=== PATIENT | female | born 1940 | race Caucasian/White ===

== ENCOUNTER 2017-07-19 03:52 | Inpatient (IN) | payer OTHER, MEDICARE ==
[2017-07-19] MEDS ORDERED: NA CHLORIDE 0.9% 1,000 ML ONE ×2 (04:11→06:10)
[2017-07-19] MEDS ORDERED: PANTOPRAZOLE 40 MG INJ ONE ×3 (04:29→06:18)
[2017-07-19] MEDS ORDERED: ONDANSETRON 4 MG/2 ML VIAL ONE (04:29)
[2017-07-19 04:37] LABS: Absolute Lymphocytes (CBC) 1.5 K/uL (0.7-4.9); Absolute Monocytes 0.8 K/uL (0.1-1.3); Absolute Neutrophil 9.5 K/uL (1.8-8.0); Basophils % 0.7 % (0-1.3); Eosinophils % 0.4 % (0-4.4); Hematocrit 34.2 % (36.0-45.0); Lymphocytes % 12.8 % (15.3-44.8); MCH 31.1 pg (27.0-35.0); MCV 94.8 fL (80-100); MPV 7.5 fL (7.6-11.3); Monocytes % 7.1 % (3.3-12.3)
[2017-07-19 04:45] LABS: Protime INR 1.8
[2017-07-19 04:52] LABS: Potassium 5.3 mEq/L (3.6-5.0)
[2017-07-19 04:58] LABS: Albumin 3.4 g/dL (3.2-5.5); Bilirubin Direct 0.1 mg/dL (0-0.2); Bilirubin Total 0.5 mg/dL (0.3-1.2); Protein, Total 6.1 g/dL (6.0-8.3)
[2017-07-19] MEDS ORDERED: NA CHLORIDE 0.9% 250 ML IV SCH (05:00)
[2017-07-19] MEDS: NA CHLORIDE 0.9% 1,000 ML IV SCH ×4 (05:00→19:00)
[2017-07-19] MEDS ORDERED: ONDANSETRON 4 MG/2 ML VIAL IV PRN (05:00)
[2017-07-19] MEDS: PANTOPRAZOLE INJ 80 MG in NA CHLORIDE 0.9% 250 ML IV SCH ×3 (05:00→16:38)
[2017-07-19] MEDS ORDERED: MORPHINE 2 MG/ML SYR IV PRN (05:00)
--- NOTE | 2017-07-19 05:09 | ER ---
Nurse's Notes [facility] Name: Peggy Junior Age: 77 yrs Sex: Female : 1940 Arrival Date: 07/19/2017 Time: 03:55 Bed 7 Private MD: Diagnosis: Gastrointestinal hemorrhage, unspecified Presentation: 07/19 03:56 Presenting complaint: EMS states: Nausea and vomiting since last night. Reports vomited aa1 x 2 and last episode was a dark colored emesis which concerned pt it may be blood. Reports last ate black licorice and drank a coke. Transition of care: patient was not received from another setting of care. Onset of symptoms was July 19, 2017. Risk Assessment: Do you want to hurt yourself or someone else? Patient reports no desire to harm self or others. Initial Sepsis Screen: Does the patient meet any 2 criteria? No. Patient's initial sepsis screen is negative. Does the patient have a suspected source of infection? No. Patient's initial sepsis screen is negative. Care prior to arrival: IV initiated. 20 GA, in the right antecubital area. 03:56 Method Of Arrival: EMS: [facility] aa1 03:56 Acuity: VICTORINO 3 aa1 Triage Assessment: 07:38 GI: Reports nausea, vomiting. tw2 Historical: - Allergies: 04:17 Aspirin; aa1 04:17 Demerol; aa1 04:17 -myocins; aa1 04:17 OPIOID ANALGESICS; aa1 04:17 PENICILLINS; aa1 04:17 SALICYLATES; aa1 - Home Meds: 04:17 gabapentin 600 mg Oral tab twice a day [Active]; magnesium oxide 500 mg Oral tab daily aa1 [Active]; spironolactone 25 mg Oral tab 1 tab once daily [Active]; Xarelto 20 mg Oral tab 1 tab once daily [Active]; Bystolic 5 mg oral tab 1 tab once daily [Active]; - PMHx: 04:21 Alzheimers; Atrial Fib; gastric ulcers; GERD; Hypertension; tremors; Von Willebrand aa1 disease; GI Bleed; - PSHx: 04:21 multiple orthopedic sx; aa1 - Immunization history:: Flu vaccine is up to date. - Social history:: Smoking status: Patient/guardian denies using tobacco. Screenin:55 Abuse screen: Denies threats or abuse. Denies injuries from another. Nutritional aa1 screening: No deficits noted. Tuberculosis screening: No symptoms or risk factors identified. Fall Risk None identified. Assessment: 03:55 General: Appears in no apparent distress. comfortable, Behavior is calm, cooperative, aa1 appropriate for age. Pain: Complains of pain in abdomen Pain currently is 4 out of 10 on a pain scale. Quality of pain is described as crampy. Neuro: Level of Consciousness is awake, alert, obeys commands, Oriented to person, place, time, situation, Moves all extremities. Speech is normal. Cardiovascular: Heart tones S1 S2 present Rhythm is regular. Respiratory: Airway is patent Respiratory effort is even, unlabored, Respiratory pattern is regular, symmetrical. GI: Abdomen is non-distended, Bowel sounds present X 4 quads. Abd is soft and non tender X 4 quads. : No signs and/or symptoms were reported regarding the genitourinary system. EENT: No signs and/or symptoms were reported regarding the EENT system. Derm: Skin is intact, is healthy with good turgor, Skin is clammy, Skin is pale, Skin temperature is warm. Musculoskeletal: Circulation, motion, and sensation intact. Capillary refill < 3 seconds. 04:45 Reassessment: Patient appears in no apparent distress at this time. Patient and/or aa1 family updated on plan of care and expected duration. Pain level reassessed. Patient is alert, oriented x 3, equal unlabored respirations, skin warm/dry/pink. Awaiting provider reassessment. 05:45 Reassessment: Patient appears in no apparent distress at this time. Patient and/or aa1 family updated on plan of care and expected duration. Pain level reassessed. Patient is alert, oriented x 3, equal unlabored respirations, skin warm/dry/pink. Attempted to call report to 2nd floor, was told by charge nurse they were unaware they were receiving the pt and will call back momentarily. 06:08 Reassessment: 2nd attempt made to call report to floor, was placed on hold with no mg2 answer. 06:16 Reassessment: report given to Dari Mendoza RN for room 218. bb 06:20 Reassessment: Pt vomited large amount of bloody emesis then became pale and aa1 diaphoretic. Cleaned of emesis and gown and linens changed. BP decreased at this time, MD notified and additional NS bolus administered. 06:35 Reassessment: Patient appears in no apparent distress at this time. Pt BP improved and aa1 states she is feeling better. No longer appears diaphoretic. Pt had small formed stool with no visible evidence of blood Patient states symptoms have improved. 08:17 Reassessment: Patient appears in no apparent distress at this time. Patient and/or tw2 family updated on plan of care and expected duration. Pain level reassessed. Patient is alert, oriented x 3, equal unlabored respirations, skin warm/dry/pink. 1 unit packed RBC's ordered from lab, see TRANSFUSION RECORD in pts chart, consent signed. Vital Signs: 03:51 BP 114 / 74; Pulse 74; Resp 20; Temp 98.2; Pulse Ox 100% ; Weight 79.38 kg; Height 5 aa1 ft. 6 in. (167.64 cm); Pain 4/10; 04:44 BP 117 / 59; Pulse 75; Resp 16; Pulse Ox 99% on R/A; aa1 05:46 BP 105 / 65; Pulse 85; Resp 16; Pulse Ox 99% on R/A; Pain 0/10; aa1 06:20 BP 67 / 53; Pulse 71; Resp 16; Pulse Ox 98% on R/A; aa1 06:51 BP 110 / 58 (man/); Pulse 74; Resp 16; Pulse Ox 99% on R/A; aa1 08:16 BP 115 / 61; Pulse 76; Resp 17; Pulse Ox 99% on R/A; tw2 03:51 Body Mass Index 28.25 (79.38 kg, 167.64 cm) aa1 ED Course: 03:51 Arm band placed on right wrist. Patient placed in an exam room, on a stretcher. aa1 03:55 Patient arrived in ED. aa1 03:55 Patient has correct armband on for positive identification. Placed in gown. Bed in low aa1 position. Call light in reach. Side rails up X2. monitoring specialist on. Pulse ox on. NIBP on. Warm blanket given. 03:55 Maintain EMS IV. Dressing intact. Good blood return noted. Site clean \T\ dry. Gauge \T\ aa 1 site: 20g RAC. 03:58 Gonzalo Coffman MD is Attending Physician. tw4 04:02 Triage completed. aa1 05:03 Del Mercado MD is Hospitalizing Provider. tw4 05:45 Melani Mcknight RN is Primary Nurse. aa1 05:46 No provider procedures requiring assistance completed. Patient admitted, IV remains in aa1 place. 06:25 Inserted saline lock: 22 gauge in left upper arm, using aseptic technique. aa1 06:40 Repeat lab(s) drawn. by nc, sent to lab. aa1 07:31 Samantha Arredondo RN is Primary Nurse. tw2 10:00 Report given to AILYN Lyons. tw2 Administered Medications: 04:10 Drug: NS 0.9% 1000 ml Route: IV; Rate: 1000 ml; Site: right antecubital; bb 04:35 Drug: Zofran 4 mg Route: IVP; Site: right antecubital; bb 04:35 Drug: ProTONIX 40 mg Route: IVP; Site: right antecubital; bb 06:52 Follow up: Response: No adverse reaction mg2 05:52 Drug: Phenergan 12.5 mg Route: IVP; Site: right antecubital; mg2 06:51 Follow up: Response: No adverse reaction; Vomiting increased mg2 06:20 Drug: ProTONIX 8 mg/hr Route: IV; Rate: 25 ml/hr; Site: right antecubital; bb 06:49 Follow up: IV Status: Infusion continued upon admission aa1 07:00 Follow up: IV Status: Infusion continued upon admission; see meditech chart tw2 06:30 Drug: NS 0.9% 1000 ml Route: IV; Rate: 1000 ml; Site: left upper arm; aa1 08:32 Follow up: IV Status: Completed infusion ae1 Intake: Outcome: 05:08 Decision to Hospitalize by Provider. tw4 12:18 Admitted to ICU accompanied by nurse, accompanied by tech, via stretcher, room 3, on ae1 monitor, with chart, Report called to Olivia Spence RN 12:18 Condition: stable 12:18 Instructed on the need for admit, Demonstrated understanding of instructions, follow-up care. 12:19 Patient left the ED. ae1 Signatures: Melani Mcknight, AILYN RN aa1 Maya Waite RN RN bb Samantha Arredondo RN RN tw2 Cali Ochoa RN RN ae1 Gonzalo Coffman MD MD tw4 Lucas English, RN RN mg2
--- NOTE | 2017-07-19 05:09 | EDPHYS ---
Physician Documentation [facility] Name: Peggy Junior Age: 77 yrs Sex: Female : 1940 Arrival Date: 07/19/2017 Time: 03:55 Bed 7 Private MD: ED Physician Gonzalo Coffman HPI: 07/19 04:24 This 77 yrs old Female presents to ER via EMS with complaints of tw4 Nausea/Vomiting. 04:24 The patient presents to the emergency department with nausea, vomiting, Onset: The tw4 symptoms/episode began/occurred just prior to arrival, today. Possible causes: unknown. The symptoms are aggravated by nothing. The symptoms are alleviated by nothing. Associated signs and symptoms: The patient has no apparent associated signs or symptoms. Severity of symptoms: At their worst the symptoms were moderate in the emergency department the symptoms are unchanged. The patient has not experienced similar symptoms in the past. Historical: - Allergies: 04:17 Aspirin; aa1 04:17 Demerol; aa1 04:17 -myocins; aa1 04:17 OPIOID ANALGESICS; aa1 04:17 PENICILLINS; aa1 04:17 SALICYLATES; aa1 - Home Meds: 04:17 gabapentin 600 mg Oral tab twice a day [Active]; magnesium oxide 500 mg Oral tab daily aa1 [Active]; spironolactone 25 mg Oral tab 1 tab once daily [Active]; Xarelto 20 mg Oral tab 1 tab once daily [Active]; Bystolic 5 mg oral tab 1 tab once daily [Active]; - PMHx: 04:21 Alzheimers; Atrial Fib; gastric ulcers; GERD; Hypertension; tremors; Von Willebrand aa1 disease; GI Bleed; - PSHx: 04:21 multiple orthopedic sx; aa1 - Immunization history:: Flu vaccine is up to date. - Social history:: Smoking status: Patient/guardian denies using tobacco. ROS: 04:24 Constitutional: Negative for fever, chills, and weight loss, Cardiovascular: Negative tw4 for chest pain, palpitations, and edema, Respiratory: Negative for shortness of breath, cough, wheezing, and pleuritic chest pain, Back: Negative for injury and pain, MS/Extremity: Negative for injury and deformity, Neuro: Negative for headache, weakness, numbness, tingling, and seizure, Psych: Negative for depression, anxiety, suicide ideation, homicidal ideation, and hallucinations. 04:24 Abdomen/GI: Positive for nausea, vomiting, and diarrhea, nausea, hematemesis, Negative for vomiting, diarrhea, constipation, rectal pain, rectal bleeding. Exam: 04:24 Constitutional: This is a well developed, well nourished patient who is awake, alert, tw4 and in no acute distress. Head/Face: Normocephalic, atraumatic. Chest/axilla: Normal chest wall appearance and motion. Nontender with no deformity. No lesions are appreciated. Cardiovascular: Regular rate and rhythm with a normal S1 and S2. No gallops, murmurs, or rubs. Normal PMI, no JVD. No pulse deficits. Respiratory: Lungs have equal breath sounds bilaterally, clear to auscultation and percussion. No rales, rhonchi or wheezes noted. No increased work of breathing, no retractions or nasal flaring. Abdomen/GI: Soft, non-tender, with normal bowel sounds. No distension or tympany. No guarding or rebound. No evidence of tenderness throughout. Back: No spinal tenderness. No costovertebral tenderness. Full range of motion. MS/ Extremity: Pulses equal, no cyanosis. Neurovascular intact. Full, normal range of motion. Vital Signs: 03:51 BP 114 / 74; Pulse 74; Resp 20; Temp 98.2; Pulse Ox 100% ; Weight 79.38 kg; Height 5 aa1 ft. 6 in. (167.64 cm); Pain 4/10; 04:44 BP 117 / 59; Pulse 75; Resp 16; Pulse Ox 99% on R/A; aa1 05:46 BP 105 / 65; Pulse 85; Resp 16; Pulse Ox 99% on R/A; Pain 0/10; aa1 06:20 BP 67 / 53; Pulse 71; Resp 16; Pulse Ox 98% on R/A; aa1 06:51 BP 110 / 58 (man/); Pulse 74; Resp 16; Pulse Ox 99% on R/A; aa1 08:16 BP 115 / 61; Pulse 76; Resp 17; Pulse Ox 99% on R/A; tw2 03:51 Body Mass Index 28.25 (79.38 kg, 167.64 cm) aa1 MDM: 03:58 Patient medically screened. tw4 05:08 Differential diagnosis: Nonspecific abd pain, pancreatitis, appendicitis, tw4 diverticulitis. Data reviewed: vital signs, nurses notes. Counseling: I had a detailed discussion with the patient and/or guardian regarding: the historical points, exam findings, and any diagnostic results supporting the discharge/admit diagnosis. Physician consultation: Del Mercado MD was contacted at 05:12, regarding admission, need to come to ED to see patient. Admission orders: after a detailed discussion of the patient's condition and case, the admit orders are written by me. 07/19 04:15 Order name: Amylase, Serum 07/19 04:15 Order name: Basic Metabolic Panel 07/19 04:15 Order name: CBC with Diff; Complete Time: 04:57 07/19 04:57 Interpretation: Normal except: WBC 12.0; HGB 11.2; HCT 34.2; RBC 3.60; RDW 12.0; LYM% tw4 12.8; KAROLYN% 79.0; MPV 7.5. 07/19 04:15 Order name: Creatinine for Radiology; Complete Time: 04:57 tw07/19 04:15 Order name: Hepatic Function 07/19 04:15 Order name: Lipase 07/19 04:15 Order name: Urine Microscopic Only 07/19 04:15 Order name: Type And Screen 07/19 04:15 Order name: Ptt, Activated 07/19 04:15 Order name: PT-INR 07/19 04:50 Order name: Urine Dipstick--Ancillary (enter results) 2 07/19 05:05 Order name: CBC with Automated Diff EDMS 07/19 05:05 Order name: CBC with Automated Diff EDMS 07/19 05:05 Order name: Hematocrit EDMS 07/19 05:05 Order name: Hematocrit EDMS 07/19 05:05 Order name: Hematocrit EDMS 07/19 05:05 Order name: Hematocrit EDMS 07/19 05:05 Order name: Hemoglobin EDMS 07/19 05:05 Order name: Hemoglobin EDMS 07/19 05:05 Order name: Hemoglobin EDMS 07/19 05:05 Order name: Hemoglobin EDMS 07/19 05:05 Order name: Protime (+INR) EDMS 07/19 05:05 Order name: Protime (+INR) EDIL 07/19 05:05 Order name: PTT, Activated Partial Thromb EDIL 07/19 05:05 Order name: PTT, Activated Partial Thromb EDIL 07/19 06:36 Order name: Hemoglobin 07/19 06:36 Order name: Hematocrit 07/19 06:56 Order name: Hemoglobin EDIL 07/19 06:56 Order name: Hematocrit EDIL 07/19 04:15 Order name: IV Saline Lock; Complete Time: 04:26 tw4 07/19 04:15 Order name: Labs collected and sent; Complete Time: 04:26 tw4 07/19 04:15 Order name: Urine Dipstick-Ancillary (obtain specimen); Complete Time: 04:43 tw4 07/19 05:04 Order name: CONS Pharmacy Consult EDIL 07/19 05:04 Order name: CONS Physician Consult EDIL 07/19 05:04 Order name: NPO EDIL 07/19 05:04 Order name: EKG Electrocardiogram EDIL 07/19 05:04 Order name: EKG Electrocardiogram EDIL 07/19 05:04 Order name: EKG Electrocardiogram EDIL 07/19 05:04 Order name: EKG Electrocardiogram EDMS 07/19 05:05 Order name: EKG Electrocardiogram EDMS 07/19 05:05 Order name: EKG Electrocardiogram EDMS 07/19 05:05 Order name: EKG Electrocardiogram EDMS 07/19 05:05 Order name: EKG Electrocardiogram EDIL 07/19 05:05 Order name: EKG Electrocardiogram EDMS 07/19 05:05 Order name: EKG Electrocardiogram EDMS 07/19 05:05 Order name: EKG Electrocardiogram EDIL 07/19 06:26 Order name: Transfuse; Complete Time: 08:32 tw4 Administered Medications: 04:10 Drug: NS 0.9% 1000 ml Route: IV; Rate: 1000 ml; Site: right antecubital; bb 04:35 Drug: Zofran 4 mg Route: IVP; Site: right antecubital; bb 04:35 Drug: ProTONIX 40 mg Route: IVP; Site: right antecubital; bb 06:52 Follow up: Response: No adverse reaction mg2 05:52 Drug: Phenergan 12.5 mg Route: IVP; Site: right antecubital; mg2 06:51 Follow up: Response: No adverse reaction; Vomiting increased mg2 06:20 Drug: ProTONIX 8 mg/hr Route: IV; Rate: 25 ml/hr; Site: right antecubital; bb 06:49 Follow up: IV Status: Infusion continued upon admission aa1 07:00 Follow up: IV Status: Infusion continued upon admission; see [facility] chart tw2 06:30 Drug: NS 0.9% 1000 ml Route: IV; Rate: 1000 ml; Site: left upper arm; aa1 08:32 Follow up: IV Status: Completed infusion ae1 Disposition: 07/19/17 05:08 Hospitalization ordered by Del Mercado for Inpatient Admission. Preliminary diagnosis is Gastrointestinal hemorrhage, unspecified. - Bed requested for Intensive Care Unit. - Status is Inpatient Admission. ae1 - Condition is Stable. - Problem is new. - Symptoms have improved. UTI on Admission? No Signatures: Dispatcher [employer] EDMS Jermaine Escoto rg2 Kalpana Junior RN RN kl Melani Mcknight RN RN aa1 Maya Waite RN RN bb Cali Ochoa RN RN ae1 Anat Rosas RN RN df Gonzalo Coffman MD MD tw4 Lucas English RN RN mg2 Samantha Arredondo RN tw2 Corrections: (The following items were deleted from the chart) 04:57 04:57 WBC 12.0; HGB 11.2; HCT 34.2; RBC 3.60; RDW 12.0; LYM% 12.8; KAROLYN% 79.0; MPV 7.5. tw4 tw4 05:21 05:08 Hospitalization Ordered by Del Mercado MD for Inpatient Admission. Preliminary kl diagnosis is Gastrointestinal hemorrhage, unspecified. Bed requested for Telemetry/MedSurg (Inpatient). Status is Inpatient Admission. Condition is Stable. Problem is new. Symptoms have improved. UTI on Admission? No. tw4 06:28 05:21 07/19/2017 05:08 Hospitalization Ordered by Del Mercado MD for Inpatient rg2 Admission. Preliminary diagnosis is Gastrointestinal hemorrhage, unspecified. Bed requested for Telemetry/MedSurg (Inpatient). Status is Inpatient Admission. Condition is Stable. Problem is new. Symptoms have improved. UTI on Admission? No. kl 10:50 06:28 07/19/2017 05:08 Hospitalization Ordered by Del Mercado MD for Inpatient df Admission. Preliminary diagnosis is Gastrointestinal hemorrhage, unspecified. Bed requested for [facility] ER HOLD. Status is Inpatient Admission. Condition is Stable. Problem is new. Symptoms have improved. UTI on Admission? No. rg2 12:19 10:50 07/19/2017 05:08 Hospitalization Ordered by Del Mercado MD for Inpatient ae1 Admission. Preliminary diagnosis is Gastrointestinal hemorrhage, unspecified. Bed requested for Intensive Care Unit. Status is Inpatient Admission. Condition is Stable. Problem is new. Symptoms have improved. UTI on Admission? No. df
[2017-07-19 05:16] LABS: Urine Blood NEGATIVE (NEG); Urine Glucose NEGATIVE (NEG); Urine Protein 2+ (NEG); Urine Specific Gravity 1.015 (1.005-1.030); Urine pH 6.5 (5.0-7.0)
[2017-07-19] MEDS ORDERED: PROMETHAZINE 25 MG/ML VIAL ONE (05:42)
[2017-07-19 05:55] LABS: Urine Bacteria <20 /HPF (<20); Urine Culture Reflex Order REFLEXED; Urine RBC <5 /HPF (NONE SEEN)
[2017-07-19] MEDS ORDERED: NA CHLORIDE 0.9% 250 ML ONE (06:13)
[2017-07-19] MEDS ORDERED: Morphine 2 MG/2 ML SYR IV PRN (07:18)
[2017-07-19] MEDS ORDERED: NA CHLORIDE 0.9% 500 ML ONE ×2 (08:02→13:07)
--- NOTE | 2017-07-19 09:11 | P.HP ---
Certification for Inpatient Patient admitted to: Inpatient With expected LOS: >2 Midnights Patient will require the following post-hospital care: None Practitioner: I am a practitioner with admitting privileges, knowledge of patient current condition, hospital course, and medical plan of care. Services: Services provided to patient in accordance with Admission requirements found in Title 42 Section 412.3 of the Code of Federal Regulations Patient History Date of Service: 07/19/17 Reason for admission: GI bleeding History of Present Illness: Patient is a 77-year-old female who was admitted to the hospital with a gastrointestinal bleeding. Patient has the longstanding history of alcohol use. She used to drink more regularly in the past but now drinks about 2 bottles of 12 oz beer daily. She was having some shoulder pain and decided to take 2 Aleve as well. About 24 hr after that she noticed she was nauseated and when she vomited she had coffee-ground emesis and also some bright red blood. She had a large stool while she was in the emergency room and this was melanotic. Patient has dementia however she is able to communicate effectively. Her gives most of the information. Her hemoglobin has dropped while she has been in the Emergency Room and plan is to transfuse her 2 units of packed red blood cells and get a GI consultation. Will keep her on a PPI drip and put her on DT prevention. The patient also has a history of atrial fibrillation. Patient is taking sotalol as well as Xarelto in the past. Will update her home medication list to see if she is still on an anticoagulant. She was started on Bystolic recently by her primary care provider. There is mention that she is on sotalol already. Will have to review her home medications. Also she was told she had von Willebrand's disease when she was young. She had genetic testing done at [facility] in [place]. However, when she was older and the test had become more sophisticated she states she was tested and it came out negative. She was told that she does not have Von Willebrand's disease. is Allergies Penicillins Allergy (Mild, Unverified 06/28/16 12:45) Unknown meperidine [From Demerol] Allergy (Unverified 06/05/16 20:11) Unknown salicylates Allergy (Verified 03/31/16 20:26) Rash aspirin Adverse Reaction (Verified 03/31/16 20:26) bleeding -myocins Allergy (Intermediate, Uncoded 03/31/16 20:26) Itching OPIOID ANAL Allergy (Uncoded 08/07/16 18:56) Unknown OPIOID ANALG Allergy (Uncoded 07/24/16 22:10) Unknown OPIOID ANALGES Allergy (Uncoded 06/05/16 20:11) Unknown OPIOID ANALGESI Allergy (Uncoded 07/11/16 12:30) Unknown Home Medications: Magnesium Oxide [Mag 0X*] 400 mg PO BID #60 tab 07/08/15 Gabapentin 1 tab PO BID 03/31/16 Rivaroxaban [Xarelto] 20 mg PO DAILY AT SUPPER #30 tablet 04/13/16 Rivastigmine Patch [Exelon 4.6 mg Patch*] 4.6 mg TD DAILY patch 04/13/16 Sotalol HCl [Betapace*] 80 mg PO BID 6AM 6PM tab 04/13/16 - Past Medical/Surgical History Has patient received pneumonia vaccine in the past: Yes Diabetic: No -: HTN -: A-fib -: Arthritis -: gastric ulcer with perforation -: Syncope -: last week in [place] [facility].-dx w/C-diff & Salmonella -: GERD -: L knee sx 2010 -: Perforated Peptic ulcer sx-2012 - Family History Mother Medical History: Heart disease Notes: thyroid disease Brother Medical History: Hypertension, Cancer - Social History Alcohol use: Yes CD- Drugs: No Caffeine use: Yes Review of Systems 10-point ROS is otherwise unremarkable Physical Examination - Vital Signs Temperature: 97.7 F Blood Pressure: 108/56 Pulse: 73 Respirations: 17 Pulse Ox (%): 100 - Physical Exam General: Alert, In no apparent distress, Oriented x2 HEENT: Atraumatic, PERRLA, Mucous membr. moist/pink, EOMI, Sclerae nonicteric Neck: Supple, 2+ carotid pulse no bruit, No LAD, Without JVD or thyroid abnormality Respiratory: Clear to auscultation bilaterally, Normal air movement Cardiovascular: Regular rate/rhythm, Normal S1 S2, No murmurs Gastrointestinal: Normal bowel sounds, Soft and benign, Non-distended, No tenderness Musculoskeletal: No clubbing, No swelling, No tenderness Integumentary: No rashes Neurological: Normal gait, Normal speech, Normal strength at 5/5 x4 extr, Normal tone, Sensation intact, Cranial nerves 3-12 intact, Normal affect Lymphatics: No axilla or inguinal lymphadenopathy - Studies Laboratory Data (last 24 hrs) 07/19/17 05:15: Hgb Cancelled, Hct Cancelled 07/19/17 03:55: PT 21.4 H, INR 1.80, APTT 34.8 07/19/17 03:55: Creatinine 1.05 H 07/19/17 03:55: WBC 12.0 H, Hgb 11.2 L, Hct 34.2 L, Plt Count 390 07/19/17 03:55: Sodium 126 L, Potassium 5.3 H, BUN 36 H, Creatinine 1.07 H, Glucose 110, Total Bilirubin 0.5, AST 18, ALT 14, Alkaline Phosphatase 87, Amylase 107 H, Lipase 22 Assessment & Plan - Problems (Diagnosis) (1) GI bleeding Current Visit: Yes Status: Acute (2) Anemia associated with acute blood loss Current Visit: Yes Status: Acute (3) Alcohol abuse Current Visit: Yes Status: Acute (4) Ulcer of stomach due to nonsteroidal anti-inflammatory drug (NSAID) in therapeutic use Current Visit: Yes Status: Acute - Plan 1. Continue with IV hydration and PPI drip 2. Continue with IV Ativan and Librium as needed. Also a banana bag daily. 3. Continue with pain control 4. NPO 5. gastrointestinal consultation 6. Monitor LFTs and lipase along with electrolytes and serial H&H. 7. GI and DVT prophylaxis Discharge Plan: Home Plan to discharge in: 24 Hours - Advance Directives Does patient have a Living Will: No Does patient have a Durable POA for Healthcare: Yes - Code Status/Comfort Care Code Status Assessed: Yes Code Status: Full Code Critical Care: No Time Spent Managing PTS Care (In Minutes): 50
[2017-07-19] MEDS: OCTREOTIDE 500 MCG in NA CHLORIDE 0.9% 500 ML IV SCH ×2 (10:00→21:00)
[2017-07-19] MEDS: chlordiazePOXIDE HCl 5 MG CAP PO SCH ×2 (14:00→20:51)
[2017-07-19 19:17] LABS: Hematocrit 31.2 % (36.0-45.0)
[2017-07-19] MEDS ORDERED: SOD POLYSTYREN SUL 15 GM/60 ML UCUP PO ONE (22:03)
[2017-07-20] MEDS: PANTOPRAZOLE INJ 80 MG in NA CHLORIDE 0.9% 250 ML IV SCH ×4 (01:50→21:00)
[2017-07-20] MEDS: LORazepam 2 MG/ML VIAL IV PRN ×6 (02:05→21:31)
[2017-07-20] MEDS: OCTREOTIDE 500 MCG in NA CHLORIDE 0.9% 500 ML IV SCH ×3 (05:55→20:20)
[2017-07-20] MEDS: SOD POLYSTYREN SUL 15 GM/60 ML UCUP PO ONE ×2 (05:55→06:00)
[2017-07-20] MEDS ORDERED: PIPER/TAZO/NS 3.375gm 3.375 GM/100 ML BAG IVPB SCH (09:00)
[2017-07-20] MEDS: chlordiazePOXIDE HCl 5 MG CAP PO SCH ×3 (09:00→20:44)
--- NOTE | 2017-07-20 11:29 | P.PN ---
Subjective Date of Service: 07/20/17 Chief Complaint: GI bleeding Pt seen and examined at bedside with RN. Chart reviewed and Case DW with GI. Pt is currently is resting comfortably. Overnight pt was agitated and pulled out her IV line. Did not receive protonix for total of 8 hrs while the IV is out. Review of Systems General: As per HPI Physical Examination - Vital Signs Temperature: 97.4 F Blood Pressure: 137/60 Pulse: 53 Respirations: 20 Pulse Ox (%): 99 - Physical Exam General: Oriented x2, Cachectic, Other (Lethargic. ) HEENT: Atraumatic Neck: Supple, JVD not distended Respiratory: Normal air movement, Crackles/rales Cardiovascular: Regular rate/rhythm, Normal S1 S2 Gastrointestinal: Normal bowel sounds, Soft and benign, Non-distended, No tenderness, Ascites Musculoskeletal: No tenderness Integumentary: No rashes Neurological: Normal strength at 5/5 x4 extr, Normal tone, Normal affect Lymphatics: No axilla or inguinal lymphadenopathy - Studies Medications List Reviewed: Yes Assessment & Plan - Problems (Diagnosis) (1) GI bleeding Onset Date: 07/19/17 Current Visit: Yes Status: Acute Plan: GI bleeding with H/o Duodenal Ulcer now with dark tarry stools -IV fluids -IV protonix and Octreotide -GI consulted. Scheduled for EGD stanislaw -H/H q4h Qualifiers: GI bleed type/associated pathology: duodenal ulcer Qualified Code(s): K26.4 - Chronic or unspecified duodenal ulcer with hemorrhage (2) Ulcer of stomach due to nonsteroidal anti-inflammatory drug (NSAID) in therapeutic use Onset Date: 07/19/17 Current Visit: Yes Status: Chronic Plan: H/o of Duodenal ulcer with recent use of NSAIDS -See # 1 (3) Anemia associated with acute blood loss Onset Date: 07/19/17 Current Visit: Yes Status: Acute (4) Alcohol abuse Onset Date: 07/19/17 Current Visit: Yes Status: Acute Plan: Alcohol assessment qshift -Ativan for WD (5) UTI (urinary tract infection) Onset Date: 05/26/15 Current Visit: No Status: Acute Plan: Urine culture + for Gram - rods -Started on Meropenum. -Pt allergic to PCN Qualifiers: Urinary tract infection type: acute cystitis Hematuria presence: without hematuria Qualified Code(s): N30.00 - Acute cystitis without hematuria (6) Hyperlipidemia Onset Date: 06/14/16 Current Visit: No Status: Chronic Qualifiers: Hyperlipidemia type: unspecified Qualified Code(s): E78.5 - Hyperlipidemia , unspecified (7) Atrial fibrillation Current Visit: No Status: Chronic Plan: Held Anticoagulation at this time due to Acute bleeding Qualifiers: Atrial fibrillation type: chronic Qualified Code(s): I48.2 - Chronic atrial fibrillation (8) HTN (hypertension) Onset Date: 06/14/16 Current Visit: No Status: Chronic Qualifiers: Hypertension type: essential hypertension Qualified Code(s): I10 - Essential (primary) hypertension Discharge Plan: Home Plan to discharge in: 48 Hours - Code Status/Comfort Care Code Status Assessed: Yes Critical Care: No
[2017-07-20] MEDS ORDERED: Meropenem 1000 MG/VIAL IV SCH (12:00)
--- NOTE | 2017-07-20 14:16 | RAD REPORT ---
EXAM DESCRIPTION: RAD - Chest Single View - 07/20/2017 2:10 pm CLINICAL HISTORY: PICC line placement COMPARISON: None. FINDINGS: Portable chest was obtained following placement of a right upper extremity PICC line. The catheter tip is in the right atrium.
[2017-07-20] MEDS: Meropenem 1,000 MG in NA CHLORIDE 0.9% 100 ML IV SCH ×2 (15:16→21:27)
[2017-07-20] MEDS: FOLIC ACID 1 MG, MULTIVITAMINS INJ 10 ML, THIAMINE HCL 100 MG in NA CHLORIDE 0.9% 1,000 ML IV SCH (15:16)
[2017-07-20 15:28] LABS: Absolute Lymphocytes (CBC) 2.2 K/uL (0.7-4.9); Absolute Monocytes 0.8 K/uL (0.1-1.3); Absolute Neutrophil 6.3 K/uL (1.8-8.0); Basophils % 1.3 % (0-1.3); Eosinophils % 1.7 % (0-4.4); Hematocrit 29.1 % (36.0-45.0); Lymphocytes % 23.1 % (15.3-44.8); MCH 32.4 pg (27.0-35.0); MCV 92.7 fL (80-100); MPV 7.8 fL (7.6-11.3); Monocytes % 8.4 % (3.3-12.3); RBC Red Blood Cell Count 3.14 M/uL (3.86-4.86)
[2017-07-20 16:42] LABS: Albumin 3.4 g/dL (3.2-5.5); Bilirubin Total 1.1 mg/dL (0.3-1.2); Potassium 4.2 mEq/L (3.6-5.0); Protein, Total 5.5 g/dL (6.0-8.3)
[2017-07-20 16:44] LABS: Protime INR 1.05
--- NOTE | 2017-07-20 17:12 | CON ---
Identification: A 77-year-old female, ICU bed 3, Dr. Christina. Reason For Consultation: GI bleeding. History Of Present Illness: Ms. Junior is a 77-year-old female, who has dementia. She also has histo ry of bleeding ulcer in the past that has been repaired surgically. Apparently, the patient presente d with generalized symptoms of weakness, shortness of breath, unable to carry out normal activities. She has been also complaining of I think 1-week history of dark tarry stool. Denies any hematemesis . Denies any odynophagia, dysphagia. Denies any dyspepsia. The patient answered some questions appropriately; however, also she veers to irrelevant and inapprop riate conversation. At this time, denies any abdominal discomfort. Admits that she is weak. Past Medical History: As elaborated above in addition to hypertension. Past Surgical History: As above. Further is unknown at this time, no family member is nearby. Social History: History of alcohol use in the past. Psychiatric History: As elaborated above. Allergies: REVIEWED IN THE CHART. Medications: Reviewed in the chart. Review of Systems: Due to the patient's condition, it is hard to get and I am not sure how reliable it is. However what is evident is that, she has chronic deterioration of her health status. Physical Examination: General: Elderly female, at this time appears to be pale. No other acute distress noted. Hemodynam ic and respiratory profile within normal range. HEENT: Atraumatic, normocephalic. Oropharyngeal area is clear. Positive pallor. No icterus noted. Neck: Supple. No lymphadenopathy. Trachea central in position. CHEST: Poor air exchange; however, this is due to the patient's lack of cooperation. Cardiac: S1, S2 is accentuated. No S3, no S4. Abdomen: Soft, nontender, nondistended. Bowel sounds are excellent. Hepatomegaly, splenomegaly, an d ascites cannot be palpated because she is unable to cooperate, although she seems to be trying to c ooperate. Bowel sounds are excellent. No rebound tenderness. Neurologic: She is awake, alert and oriented x2. Memory is probably impaired. Judgment, I am not s ure. She can move all her extremities without any focal finding. Dermatologic: Shows decreased skin turgor. Some loss of subcutaneous pad of fat in the abdominal ar ea. Extremities: Upper and lower extremity muscle mass is symmetrically reduced. Diagnostic Data: Reviewed and analyzed, consistent with anemia. Impression, Plan, And Recommendation: Ms. Junior is a 77-year-old female with melena. She is still s ignificantly weak and somewhat short of breath. At this time, does not have any abdominal pain. She has past history of peptic ulcer disease and given the significant anemia and melena, she will need an upper GI endoscopy. I will prefer her to continue on proton pump inhibitor and IV octreotide. Fo llow serial hemoglobin, hematocrit. Transfuse as needed. I have discussed with her regarding the indications, contraindications, possible complications, alter natives of EGD. She seems to have a basic understanding and its potential risk of complication, alth ough I am not sure how much insight she has. Her ASA classification will be 3. Procedure will be do ne tomorrow to make sure hemoglobin and hematocrit is good. Preferably, I would like hemoglobin above 8 with transfusion. The patient did not have any question. JEAN/DOMINIQUE Voice ID: [id number] Report ID: [id number]
[2017-07-21] MEDS: PANTOPRAZOLE INJ 80 MG in NA CHLORIDE 0.9% 250 ML IV SCH ×2 (05:51→17:00)
--- NOTE | 2017-07-21 06:42 | EKG ---
Test Date: 2017-07-21 Test Time: 05:34:31 Group Therapist: RT MEASUREMENT RESULTS: Intervals: Rate: 59 OH: 170 QRSD: 120 QT: 424 QTc: 419 [place]: P: -3 OH: 170 QRS: -22 T: 55 INTERPRETIVE STATEMENTS: Sinus bradycardia Incomplete left bundle branch block Borderline ECG Compared to ECG 08/07/2016 15:33:11 Left bundle-branch block now present Sinus rhythm no longer present Ventricular premature complex(es) no longer present Myocardial infarct finding no longer present Electronically Signed On 07-21-17 06:41:59 CDT by Kennedy Herrera
[2017-07-21] MEDS: OCTREOTIDE 500 MCG in NA CHLORIDE 0.9% 500 ML IV SCH (06:43)
[2017-07-21] MEDS: LORazepam 2 MG/ML VIAL IV PRN ×4 (07:19→18:55)
[2017-07-21] MEDS ORDERED: Ringers Lactate 1,000 ML IV ONE (08:16)
[2017-07-21] MEDS: Meropenem 1,000 MG in NA CHLORIDE 0.9% 100 ML IV SCH (09:00)
[2017-07-21] MEDS: chlordiazePOXIDE HCl 5 MG CAP PO SCH ×3 (09:00→21:00)
[2017-07-21] MEDS ORDERED: PROPOFOL 200 MG/20 ML VIAL IV ONE (09:43)
[2017-07-21] MEDS: NA CHLORIDE 0.9% 1,000 ML IV SCH (11:00)
--- NOTE | 2017-07-21 11:32 | P.PN ---
Subjective Date of Service: 07/21/17 Chief Complaint: GI bleeding Pt seen and examined at bedside with RN. Chart reviewed and Case DW with GI. Pt is currently is resting comfortably. Pt is currently S/p EGD. Doing well overall. No complains to offer overnight. Review of Systems General: As per HPI Physical Examination - Vital Signs Temperature: 97 F Blood Pressure: 151/89 Pulse: 62 Respirations: 16 Pulse Ox (%): 100 - Physical Exam General: Alert, In no apparent distress HEENT: Atraumatic, PERRLA, EOMI Neck: Supple, JVD not distended Respiratory: Clear to auscultation bilaterally, Normal air movement Cardiovascular: Regular rate/rhythm, Normal S1 S2 Gastrointestinal: Normal bowel sounds, No tenderness Musculoskeletal: No tenderness Integumentary: No rashes Neurological: Normal speech, Normal tone, Normal affect Lymphatics: No axilla or inguinal lymphadenopathy - Studies Microbiology Data (last 24 hrs): 07/19/17 04:40 Clean Catch Urine Hermann Count - Final >100,000 CFU/ML. 07/19/17 04:40 Clean Catch Urine - Final Enterobacter Cloacae Medications List Reviewed: Yes Assessment & Plan - Problems (Diagnosis) (1) GI bleeding Onset Date: 07/19/17 Current Visit: Yes Status: Acute Plan: GI bleeding with H/o Duodenal Ulcer now with dark tarry stools -GI consulted. Appreciate Reccs -S/P EGD POD# 0 -Large Gastric Ulcer -IV protonix for now -CLD now -BMP q4h Qualifiers: GI bleed type/associated pathology: duodenal ulcer Qualified Code(s): K26.4 - Chronic or unspecified duodenal ulcer with hemorrhage (2) Ulcer of stomach due to nonsteroidal anti-inflammatory drug (NSAID) in therapeutic use Onset Date: 07/19/17 Current Visit: Yes Status: Chronic Plan: H/o of Duodenal ulcer with recent use of NSAIDS -See # 1 (3) Anemia associated with acute blood loss Onset Date: 07/19/17 Current Visit: Yes Status: Acute (4) Alcohol abuse Onset Date: 07/19/17 Current Visit: Yes Status: Acute Plan: Alcohol assessment qshift -Ativan for WD (5) UTI (urinary tract infection) Onset Date: 05/26/15 Current Visit: No Status: Acute Plan: Urine culture + for ESBL -Started on Meropenum 04/13 -Pt allergic to PCN Qualifiers: Urinary tract infection type: acute cystitis Hematuria presence: without hematuria Qualified Code(s): N30.00 - Acute cystitis without hematuria (6) Hyperlipidemia Onset Date: 06/14/16 Current Visit: No Status: Chronic Qualifiers: Hyperlipidemia type: unspecified Qualified Code(s): E78.5 - Hyperlipidemia , unspecified (7) Atrial fibrillation Current Visit: No Status: Chronic Plan: Held Anticoagulation at this time due to Acute bleeding Qualifiers: Atrial fibrillation type: chronic Qualified Code(s): I48.2 - Chronic atrial fibrillation (8) HTN (hypertension) Onset Date: 06/14/16 Current Visit: No Status: Chronic Qualifiers: Hypertension type: essential hypertension Qualified Code(s): I10 - Essential (primary) hypertension Discharge Plan: Home Plan to discharge in: 48 Hours - Code Status/Comfort Care Code Status Assessed: Yes Critical Care: No
[2017-07-21] MEDS: FOLIC ACID 1 MG, MULTIVITAMINS INJ 10 ML, THIAMINE HCL 100 MG in NA CHLORIDE 0.9% 1,000 ML IV SCH (11:36)
[2017-07-21 11:38] LABS: Absolute Lymphocytes (CBC) 1.1 K/uL (0.7-4.9); Absolute Monocytes 0.6 K/uL (0.1-1.3); Absolute Neutrophil 5.4 K/uL (1.8-8.0); Basophils % 1.1 % (0-1.3); Eosinophils % 2.9 % (0-4.4); Hematocrit 28.6 % (36.0-45.0); Lymphocytes % 14.4 % (15.3-44.8); MCH 31.5 pg (27.0-35.0); MPV 7.5 fL (7.6-11.3); Monocytes % 7.9 % (3.3-12.3); RBC Red Blood Cell Count 3.04 M/uL (3.86-4.86)
[2017-07-21 11:49] LABS: Albumin 3.1 g/dL (3.2-5.5); Bilirubin Total 0.6 mg/dL (0.3-1.2); Potassium 4.2 mEq/L (3.6-5.0); Protein, Total 5.2 g/dL (6.0-8.3)
--- NOTE | 2017-07-21 17:20 | RAD REPORT ---
EXAM DESCRIPTION: RAD - Chest Single View - 07/21/2017 5:15 pm CLINICAL HISTORY: PICC line placement. COMPARISON: None. FINDINGS: Portable chest was obtained following placement of a right upper extremity PICC line. The catheter tip is in the right atrium. Consider 2 cm of retraction for optimal placement.
--- NOTE | 2017-07-21 20:13 | OP ---
Surgeon: Jose Antonio Hardin MD Procedure Performed: Esophagogastroduodenoscopy. Indication For Procedure: Upper GI bleed. For full details, please refer to Dr. Portillo's consultation . Plan For Anesthesia: Monitored anesthesia care. Complexity: High due to probability of therapeutic intervention. Technique: After obtaining informed consent from the patient and explaining risks and complications, which include, but are not limited to bleeding, infection, perforation, and anesthesia complications , the patient was placed in the left lateral position and sedation was given. From then on, the scop e was advanced into the mouth and carefully guided up till the second portion of the duodenum. No ac tive bleeding seen, but stigmata of recent bleeding were identified. After the completion of examina tion, the scope and equipment were withdrawn and procedure terminated in a safe manner. Findings: Esophagus: In the distal esophagus a moderate stricture was visualized along with a deep ulcer. This also was clean based. The stricture allowed for just passage of the scope, probably leandra l need to be dilated in the future. There was also a small hiatal hernia that was seen. Stomach: Mild patchy erythema seen in the antrum. A large created but clean based ulcer was visuali zed. The ulcer was almost encompassing the half circumference of the antrum near the pyloric channel . Biopsies were taken from ulcer margin. Also, biopsies were taken from gastric body and antrum. D uodenum, the bulb, and second portion appeared normal. Complications: None. Tolerance: None. Anesthesia: Excellent. Postoperative Diagnoses: Large gastric ulcer, which is clean based, likely source of bleeding; esoph ageal ulcers, esophageal stenosis, hiatal hernia, gastritis. Plan: 1.Await pathology results. 2.We can start patient on clear liquid diet and advance as tolerated. 3.We will stop IV octreotide but continue her on the IV PPI. 4.Avoid NSAIDs. 5.We will need followup EGD probably in the next 2-3 weeks to take more biopsies of the ulcer. If t he initial biopsy is negative, she will need to follow up in the GI Clinic in 2-3 weeks. US/DARRELL Voice ID: [id number] Report ID: [id number]
[2017-07-21] MEDS ORDERED: levoFLOXacin 250 MG TAB PO SCH (21:00)
[2017-07-22] MEDS: LORazepam 2 MG/ML VIAL IV PRN ×2 (02:00→03:59)
[2017-07-22] MEDS: PANTOPRAZOLE INJ 80 MG in NA CHLORIDE 0.9% 250 ML IV SCH (02:26)
[2017-07-22 05:55] VITALS: BMI 28.8
[2017-07-22] MEDS: chlordiazePOXIDE HCl 5 MG CAP PO SCH (09:00)
[2017-07-22 09:16] VITALS: TEMP 97.4
--- NOTE | 2017-07-22 10:06 | P.DS ---
Admission Date: 07/19/17 Discharge Date: 07/22/17 Disposition: ROUTINE DISCHARGE Discharge Condition: GOOD Reason for Admission: GI bleeding Consultations: GI- Procedures: EGD: Large gastric ulcer, which is clean based, likely source of bleeding; esophageal ulcers, esophageal stenosis, hiatal hernia, gastritis. Plan: 1. Patient to avoid nonsteroidal anti-inflammatories. 2. Patient will continue with PPI twice daily. 3. Patient will need repeat EGD in 2-3 weeks to take more biopsies of ulcer. Patient will need close follow up with GI. - Problems (1) Gastric ulcer Current Visit: Yes Status: Acute Qualifiers: Gastric ulcer chronicity: acute Gastric ulcer complication status: with hemorrhage Qualified Code(s): K25.0 - Acute gastric ulcer with hemorrhage (2) Esophageal ulcer Current Visit: Yes Status: Acute Qualifiers: Esophageal ulcer bleeding: with bleeding Qualified Code(s): K22.11 - Ulcer of esophagus with bleeding (3) GI bleeding Onset Date: 07/19/17 Current Visit: Yes Status: Acute Qualifiers: GI bleed type/associated pathology: duodenal ulcer Qualified Code(s): K26.4 - Chronic or unspecified duodenal ulcer with hemorrhage (4) Anemia associated with acute blood loss Onset Date: 07/19/17 Current Visit: Yes Status: Acute (5) Alcohol abuse Onset Date: 07/19/17 Current Visit: Yes Status: Chronic (6) Ulcer of stomach due to nonsteroidal anti-inflammatory drug (NSAID) in therapeutic use Onset Date: 07/19/17 Current Visit: Yes Status: Chronic (7) Senile dementia Onset Date: 06/14/16 Current Visit: No Status: Chronic Qualifiers: Dementia behavioral disturbance: with behavioral disturbance Qualified Code (s): F03.91 - Unspecified dementia with behavioral disturbance (8) Hyperlipidemia Onset Date: 06/14/16 Current Visit: No Status: Chronic Qualifiers: Hyperlipidemia type: unspecified Qualified Code(s): E78.5 - Hyperlipidemia , unspecified (9) Atrial fibrillation Current Visit: No Status: Chronic Qualifiers: Atrial fibrillation type: paroxysmal Qualified Code(s): I48.0 - Paroxysmal atrial fibrillation (10) HTN (hypertension) Onset Date: 06/14/16 Current Visit: No Status: Chronic Qualifiers: Hypertension type: essential hypertension Qualified Code(s): I10 - Essential (primary) hypertension (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 Onset Date: 05/12/15 Current Visit: No Status: Chronic (12) Hiatal hernia with GERD Current Visit: Yes Status: Chronic (13) Osteoarthritis, multiple sites Onset Date: 06/14/16 Current Visit: No Status: Chronic Qualifiers: Osteoarthritis type: unspecified Qualified Code(s): M15.9 - Polyosteoarthritis, unspecified (14) UTI (urinary tract infection) Onset Date: 05/26/15 Current Visit: No Status: Acute Qualifiers: Urinary tract infection type: acute cystitis Hematuria presence: without hematuria Qualified Code(s): N30.00 - Acute cystitis without hematuria Brief History of Present Illness: 77-year-old female presented emergency room with coffee-ground emesis. Patient admitted for GI bleed. Patient found to be anemic. Blood transfusion initiated. GI consulted. Hospital Course: Patient presented with upper GI bleed. Patient required transfusion of blood. Patient with history of GERD. Patient also with recent history of nonsteroidal anti-inflammatory use for arthritis. Patient also on chronic anti coagulation due to atrial fibrillation. The patient was admitted to ICU. GI was consulted. Patient stabilize. Patient eventually had a EGD showing large gastric ulcer which is clean base likely source of bleeding, esophageal ulcers, esophageal stenosis, hiatal hernia and gastritis. Biopsy obtained. Biopsy pending at discharge. Patient doing well at discharge. Hemoglobin stable at 9.6. Patient able tolerate her diet. At discharge. Recommendation is to avoid nonsteroidal anti-inflammatory use. Patient will continue with Protonix 40 mg 1 pill twice daily. Patient will need to follow up with GI in 2-4 weeks to monitor progress. Patient will need repeat EGD in 2-4 weeks for repeat biopsies and monitoring of ulcer. Patient will need a follow up biopsy report. Recommendation is also to hold for chronic anti coagulation therapy-Xarelto for her atrial fibrillation for 48 hours. After 48 hr the medication can be continued. They to monitor for bleeding, melena or hematemesis. Patient also found to have a UTI during her stay. Urine culture was positive for enterobacter. At discharge patient will continue with Levaquin 250 mg 1 pill daily for 7 days. Recommendation is to recheck urine culture to monitor resolution. UTI prevention will need to be enforced. Patient with anemia as noted above. At discharge patient will continue with iron supplementation 325 mg 1 pill twice daily. Recommendation is to recheck CBC in 2-4 weeks to monitor progress. Patient has dementia. Patient will continue with Exelon patch daily. Patient will need a follow up with neurology to monitor her care. Patient has arthritis. She takes gabapentin. Patient will continue with gabapentin section mg 1 pill twice daily. As recommended above no nonsteroidal anti-inflammatory use is recommended. Patient may take Tylenol as needed. Patient has underlying chronic renal disease up with nephrology as an outpatient further monitor. Recommendation to recheck BMP in 1-2 weeks to monitor progress. Future medications will need to be renally dosed. Patient has atrial fibrillation. This remained stable. As mentioned above patient will need to hold her chronic anti coagulation therapy-Xarelto for 48 hr. After that time this can be restarted. Patient will need to monitor for bleeding, melena, hematemesis. Patient will continue with her rate control medication-sotalol 80 mg 1 pill twice daily. Recommendations for the to follow up with cardiology outpatient further monitor. Vital Signs/Physical Exam: Temp Pulse Resp BP Pulse Ox 97.4 F 75 16 142/85 H 99 07/22/17 08:00 07/22/17 09:00 07/22/17 09:00 07/22/17 09:00 07/22/17 09:00 General: Alert, In no apparent distress, Demented (Moderate dementia) HEENT: Atraumatic Neck: Supple Respiratory: Clear to auscultation bilaterally, Normal air movement Cardiovascular: Normal pulses, Regular rate/rhythm Gastrointestinal: Normal bowel sounds, Soft and benign, Non-distended, No tenderness, No masses, No rebound, No guarding Musculoskeletal: No erythema, No tenderness, No warmth Integumentary: No erythema, No warmth, No cyanosis Neurological: Normal speech, Normal strength at 5/5 x4 extr, Normal tone, Dementia (Moderate dementia) Laboratory Data at Discharge: WBC 7.4 K/uL (4.3-10.9) D 07/21/17 11:15 Hgb 9.6 g/dL (12.0-15.0) L 07/21/17 11:15 Hct 28.6 % (36.0-45.0) L 07/21/17 11:15 Plt Count 227 K/uL (152-406) 07/21/17 11:15 PT 12.4 SECONDS (9.5-12.5) 07/20/17 14:45 INR 1.05 07/20/17 14:45 APTT 25.7 SECONDS (24.3-36.9) 07/20/17 14:45 Sodium 137 mEq/L (135-145) 07/21/17 11:15 Potassium 4.2 mEq/L (3.6-5.0) 07/21/17 11:15 BUN 35 mg/dL (6-20) H 07/21/17 11:15 Creatinine 1.05 mg/dL (0.44-1.00) H 07/21/17 11:15 Glucose 98 mg/dL (65-120) 07/21/17 11:15 Total Bilirubin 0.6 mg/dL (0.3-1.2) 07/21/17 11:15 AST 21 IU/L (10-42) 07/21/17 11:15 ALT 12 IU/L (10-60) 07/21/17 11:15 Alkaline Phosphatase 64 IU/L (42-121) 07/21/17 11:15 Amylase 107 U/L (28-100) H 07/19/17 03:55 Lipase 22 U/L (22-51) 07/19/17 03:55 Home Medications: Magnesium Oxide [Mag 0X*] 400 mg PO BID #60 tab 07/08/15 Gabapentin 1 tab PO BID 03/31/16 Rivaroxaban [Xarelto] 20 mg PO DAILY AT SUPPER #30 tablet 04/13/16 Rivastigmine Patch [Exelon 4.6 mg Patch*] 4.6 mg TD DAILY patch 04/13/16 Sotalol HCl [Betapace*] 80 mg PO BID 6AM 6PM tab 04/13/16 Ferrous Sulfate [Iron] 325 mg PO BID #60 tablet 07/22/17 Levofloxacin [Levaquin*] 250 mg PO DAILY #7 tab 07/22/17 Pantoprazole [Protonix Tab] 40 mg PO BID #60 tab 07/22/17 New Medications: Ferrous Sulfate [Iron] 325 mg PO BID #60 tablet Levofloxacin [Levaquin*] 250 mg PO DAILY #7 tab Pantoprazole [Protonix Tab] 40 mg PO BID #60 tab Patient Discharge Instructions: 1. Patient will need to follow up with her PCP in 1-2 weeks to follow up this hospitalization. 2. Patient presented with upper GI bleed secondary to gastric ulcer. Patient received blood transfusion. Hemoglobin stable. EGD showed gastric ulcer, esophageal ulcers, esophageal stenosis, GERD with hiatal hernia. Biopsy obtained. Biopsy pending at discharge. Patient doing well at discharge. Hemoglobin stable at 9.6. Patient able tolerate her diet. At discharge, recommendation is to avoid nonsteroidal anti-inflammatory use. Recommendation is for the patient will continue with Protonix 40 mg 1 pill twice daily. Patient will need to follow up with GI in 2- 4 weeks to monitor progress. Patient will need repeat EGD in 2-4 weeks for repeat biopsies and monitoring of ulcer. Patient will need a follow up biopsy report. Recommendation is also to hold for chronic anti coagulation therapy- Xarelto for her atrial fibrillation for 48 hours. After 48 hr the medication can be continued. They to monitor for bleeding, melena or hematemesis. Recommendation on no further use of nonsteroidal anti-inflammatories for arthritis pain. 3. Patient also found to have a UTI during her stay. Urine culture was positive for enterobacter. At discharge patient will continue with Levaquin 250 mg 1 pill daily for 7 days. Recommendation is to recheck urine culture to monitor resolution. UTI prevention will need to be enforced. 4. Patient with anemia as noted above. At discharge patient will continue with iron supplementation 325 mg 1 pill twice daily. Recommendation is to recheck CBC in 2-4 weeks to monitor progress. 5. Patient has dementia. Patient will continue with Exelon patch daily. Patient will need a follow up with neurology to monitor her care. 6. Patient has arthritis. She takes gabapentin. Patient will continue with gabapentin section mg 1 pill twice daily. As recommended above no nonsteroidal anti-inflammatory use is recommended. Patient may take Tylenol as needed. 7. Patient has underlying chronic renal disease up with nephrology as an outpatient further monitor. Recommendation to recheck BMP in 1-2 weeks to monitor progress. Future medications will need to be renally dosed. 8. Patient has atrial fibrillation. This remained stable. As mentioned above patient will need to hold her chronic anti coagulation therapy-Xarelto for 48 hr. After that time this can be restarted. Patient will need to monitor for bleeding, melena, hematemesis. Patient will continue with her rate control medication-sotalol 80 mg 1 pill twice daily. Recommendations for the to follow up with cardiology outpatient further monitor. Diet: AHA Activity: Fall precautions Time spent managing pt's care (in minutes): 55
[2017-07-22 13:25] VITALS: BP 137/77
[2017-07-22 13:39] VITALS: O2SAT 99
== END 2017-07-22 13:15 | disposition home or self-care (01) | DRG 378 ==
LOC: ER 03:52 → 2ND 05:45 → ERHOLD 06:34 → 3RD-ICU 11:00
PROVIDERS: ADMIT Family Medicine; ATTEND Family Medicine
PROC: 02HV33Z Insertion of Infusion Device into Superior Vena Cava, Percutaneous Approach (ICD-10-PCS; 2017-07-20)
PROC: 0DB68ZX Excision of Stomach, Via Natural or Artificial Opening Endoscopic, Diagnostic (ICD-10-PCS; principal; 2017-07-21 11:00)
DX: K25.0 Acute gastric ulcer with hemorrhage (principal); D62 Acute posthemorrhagic anemia; N30.00 Acute cystitis without hematuria; K22.10 Ulcer of esophagus without bleeding; K26.4 Chronic or unspecified duodenal ulcer with hemorrhage; F10.10 Alcohol abuse, uncomplicated; E78.5 Hyperlipidemia, unspecified; I48.2 Chronic atrial fibrillation; I10 Essential (primary) hypertension; K22.2 Esophageal obstruction; K44.9 Diaphragmatic hernia without obstruction or gangrene
CPT/HCPCS: 36415; 71045; 80048; 80053; 80076; 81003; 81015; 82150; 82274; 83690; 84132; 85014; 85018; 85025; 85610; 85730; 86850; 86900; 86901; 87077; 87086; 87088; 87186; 88305; 93005; 96361; 96365; 96375; 97163; 99285; C9113; J2270; J2354; J2405; J2550; J3411; J7030; P9016

== ENCOUNTER 2017-12-01 10:04 | Emergency (ER) | payer OTHER, MEDICARE ==
[2017-12-01 10:32] LABS: Absolute Lymphocytes (CBC) 1.4 K/uL (0.7-4.9); Absolute Monocytes 0.8 K/uL (0.1-1.3); Absolute Neutrophil 2.5 K/uL (1.8-8.0); Eosinophils % 3.1 % (0-4.4); Hematocrit 36.7 % (36.0-45.0); Lymphocytes % 28.2 % (15.3-44.8); MCH 30.4 pg (27.0-35.0); MCV 89.9 fL (80-100); MPV 7.6 fL (7.6-11.3); Monocytes % 16.2 % (3.3-12.3); RBC Red Blood Cell Count 4.08 M/uL (3.86-4.86)
[2017-12-01] MEDS ORDERED: NA CHLORIDE 0.9% 500 ML ONE (10:36)
--- NOTE | 2017-12-01 10:46 | RAD REPORT ---
EXAM DESCRIPTION: CT - Head Brain Wo Cont - 12/01/2017 10:39 am CLINICAL HISTORY: near syncope;Dizziness Drowsiness COMPARISON: Head Brain Wo Cont dated 07/11/2016; Head Brain Wo Cont dated 06/10/2016 TECHNIQUE: All CT scans are performed using dose optimization technique as appropriate and may inclu de automated exposure control or mA/KV adjustment according to patient size. FINDINGS: No intracranial hemorrhage, hydrocephalus or extra-axial fluid collection.Moderate general ized brain atrophy is present with moderate periventricular and deep white matter chronic microvascul ar ischemic changes.No areas of brain edema or evidence of midline shift. The paranasal sinuses and mastoids are clear. The calvarium is intact. IMPRESSION: No acute intracranial abnormality.
[2017-12-01 10:52] LABS: BUN Blood Urea Nitrogen 15 mg/dL (7-18); Bicarbonate 30 mmol/L (21-32); Glucose Level 123 mg/dL (74-106); Magnesium 1.8 mg/dL (1.8-2.4); Potassium 4.3 mmol/L (3.5-5.1); Sodium Level 129 mmol/L (136-145); Troponin (Emerg Dept Use Only) < 0.02 ng/mL (0.0-0.045)
[2017-12-01 11:19] LABS: Blood Morphology Comment NOT SEEN (NOT SEEN); Platelet Estimate ADEQ
--- NOTE | 2017-12-01 12:34 | ER ---
Nurse's Notes [facility] Name: Peggy Junior Age: 77 yrs Sex: Female : 1940 Arrival Date: 12/01/2017 Time: 10:05 Bed 7 Private MD: Diagnosis: Dizziness and giddiness;Dehydration;Bradycardia, unspecified Presentation: 12/01 10:05 Presenting complaint: EMS states: DIZZINESS x45 MIN WITH NEAR-SYNCOPE. Transition of bp care: patient was not received from another setting of care. Onset of symptoms was December 01, 2017 at 09:00. Risk Assessment: Do you want to hurt yourself or someone else? Patient reports no desire to harm self or others. Initial Sepsis Screen: Does the patient meet any 2 criteria? No. Patient's initial sepsis screen is negative. Does the patient have a suspected source of infection? No. Patient's initial sepsis screen is negative. Care prior to arrival: Glucose check: 149. 10:05 Method Of Arrival: EMS: [facility] bp 10:05 Acuity: VICTORINO 3 bp Triage Assessment: 10:11 General: Appears in no apparent distress. comfortable, obese, Behavior is calm, bp cooperative, appropriate for age. Pain: Denies pain. EENT: No deficits noted. Neuro: Level of Consciousness is awake, alert, obeys commands, Oriented to person, place, time, situation, Appropriate for age. Cardiovascular: No deficits noted. Respiratory: Airway is patent Respiratory effort is even, unlabored, Respiratory pattern is regular, symmetrical. GI: No signs and/or symptoms were reported involving the gastrointestinal system. : No signs and/or symptoms were reported regarding the genitourinary system. Derm: No deficits noted. Musculoskeletal: Circulation, motion, and sensation intact. Range of motion: intact in all extremities. Historical: - Allergies: 10:11 Aspirin; bp 10:11 Demerol; bp 10:11 -myocins; bp 10:11 OPIOID ANALGESICS; bp 10:11 PENICILLINS; bp 10:11 SALICYLATES; bp - Home Meds: 10:11 Bystolic 5 mg Oral tab 1 tab once daily [Active]; Xarelto 20 mg Oral tab 1 tab once bp daily [Active]; Folbee oral oral [Active]; spironolactone 25 mg Oral tab 1 tab once daily [Active]; pantoprazole 40 mg oral TbEC 1 tab once daily [Active]; gabapentin 600 mg Oral tab twice a day [Active]; magnesium oxide 500 mg Oral tab daily [Active]; - PMHx: 10:11 Alzheimers; Atrial Fib; gastric ulcers; GERD; GI Bleed; Hypertension; tremors; Von bp Willebrand disease; - Immunization history:: Adult Immunizations up to date. - Social history:: Smoking status: unknown. - Ebola Screening: : Patient negative for fever greater than or equal to 101.5 degrees Fahrenheit, and additional compatible Ebola Virus Disease symptoms Patient denies exposure to infectious person Patient denies travel to an Ebola-affected area in the 21 days before illness onset No symptoms or risks identified at this time. - Family history:: not pertinent, not pertinent. Screenin:13 Abuse screen: Denies threats or abuse. Denies injuries from another. Nutritional bp screening: No deficits noted. Fall Risk None identified. No fall in past 12 months (0 pts). Secondary diagnosis (15 points) Alzheimer's, No IV (0 pts). Ambulatory Aid- None/Bed Rest/Nurse Assist (0 pts). Gait- Normal/Bed Rest/Wheelchair (0 pts) Mental Status- Oriented to own ability (0 pts). Total Pitts Fall Scale indicates No Risk (0-24 pts). 10:15 Tuberculosis screening: No symptoms or risk factors identified. bp Assessment: 10:12 General: SEE TRIAGE NOTE. 77YO WF P/W NEAR-SYNCOPE AND HYPOTENSION AT HOME, NO ACUTE bp FINDINGS AT THIS TIME. 10:30 Reassessment: PT TO CT WITH ALGEBRAIST. bp 10:43 Reassessment: PT RETURNED FROM CT. bp 11:27 Reassessment: PT RESTING QUIETLY, SINUS BETTY ON MONITOR, DISPO PENDING. bp 12:21 Reassessment: ALL CURRENT STUDIES COMPLETED, DISPO PENDING. PT REMAINS SINUS BETTY ON bp MONITOR, NO ACUTE S/S. 12:52 Reassessment: PT D/C HOME VIA W/C WITH FAMILY, DX WITH DIZZINESS. bp Vital Signs: 10:06 BP 153 / 58; Pulse 51; Resp 18; Temp 97.7; Pulse Ox 100% on R/A; Weight 81.65 kg; hj Height 5 ft. 6 in. (167.64 cm); 10:28 BP 151 / 60 Supine; Pulse 52; jb1 10:28 BP 152 / 60 Sitting; Pulse 51; jb1 10:28 BP 139 / 59 Standing; Pulse 61; jb1 11:27 BP 146 / 62; Pulse 53; Resp 16; Pulse Ox 99% ; bp 12:21 BP 155 / 69; Pulse 54; Resp 15; Pulse Ox 100% ; bp 12:34 BP 157 / 63; Pulse 54; Resp 15; Pulse Ox 100% ; bp 10:06 Body Mass Index 29.05 (81.65 kg, 167.64 cm) ED Course: 10:05 Patient arrived in ED. hj 10:05 Lenin Cid, RN is Primary Nurse. bp 10:05 Ajay Ramos MD is Attending Physician. rn 10:07 Triage completed. bp 10:11 Arm band placed on. bp 10:14 Patient has correct armband on for positive identification. Placed in gown. Bed in low bp position. Call light in reach. Side rails up X2. 10:20 Initial lab(s) drawn, by me, sent to lab. Inserted saline lock: 22 gauge in right hj antecubital area, using aseptic technique. Blood collected. 10:22 EKG done, by medical technologist generalist. reviewed by Ajay Ramos MD. at1 10:38 CT Head Brain wo Cont In Process Unspecified. EDMS 12:25 Urine collected: clean catch specimen, clear, theo colored. jb1 12:32 Bobby Macdonald MD is Referral Physician. rn 12:34 No provider procedures requiring assistance completed. IV discontinued, intact, bp bleeding controlled, No redness/swelling at site. Pressure dressing applied. Administered Medications: 10:30 Drug: NS 0.9% 500 ml Route: IV; Rate: bolus; Site: right antecubital; bp 11:47 Follow up: IV Status: Completed infusion; IV Intake: 500ml hj Intake: 11:47 IV: 500ml; Total: 500ml. Outcome: 12:33 Discharge ordered by . rn 12:35 Discharged to home via wheelchair, with family. bp 12:35 Condition: stable 12:35 Discharge instructions given to patient, family, Instructed on discharge instructions, follow up and referral plans. medication usage, Demonstrated understanding of instructions, follow-up care, medications. 12:53 Patient left the ED. bp Signatures: Dispatcher [employer] EDMS Ge Raymond jb1 Ajay Ramos MD MD rn Shelby Candelario, billing and accounting staff assistant EKG Tat1 Bakari Shelton, RN RN hj Lenin Cid RN RN bp
--- NOTE | 2017-12-01 12:34 | EDPHYS ---
Physician Documentation [facility] Name: Peggy Junior Age: 77 yrs Sex: Female : 1940 Arrival Date: 12/01/2017 Time: 10:05 Bed 7 Private MD: ED Physician Ajay Ramos HPI: 12/01 10:34 This 77 yrs old Female presents to ER via EMS with complaints of Dizziness. rn 10:34 The patient presents with dizziness, lightheadedness. Onset: The symptoms/episode rn began/occurred just prior to arrival. Modifying factors: The symptoms are alleviated by lying down, the symptoms are aggravated by standing up, changing position. Severity of symptoms: At their worst the symptoms were moderate in the emergency department the symptoms have resolved. The patient has experienced similar episodes in the past. Reports got up today, felt lightheaded, has had many episodes of this in past, feels better now, reports took BP meds this AM, has been admitted for this in past without clear diagnosis. Denies fever/vomiting, + recent mild diarrhea without blood or dark stool. NO abd pain/chest pain/sob. No syncope, sat down and lay down, felt better. NO focal weakness or neurological complaint. . Historical: - Allergies: 10:11 Aspirin; bp 10:11 Demerol; bp 10:11 -myocins; bp 10:11 OPIOID ANALGESICS; bp 10:11 PENICILLINS; bp 10:11 SALICYLATES; bp - Home Meds: 10:11 Bystolic 5 mg Oral tab 1 tab once daily [Active]; Xarelto 20 mg Oral tab 1 tab once bp daily [Active]; Folbee oral oral [Active]; spironolactone 25 mg Oral tab 1 tab once daily [Active]; pantoprazole 40 mg oral TbEC 1 tab once daily [Active]; gabapentin 600 mg Oral tab twice a day [Active]; magnesium oxide 500 mg Oral tab daily [Active]; - PMHx: 10:11 Alzheimers; Atrial Fib; gastric ulcers; GERD; GI Bleed; Hypertension; tremors; Von bp Willebrand disease; - Immunization history:: Adult Immunizations up to date. - Social history:: Smoking status: unknown. - Ebola Screening: : Patient negative for fever greater than or equal to 101.5 degrees Fahrenheit, and additional compatible Ebola Virus Disease symptoms Patient denies exposure to infectious person Patient denies travel to an Ebola-affected area in the 21 days before illness onset No symptoms or risks identified at this time. - Family history:: not pertinent, not pertinent. ROS: 10:34 Constitutional: Negative for fever, chills, and weight loss, Eyes: Negative for injury, rn pain, redness, and discharge, Neck: Negative for injury, pain, and swelling, Cardiovascular: Negative for chest pain, palpitations, and edema, Respiratory: Negative for shortness of breath, cough, wheezing, and pleuritic chest pain, Abdomen/GI: Negative for abdominal pain, nausea, vomiting, and constipation, MS/Extremity: Negative for injury and deformity, Skin: Negative for injury, rash, and discoloration, Neuro: Negative for headache, numbness, tingling, and seizure. Exam: 10:34 Constitutional: This is a well developed, well nourished patient who is awake, alert, rn and in no acute distress. Head/Face: Normocephalic, atraumatic. Eyes: Pupils equal round and reactive to light, extra-ocular motions intact. ENT: MMM, no stridor Cardiovascular: regular rhythm, bradycardic, no murmur Respiratory: Lungs have equal breath sounds bilaterally, clear to auscultation and percussion. No rales, rhonchi or wheezes noted. No increased work of breathing, no retractions or nasal flaring. Abdomen/GI: soft, non-tender Skin: warm, dry MS/ Extremity: Pulses equal, no cyanosis. Neurovascular intact. Full, normal range of motion. Equal circumference. Neuro: Awake and alert, GCS 15, oriented to person, place, time, and situation. Cranial nerves II-XII grossly intact. Motor strength 5/5 in all extremities. Sensory grossly intact. Cerebellar exam normal. Vital Signs: 10:06 BP 153 / 58; Pulse 51; Resp 18; Temp 97.7; Pulse Ox 100% on R/A; Weight 81.65 kg; hj Height 5 ft. 6 in. (167.64 cm); 10:28 BP 151 / 60 Supine; Pulse 52; jb1 10:28 BP 152 / 60 Sitting; Pulse 51; jb1 10:28 BP 139 / 59 Standing; Pulse 61; jb1 11:27 BP 146 / 62; Pulse 53; Resp 16; Pulse Ox 99% ; bp 12:21 BP 155 / 69; Pulse 54; Resp 15; Pulse Ox 100% ; bp 12:34 BP 157 / 63; Pulse 54; Resp 15; Pulse Ox 100% ; bp 10:06 Body Mass Index 29.05 (81.65 kg, 167.64 cm) hj MDM: 10:05 Patient medically screened. rn 12:31 Differential diagnosis: cardiac arrhythmia, generalized weakness, hypovolemia, rn idiopathic dizziness, near-syncope. Data reviewed: vital signs, nurses notes, lab test result(s), EKG, radiologic studies, CT scan, and as a result, I will discharge patient. Counseling: I had a detailed discussion with the patient and/or guardian regarding: the historical points, exam findings, and any diagnostic results supporting the discharge/admit diagnosis, lab results, radiology results, the need for outpatient follow up, to return to the emergency department if symptoms worsen or persist or if there are any questions or concerns that arise at home. Response to treatment: the patient's condition has returned to base line, the patient is now symptom free, patient is well hydrated. and as a result, I will discharge patient. Special discussion: I discussed with the patient/guardian in detail that at this point there is no indication for admission to the hospital. It is understood, however, that if the symptoms persist or worsen the patient needs to return immediately for re-evaluation. Based on the history and exam findings, there is no indication for further emergent testing or inpatient evaluation. I discussed with the patient/guardian the need to see the advertising sales agent for further evaluation of the symptoms. I discussed with the patient/guardian the need to see the primary care provider for further evaluation of the symptoms. ED course: Pt back to baseline with only intervention being fluids, will dc home to f/u with Dr. Macdonald given multiple issues with low BP in AM and now low heart rate, is sinus, and most likely related to her bystolic. Has gotten up to use bathroom, no longer dizzy. BP always on high side here. . 12/01 10:15 Order name: Basic Metabolic Panel; Complete Time: 10:52 rn 12/01 10:15 Order name: CBC with Diff; Complete Time: 11:26 rn 12/01 10:15 Order name: Magnesium; Complete Time: 10:52 rn 12/01 10:15 Order name: Troponin (emerg Dept Use Only); Complete Time: 10:52 rn 12/01 11:19 Order name: Manual Differential; Complete Time: 11:26 EDMS 12/01 12:39 Order name: Urine Dipstick--Ancillary (enter results) eb 12/01 10:06 Order name: EKG; Complete Time: 10:06 hj 12/01 10:15 Order name: CT Head Brain wo Cont; Complete Time: 10:49 rn 12/01 10:15 Order name: Cardiac monitoring; Complete Time: 10:20 rn 12/01 10:15 Order name: EKG - Nurse/Tech; Complete Time: 10:17 rn 12/01 10:15 Order name: IV Saline Lock; Complete Time: 10:21 rn 12/01 10:15 Order name: Labs collected and sent; Complete Time: 10:21 rn 12/01 10:15 Order name: NPO; Complete Time: 10:21 rn 12/01 10:15 Order name: O2 Per Protocol; Complete Time: 10: rn 12/01 10:15 Order name: O2 Sat Monitoring; Complete Time: 10: rn 12/01 10:15 Order name: Urine Dipstick-Ancillary (obtain specimen); Complete Time: 12:21 rn 12/01 10:15 Order name: Orthostatics; Complete Time: 10:29 rn Administered Medications: 10:30 Drug: NS 0.9% 500 ml Route: IV; Rate: bolus; Site: right antecubital; bp 11:47 Follow up: IV Status: Completed infusion; IV Intake: 500ml Disposition: 12/01/17 12:33 Discharged to Home. Impression: Dizziness and giddiness, Dehydration, Bradycardia, unspecified. - Condition is Stable. - Discharge Instructions: Bradycardia, Adult, Dehydration, Adult, Dizziness. - Medication Reconciliation Form, Thank You Letter, Antibiotic Education, Prescription Opioid Use form. - Follow up: Bobby Macdonald MD; When: As needed; Reason: Recheck today's complaints, Re-evaluation by your physician. - Problem is new. - Symptoms have improved. Signatures: Dispatcher [employer] EDMS Ajay Ramos MD MD rn Peltier, Brian, RN RN bp Joaquin, Henry RN hj Corrections: (The following items were deleted from the chart) 12:53 12:33 12/01/2017 12:33 Discharged to Home. Impression: Dizziness and giddiness; bp Dehydration; Bradycardia, unspecified. Condition is Stable. Forms are Medication Reconciliation Form, Thank You Letter, Antibiotic Education, Prescription Opioid Use. Follow up: Bobby Macdonald; When: As needed; Reason: Recheck today's complaints, Re-evaluation by your physician. Problem is new. Symptoms have improved. rn
[2017-12-01 12:56] LABS: Urine Blood NEGATIVE (NEG); Urine Glucose NEGATIVE (NEG); Urine Protein 2+ (NEG); Urine pH 5.5 (5.0-7.0)
[2017-12-01 12:57] VITALS: TEMP 97.7
[2017-12-01 13:00] VITALS: O2SAT 100
[2017-12-01 13:01] VITALS: BP 157/63
--- NOTE | 2017-12-01 16:46 | EKG ---
Test Date: 2017-12-01 Test Time: 10:18:31 Tax Compliance Officer: SAURABH MEASUREMENT RESULTS: Intervals: Rate: 50 MI: 228 QRSD: 104 QT: 468 QTc: 426 [place]: P: 114 MI: 228 QRS: -22 T: -30 INTERPRETIVE STATEMENTS: Sinus bradycardia with 1st degree AV block Minimal voltage criteria for LVH, may be normal variant Inferior infarct, age undetermined Abnormal ECG Compared to ECG 07/21/2017 05:34:31 First degree AV block now present Left ventricular hypertrophy now present Myocardial infarct finding now present Left bundle-branch block no longer present Electronically Signed On 12-01-17 16:44:32 CDT by Bobby Macdonald
== END 2017-12-01 12:53 | disposition home or self-care (01) ==
LOC: ER 10:04
DX: R00.1 Bradycardia, unspecified (principal); E86.0 Dehydration; I10 Essential (primary) hypertension; K21.9 Gastro-esophageal reflux disease without esophagitis; G30.9 Alzheimer's disease, unspecified; F02.80 Dementia in other diseases classified elsewhere, unspecified severity, without behavioral disturbance, psychotic disturbance, mood disturbance, and anxiety; D68.0 Von Willebrand disease; Z88.6 Allergy status to analgesic agent; Z88.0 Allergy status to penicillin; Z88.8 Allergy status to other drugs, medicaments and biological substances; Z86.79 Personal history of other diseases of the circulatory system
CPT/HCPCS: 36415; 70450; 80048; 81003; 83735; 84484; 85025; 93005; 96360; 99284

== ENCOUNTER 2018-01-15 14:32 | Emergency (ER) | payer OTHER, MEDICARE ==
[2018-01-15] MEDS ORDERED: PHENYLEPHRINE 0.5% NOSE 15ML NAS ONE (15:12)
[2018-01-15] MEDS ORDERED: OXYMETAZOLINE HCL 0.05% 15ML NAS ONE (15:15)
--- NOTE | 2018-01-15 15:53 | ER ---
Nurse's Notes [facility] Name: Peggy Junior Age: 77 yrs Sex: Female : 1940 Arrival Date: 01/15/2018 Time: 14:35 Bed 24 Private MD: Gerber Raman B Diagnosis: Epistaxis-resolved Presentation: 01/15 14:41 Presenting complaint: Patient states: For the past couple weeks she has been having la1 nose bleeds about every other day and today is worse than normal. Transition of care: patient was not received from another setting of care. Onset of symptoms was January 15, 2018. Risk Assessment: Do you want to hurt yourself or someone else? Patient reports no desire to harm self or others. Initial Sepsis Screen: Does the patient meet any 2 criteria? No. Patient's initial sepsis screen is negative. Does the patient have a suspected source of infection? No. Patient's initial sepsis screen is negative. Care prior to arrival: None. 14:41 Method Of Arrival: Ambulatory la1 14:41 Acuity: VICTORINO 3 la1 Historical: - Allergies: 14:41 Aspirin; la1 14:41 Demerol; la1 14:41 OPIOID ANALGESICS; la1 14:41 PENICILLINS; la1 14:41 -myocins; la1 14:41 SALICYLATES; la1 - Home Meds: 15:35 Bystolic 5 mg Oral tab 1 tab once daily [Active]; Folbee Oral [Active]; gabapentin 600 mg2 mg Oral tab twice a day [Active]; magnesium oxide 500 mg Oral tab daily [Active]; pantoprazole 40 mg Oral TbEC 1 tab once daily [Active]; spironolactone 25 mg Oral tab 1 tab once daily [Active]; Xarelto 20 mg Oral tab 1 tab once daily [Active]; - PMHx: 14:41 Alzheimers; Atrial Fib; gastric ulcers; GERD; GI Bleed; Hypertension; tremors; Von la1 Willebrand disease; - Immunization history:: Adult Immunizations up to date. - Social history:: Smoking status: Patient/guardian denies using tobacco. - Ebola Screening: : No symptoms or risks identified at this time. Screenin:08 Abuse screen: Denies threats or abuse. Denies injuries from another. Nutritional mg2 screening: No deficits noted. Tuberculosis screening: No symptoms or risk factors identified. Fall Risk None identified. Assessment: 15:09 Pain: Denies pain. mg2 15:33 General: Appears in no apparent distress. uncomfortable, Behavior is calm, cooperative. mg2 Neuro: Level of Consciousness is awake, alert, obeys commands, Oriented to person, place, time, situation. Cardiovascular: Capillary refill < 3 seconds Patient's skin is warm and dry. Respiratory: Airway is patent Respiratory effort is even, unlabored, Respiratory pattern is regular, symmetrical. GI: No signs and/or symptoms were reported involving the gastrointestinal system. : No signs and/or symptoms were reported regarding the genitourinary system. EENT: Nares with bleeding noted on right. Derm: Skin is intact, is healthy with good turgor, Skin is pink, warm \T\ dry. normal. Musculoskeletal: No signs and/or symptoms reported regarding the musculoskeletal system. Vital Signs: 14:43 Pulse 66; Resp 18; Temp 98.4(TE); Pulse Ox 99% on R/A; Weight 77.11 kg; Height 5 ft. 5 la1 in. (165.10 cm); 14:44 BP 187 / 78; la1 15:10 BP 168 / 69; Pulse 66; Resp 18; Pulse Ox 100% on R/A; Pain 0/10; mg2 16:01 BP 160 / 70; Pulse 68; Resp 18; Pulse Ox 100% on R/A; Pain 0/10; mg2 14:43 Body Mass Index 28.29 (77.11 kg, 165.10 cm) la1 ED Course: 14:35 Patient arrived in ED. mr 14:35 Gerber Raman MD is Private Physician. mr 14:42 Triage completed. la1 14:42 Arm band placed on left wrist. la1 14:45 Celso Michaud NP is PHCP. pm1 14:45 Thaddeus Brewer MD is Attending Physician. pm1 14:53 Lucas English RN is Primary Nurse. mg2 15:09 Patient has correct armband on for positive identification. Bed in low position. Call mg2 light in reach. Side rails up X 1. Pulse ox on. NIBP on. Door closed. Noise minimized. Warm blanket given. 15:09 Assist provider with nosebleed control using nasal clamp, Bleeding from right nares. mg2 Set up for procedure. Performed by Celso Michaud NP Bleeding decreased. Patient tolerated well. Patient did not have IV access during this emergency room visit. 16:01 Assist provider with nosebleed control using Afrin sprays, Bleeding from right nares. mg2 Set up for procedure. Performed by Celso Michaud NP Bleeding stopped. Patient tolerated well. Administered Medications: 15:31 Drug: Afrin Drops (0.05 %) 1 sprays Route: Intranasal; Site: right nare; mg2 16:00 Follow up: Response: No adverse reaction; Marked relief of symptoms mg2 Outcome: 15:53 Discharge ordered by MD. pm1 16:02 Discharged to home ambulatory, with family. mg2 16:02 Condition: stable 16:02 Discharge instructions given to patient, family, Instructed on discharge instructions, follow up and referral plans. Demonstrated understanding of instructions, follow-up care. 16:02 Patient left the ED. mg2 Signatures: Tonya Baugh Lee, RN RN la1 Celso Michaud NP ROLLER SKATE ASSEMBLER pm1 Lucas English RN RN mg2
--- NOTE | 2018-01-15 15:53 | EDPHYS ---
Physician Documentation [facility] Name: Peggy Junior Age: 77 yrs Sex: Female : 1940 Arrival Date: 01/15/2018 Time: 14:35 Bed 24 Private MD: Gerber Raman B ED Physician Thaddeus Brewer HPI: 01/15 15:40 This 77 yrs old Female presents to ER via Ambulatory with complaints of Nose pm1 Bleed. 15:40 The patient presents with a nose bleed, occurred while sneezing, causative factors pm1 include: Takes Xarelto for Afib. Onset: The symptoms/episode began/occurred On and off for the past 2 weeks. Today nose bleed is worse. Associated signs and symptoms: Pertinent negatives: cough, ear ache, fever, lightheadedness, shortness of breath, sore throat. Historical: - Allergies: 14:41 Aspirin; la1 14:41 Demerol; la1 14:41 OPIOID ANALGESICS; la1 14:41 PENICILLINS; la1 14:41 -myocins; la1 14:41 SALICYLATES; la1 - Home Meds: 15:35 Bystolic 5 mg Oral tab 1 tab once daily [Active]; Folbee Oral [Active]; gabapentin 600 mg2 mg Oral tab twice a day [Active]; magnesium oxide 500 mg Oral tab daily [Active]; pantoprazole 40 mg Oral TbEC 1 tab once daily [Active]; spironolactone 25 mg Oral tab 1 tab once daily [Active]; Xarelto 20 mg Oral tab 1 tab once daily [Active]; - PMHx: 14:41 Alzheimers; Atrial Fib; gastric ulcers; GERD; GI Bleed; Hypertension; tremors; Von la1 Willebrand disease; - Immunization history:: Adult Immunizations up to date. - Social history:: Smoking status: Patient/guardian denies using tobacco. - Ebola Screening: : No symptoms or risks identified at this time. ROS: 15:40 Constitutional: Negative for fever, chills, and weight loss, Eyes: Negative for injury, pm1 pain, redness, and discharge. 15:40 Neck: Negative for injury, pain, and swelling, Cardiovascular: Negative for chest pain, palpitations, and edema, Respiratory: Negative for shortness of breath, cough, wheezing, and pleuritic chest pain, Abdomen/GI: Negative for abdominal pain, nausea, vomiting, diarrhea, and constipation, Back: Negative for injury and pain, MS/Extremity: Negative for injury and deformity, Skin: Negative for injury, rash, and discoloration, Neuro: Negative for headache, weakness, numbness, tingling, and seizure. 15:40 ENT: Positive for nose bleed, Negative for drainage from ear(s), ear pain, sore throat, difficulty swallowing, difficulty handling secretions. Exam: 15:40 Constitutional: This is a well developed, well nourished patient who is awake, alert, pm1 and in no acute distress. Head/Face: Normocephalic, atraumatic. Eyes: Pupils equal round and reactive to light, extra-ocular motions intact. Lids and lashes normal. Conjunctiva and sclera are non-icteric and not injected. Cornea within normal limits. Periorbital areas with no swelling, redness, or edema. 15:40 Neck: Trachea midline, no thyromegaly or masses palpated, and no cervical lymphadenopathy. Supple, full range of motion without nuchal rigidity, or vertebral point tenderness. No Meningismus. Chest/axilla: Normal chest wall appearance and motion. Nontender with no deformity. No lesions are appreciated. Cardiovascular: Regular rate and rhythm with a normal S1 and S2. No gallops, murmurs, or rubs. No pulse deficits. Respiratory: Lungs have equal breath sounds bilaterally, clear to auscultation and percussion. No rales, rhonchi or wheezes noted. No increased work of breathing, no retractions or nasal flaring. Abdomen/GI: Soft, non-tender, with normal bowel sounds. No distension or tympany. No guarding or rebound. No evidence of tenderness throughout. Back: No spinal tenderness. No costovertebral tenderness. Full range of motion. Skin: Warm, dry with normal turgor. Normal color with no rashes, no lesions, and no evidence of cellulitis. MS/ Extremity: Pulses equal, no cyanosis. Neurovascular intact. Full, normal range of motion. 15:40 ENT: Nose: External nose: no obvious acute abnormality, Nasal septum: is midline, bleeding, is seen from the right nare, and is minimal, no septal hematoma is appreciated, Mouth: is normal, Posterior pharynx: is normal. 15:40 Neuro: Orientation: is normal, Motor: is normal, moves all fours, Sensation: is normal, no obvious gross deficits, Gait: is steady, at a normal pace, without difficulty. Vital Signs: 14:43 Pulse 66; Resp 18; Temp 98.4(TE); Pulse Ox 99% on R/A; Weight 77.11 kg; Height 5 ft. 5 la1 in. (165.10 cm); 14:44 BP 187 / 78; la1 15:10 BP 168 / 69; Pulse 66; Resp 18; Pulse Ox 100% on R/A; Pain 0/10; mg2 16:01 BP 160 / 70; Pulse 68; Resp 18; Pulse Ox 100% on R/A; Pain 0/10; mg2 14:43 Body Mass Index 28.29 (77.11 kg, 165.10 cm) la1 MDM: 14:47 Patient medically screened. pm1 15:50 ED course: nose bleed stopped with afrin and pressure. Nose bleed was anterior at 6 pm1 o'clock in right nare. 15:51 Data reviewed: vital signs. Data interpreted: Pulse oximetry: on room air is 100 %. pm1 Interpretation: normal. Counseling: I had a detailed discussion with the patient and/or guardian regarding: the historical points, exam findings, and any diagnostic results supporting the discharge/admit diagnosis, the need for outpatient follow up, to return to the emergency department if symptoms worsen or persist or if there are any questions or concerns that arise at home. Administered Medications: 15:31 Drug: Afrin Drops (0.05 %) 1 sprays Route: Intranasal; Site: right nare; mg2 16:00 Follow up: Response: No adverse reaction; Marked relief of symptoms mg2 Disposition: 01/16 11:13 Co-signature as Attending Physician, Thaddeus Brewer MD. gs Disposition: 01/15/18 15:53 Discharged to Home. Impression: Epistaxis - resolved. - Condition is Stable. - Discharge Instructions: Nosebleed, Adult. - Medication Reconciliation Form, Thank You Letter form. - Follow up: Emergency Department; When: As needed; Reason: Worsening of condition. Follow up: Private Physician; When: 2 - 3 days; Reason: Recheck today's complaints, Continuance of care, Re-evaluation by your physician. - Problem is new. - Symptoms have improved. Signatures: Claus Castro RN RN la1 Celso Michaud NP [employer] ENGINEERING CONSULTANT pm1 Thaddeus Brewer MD MD Lucas English, RN RN mg2 Corrections: (The following items were deleted from the chart) 01/15 16:02 15:53 01/15/2018 15:53 Discharged to Home. Impression: Epistaxis - resolved. Condition mg2 is Stable. Forms are Medication Reconciliation Form, Thank You Letter, Antibiotic Education, Prescription Opioid Use. Follow up: Emergency Department; When: As needed; Reason: Worsening of condition. Follow up: Private Physician; When: 2 - 3 days; Reason: Recheck today's complaints, Continuance of care, Re-evaluation by your physician. Problem is new. Symptoms have improved. pm1
[2018-01-15 16:11] VITALS: TEMP 98.4
[2018-01-15 16:13] VITALS: O2SAT 100
[2018-01-15 16:15] VITALS: BP 160/70
== END 2018-01-15 16:02 | disposition home or self-care (01) ==
LOC: ER 14:32
DX: R04.0 Epistaxis (principal); I48.91 Unspecified atrial fibrillation; D68.0 Von Willebrand disease; I10 Essential (primary) hypertension; K21.9 Gastro-esophageal reflux disease without esophagitis; G30.9 Alzheimer's disease, unspecified; F02.80 Dementia in other diseases classified elsewhere, unspecified severity, without behavioral disturbance, psychotic disturbance, mood disturbance, and anxiety; Z79.01 Long term (current) use of anticoagulants; Z79.899 Other long term (current) drug therapy
CPT/HCPCS: 99283

== ENCOUNTER 2018-01-15 19:48 | Observation (INO) | payer OTHER, MEDICARE ==
[2018-01-15] MEDS ORDERED: PHENYLEPHRINE 0.5% NOSE 15ML NAS ONE (21:38)
[2018-01-15 21:53] LABS: Urine Blood 3+ (NEG); Urine Glucose NEGATIVE (NEG); Urine Protein 2+ (NEG)
[2018-01-15] MEDS ORDERED: CEFTRIAXONE/SWI 1gm 1 GM/10 ML SYR ONE (21:55)
--- NOTE | 2018-01-15 22:04 | RAD REPORT ---
EXAM DESCRIPTION: RAD - Chest Single View - 01/15/2018 9:58 pm CLINICAL HISTORY: PAIN Chest pain. COMPARISON: Chest Single View dated 07/21/2017; Chest Single View dated 07/20/2017; Chest Single View dated 08/07/2016; Chest Single View dated 06/10/2016 FINDINGS: Portable technique limits examination quality. The lungs are grossly clear. The heart is normal in size. No displaced fractures. IMPRESSION: No acute intrathoracic process suspected.
[2018-01-15 22:09] LABS: Absolute Lymphocytes (CBC) 1.6 K/uL (0.7-4.9); Absolute Monocytes 0.7 K/uL (0.1-1.3); Absolute Neutrophil 5.2 K/uL (1.8-8.0); Basophils % 0.9 % (0-1.3); Eosinophils % 1.7 % (0-4.4); Hematocrit 34.4 % (36.0-45.0); Lymphocytes % 20.6 % (15.3-44.8); MCH 31.2 pg (27.0-35.0); MCV 91.5 fL (80-100); Monocytes % 9.2 % (3.3-12.3); RBC Red Blood Cell Count 3.76 M/uL (3.86-4.86)
[2018-01-15 22:14] LABS: Protime INR 1.74
[2018-01-15 22:28] LABS: BUN Blood Urea Nitrogen 12 mg/dL (7-18); Bicarbonate 25 mmol/L (21-32); Glucose Level 81 mg/dL (74-106); Potassium 4.7 mmol/L (3.5-5.1); Sodium Level 124 mmol/L (136-145)
[2018-01-15 22:29] LABS: ALT/SGPT 14 U/L (12-78); AST/SGOT 19 U/L (15-37); Albumin 3.4 g/dL (3.4-5.0); Alkaline Phosphatase 115 U/L (45-117); Bilirubin Direct 0.2 mg/dL (0-0.2); Bilirubin Total 0.6 mg/dL (0.2-1.0); Magnesium 1.6 mg/dL (1.8-2.4); NT PRO-BNP 4323 pg/mL (<450); Protein, Total 7.2 g/dL (6.4-8.2); Troponin I < 0.02 ng/mL (0.0-0.045)
[2018-01-15] MEDS ORDERED: MAGNESIUM SULFATE 1 gm IVPB 1 GM/100 ML BAG IV ONE (22:59)
--- NOTE | 2018-01-15 23:18 | EDPHYS ---
Physician Documentation [facility] Name: Peggy Junior Age: 77 yrs Sex: Female : 1940 Arrival Date: 01/15/2018 Time: 19:49 Bed 7 Private MD: Gerber Raman B ED Physician Walter Aguilar HPI: 01/15 21:34 This 77 yrs old Female presents to ER via Ambulatory with complaints of Nose dana Bleed. 21:34 The patient presents with a nose bleed, that is apparently anterior. Onset: The dana symptoms/episode began/occurred 1 day(s) ago. Modifying factors: The symptoms are alleviated by nothing. the symptoms are aggravated by nothing. Associated signs and symptoms: The patient has no apparent associated signs or symptoms. Severity of symptoms: At their worst the symptoms were. The patient has not experienced similar symptoms in the past. Historical: - Allergies: 20:16 Aspirin; ak1 20:16 Demerol; ak1 20:16 OPIOID ANALGESICS; ak1 20:16 -myocins; ak1 20:16 SALICYLATES; ak1 20:16 PENICILLINS; ak1 - Home Meds: 20:16 Bystolic 5 mg Oral tab 1 tab once daily [Active]; Folbee Oral [Active]; gabapentin 600 ak1 mg Oral tab twice a day [Active]; magnesium oxide 500 mg Oral tab daily [Active]; pantoprazole 40 mg Oral TbEC 1 tab once daily [Active]; spironolactone 25 mg Oral tab 1 tab once daily [Active]; Xarelto 20 mg Oral tab 1 tab once daily [Active]; - PMHx: 20:16 Alzheimers; Atrial Fib; gastric ulcers; GERD; GI Bleed; Hypertension; tremors; Von ak1 Willebrand disease; - Immunization history:: Adult Immunizations unknown. - Social history:: Smoking status: Patient/guardian denies using tobacco. - Ebola Screening: : No symptoms or risks identified at this time. - Family history:: not pertinent. ROS: 21:34 Constitutional: Negative for fever, chills, and weight loss, Eyes: Negative for injury, dana pain, redness, and discharge, Neck: Negative for injury, pain, and swelling, Cardiovascular: Negative for chest pain, palpitations, and edema, Respiratory: Negative for shortness of breath, cough, wheezing, and pleuritic chest pain, Abdomen/GI: Negative for abdominal pain, nausea, vomiting, diarrhea, and constipation, Back: Negative for injury and pain, : Negative for injury, bleeding, discharge, and swelling, MS/Extremity: Negative for injury and deformity, Skin: Negative for injury, rash, and discoloration, Neuro: Negative for headache, weakness, numbness, tingling, and seizure. 21:34 ENT: Positive for nose bleed. Exam: 21:34 Constitutional: This is a well developed, well nourished patient who is awake, alert, dana and in no acute distress. Head/Face: Normocephalic, atraumatic. Eyes: Pupils equal round and reactive to light, extra-ocular motions intact. Lids and lashes normal. Conjunctiva and sclera are non-icteric and not injected. Cornea within normal limits. Periorbital areas with no swelling, redness, or edema. Neck: Trachea midline, no thyromegaly or masses palpated, and no cervical lymphadenopathy. Supple, full range of motion without nuchal rigidity, or vertebral point tenderness. No Meningismus. Chest/axilla: Normal chest wall appearance and motion. Nontender with no deformity. No lesions are appreciated. Cardiovascular: Regular rate and rhythm with a normal S1 and S2. No gallops, murmurs, or rubs. Normal PMI, no JVD. No pulse deficits. Respiratory: Lungs have equal breath sounds bilaterally, clear to auscultation and percussion. No rales, rhonchi or wheezes noted. No increased work of breathing, no retractions or nasal flaring. Abdomen/GI: Soft, non-tender, with normal bowel sounds. No distension or tympany. No guarding or rebound. No evidence of tenderness throughout. Back: No spinal tenderness. No costovertebral tenderness. Full range of motion. Skin: Warm, dry with normal turgor. Normal color with no rashes, no lesions, and no evidence of cellulitis. MS/ Extremity: Pulses equal, no cyanosis. Neurovascular intact. Full, normal range of motion. Neuro: Awake and alert, GCS 15, oriented to person, place, time, and situation. Cranial nerves II-XII grossly intact. Motor strength 5/5 in all extremities. Sensory grossly intact. Cerebellar exam normal. Normal gait. Psych: Awake, alert, with orientation to person, place and time. Behavior, mood, and affect are within normal limits. 21:34 ENT: Nose: bleeding, clotted blood, in right nare. Vital Signs: 20:16 BP 181 / 75; Pulse 63; Resp 18; Temp 98.1(O); Pulse Ox 100% on R/A; Weight 81.65 kg [facility] (R); Height 5 ft. 7 in. (170.18 cm) (R); Pain 0/10; 21:02 BP 173 / 79; Pulse 62; Resp 18; Temp 98.1; Pulse Ox 100% on R/A; Pain 0/10; ak1 23:57 BP 182 / 84; Pulse 64; Resp 18; Temp 98.1; Pulse Ox 100% on R/A; Pain 0/10; [facility] 01/16 00:51 BP 183 / 82; Pulse 66; Resp 18; Pulse Ox 99% ; ea 01/15 20:16 Body Mass Index 28.19 (81.65 kg, 170.18 cm) [facility] MDM: 01/15 20:22 Patient medically screened. [facility] 01/16 07:08 Data reviewed: vital signs, nurses notes, lab test result(s), EKG, radiologic studies. [facility] 01/15 21:19 Order name: Basic Metabolic Panel [facility] 01/15 21:19 Order name: CBC with Diff; Complete Time: 22:44 [facility] 01/15 21:19 Order name: LFT's; Complete Time: 22:44 [facility] 01/15 21:19 Order name: Magnesium; Complete Time: 22:44 [facility] 01/15 21:19 Order name: PT-INR; Complete Time: 22:44 [facility] 01/15 21:19 Order name: Basic Metabolic Panel; Complete Time: 22:44 [facility] 01/15 21:47 Order name: Urine Dipstick--Ancillary (enter results); Complete Time: 22:44 [facility] 01/15 22:06 Order name: Troponin I; Complete Time: 22:44 [facility] 01/15 22:06 Order name: NT PRO-BNP; Complete Time: 22:44 [facility] 01/15 22:46 Order name: Osmolality, Serum [facility] 01/15 22:46 Order name: Urine Osmolality [facility] 01/15 22:46 Order name: Urine Sodium Random [facility] 01/15 21:19 Order name: XRAY Chest (1 view); Complete Time: 22:44 [facility] 01/15 21:19 Order name: EKG; Complete Time: 21:20 [facility] 01/15 21:19 Order name: Cardiac monitoring; Complete Time: 21:51 [facility] 01/15 21:19 Order name: EKG - Nurse/Tech; Complete Time: 21:32 [facility] 01/15 21:19 Order name: IV Saline Lock; Complete Time: 22:02 [facility] 01/15 21:19 Order name: Labs collected and sent; Complete Time: 22:02 [facility] 01/15 21:19 Order name: O2 Per Protocol; Complete Time: 21:19 [facility] 01/15 21:19 Order name: O2 Sat Monitoring; Complete Time: 21:19 [facility] 01/15 22:56 Order name: CONS Physician Consult [facility] 01/16 00:34 Order name: Osmolality, Serum [facility] 01/16 00:34 Order name: Osmolality, Urine EDMS Administered Medications: 01/15 21:52 Drug: Luther-Synephrine Iva 0.5 % 2 sprays {Note: placed at bedside for provider use.} [facility] Route: Intranasal; Site: both nares; 22:01 Drug: Rocephin - (cefTRIAXone) 1 grams Route: IVPB; Infused Over: 30 mins; Site: right ea antecubital; 22:48 Follow up: Response: No adverse reaction; IV Status: Completed infusion ea 22:58 Drug: Magnesium Sulfate 1 grams Route: IVPB; Infused Over: 1 hrs; Site: right ea antecubital; 01/16 00:15 Follow up: Response: No adverse reaction; IV Status: Completed infusion ea Disposition: 01/15/18 22:49 Hospitalization ordered by Comfort Tobar for Observation. Preliminary diagnosis are Weakness, Essential (primary) hypertension, Epistaxis, Hypo-osmolality and hyponatremia. - Bed requested for Telemetry/MedSurg (observation). - Status is Observation. ea - Condition is Stable. - Problem is new. - Symptoms have improved. UTI on Admission? No Signatures: Dispatcher [employer] EDKalpana Youngblood RN RN kl Anderson, Corey, MD MD cha Krenek, Amber, RN RN [facility] Mavis Mathur RN RN ea Corrections: (The following items were deleted from the chart) 01/15 22:05 21:20 PROBNP+C.LAB.BRZ ordered. [facility] 22:05 21:20 TROPONIN (EMERG DEPT USE ONLY)+C.LAB.BRZ ordered. [facility] 01/16 00:25 01/15 22:49 Hospitalization Ordered by Comfort Tobar MD for Observation. Preliminary kl diagnosis is Weakness; Essential (primary) hypertension; Epistaxis; Hypo-osmolality and hyponatremia. Bed requested for Telemetry/MedSurg (observation). Status is Observation. Condition is Stable. Problem is new. Symptoms have improved. UTI on Admission? No. dana 01/16 00:52 00:25 01/15/2018 22:49 Hospitalization Ordered by Comfort Tobar MD for Observation. ea Preliminary diagnosis is Weakness; Essential (primary) hypertension; Epistaxis; Hypo-osmolality and hyponatremia. Bed requested for Telemetry/MedSurg (observation). Status is Observation. Condition is Stable. Problem is new. Symptoms have improved. UTI on Admission? No. kl
--- NOTE | 2018-01-15 23:18 | ER ---
Nurse's Notes [facility] Name: Peggy Junior Age: 77 yrs Sex: Female : 1940 Arrival Date: 01/15/2018 Time: 19:49 Bed 7 Private MD: Gerber Raman B Diagnosis: Weakness;Essential (primary) hypertension;Epistaxis;Hypo-osmolality and hyponatremia Presentation: 01/15 20:13 Presenting complaint: Patient states: nose bleeding started at 1930. pt seen in ER ak1 today given nasal spray for dry membranes. Transition of care: patient was not received from another setting of care. Onset of symptoms was January 15, 2018. Risk Assessment: Do you want to hurt yourself or someone else? Patient reports no desire to harm self or others. Initial Sepsis Screen: Does the patient meet any 2 criteria? No. Patient's initial sepsis screen is negative. Does the patient have a suspected source of infection? No. Patient's initial sepsis screen is negative. Note pt stated she had a scab inside her nose earlier today and blew her nose and the bleeding started the first time. Care prior to arrival: None. 20:13 Method Of Arrival: Ambulatory ak1 20:13 Acuity: VICTORINO 3 ak1 Triage Assessment: 20:16 General: Appears in no apparent distress. Behavior is calm, cooperative. Pain: Denies ak1 pain. EENT: Reports nose bleeding. Neuro: No deficits noted. Cardiovascular: No deficits noted. Respiratory: No deficits noted. GI: No signs and/or symptoms were reported involving the gastrointestinal system. : No signs and/or symptoms were reported regarding the genitourinary system. Derm: No signs and/or symptoms reported regarding the dermatologic system. Musculoskeletal: No signs and/or symptoms reported regarding the musculoskeletal system. Historical: - Allergies: 20:16 Aspirin; ak1 20:16 Demerol; ak1 20:16 OPIOID ANALGESICS; ak1 20:16 -myocins; ak1 20:16 SALICYLATES; ak1 20:16 PENICILLINS; ak1 - Home Meds: 20:16 Bystolic 5 mg Oral tab 1 tab once daily [Active]; Folbee Oral [Active]; gabapentin 600 ak1 mg Oral tab twice a day [Active]; magnesium oxide 500 mg Oral tab daily [Active]; pantoprazole 40 mg Oral TbEC 1 tab once daily [Active]; spironolactone 25 mg Oral tab 1 tab once daily [Active]; Xarelto 20 mg Oral tab 1 tab once daily [Active]; - PMHx: 20:16 Alzheimers; Atrial Fib; gastric ulcers; GERD; GI Bleed; Hypertension; tremors; Von ak1 Willebrand disease; - Immunization history:: Adult Immunizations unknown. - Social history:: Smoking status: Patient/guardian denies using tobacco. - Ebola Screening: : No symptoms or risks identified at this time. - Family history:: not pertinent. Screenin:02 Abuse screen: Denies threats or abuse. Denies injuries from another. Nutritional ak1 screening: No deficits noted. Tuberculosis screening: No symptoms or risk factors identified. Fall Risk None identified. Assessment: 21:01 Reassessment: Patient appears in no apparent distress at this time. No changes from ak1 previously documented assessment. pt ambulating to restroom with walker, no bleeding noted at this time or during triage. pt with nasal clamp in place. 21:51 Reassessment: nose tray at bedside for provider use. ak1 22:00 Reassessment: No changes from previously documented assessment. Patient and/or family ea updated on plan of care and expected duration. Pain level reassessed. 23:00 Reassessment: Patient and/or family updated on plan of care and expected duration. Pain ea level reassessed. Patient is alert, oriented x 3, equal unlabored respirations, skin warm/dry/pink. 01/16 00:49 Reassessment: Patient and/or family updated on plan of care and expected duration. Pain ea level reassessed. Patient is alert, oriented x 3, equal unlabored respirations, skin warm/dry/pink. Report given to receiving nurse on second floor. Vital Signs: 01/15 20:16 BP 181 / 75; Pulse 63; Resp 18; Temp 98.1(O); Pulse Ox 100% on R/A; Weight 81.65 kg ak1 (R); Height 5 ft. 7 in. (170.18 cm) (R); Pain 0/10; 21:02 BP 173 / 79; Pulse 62; Resp 18; Temp 98.1; Pulse Ox 100% on R/A; Pain 0/10; ak1 23:57 BP 182 / 84; Pulse 64; Resp 18; Temp 98.1; Pulse Ox 100% on R/A; Pain 0/10; ak1 01/16 00:51 BP 183 / 82; Pulse 66; Resp 18; Pulse Ox 99% ; ea 01/15 20:16 Body Mass Index 28.19 (81.65 kg, 170.18 cm) ak1 ED Course: 01/15 19:49 Patient arrived in ED. al2 19:50 Gerber Raman MD is Private Physician. al2 20:13 Leonor Madden, AILYN is Primary Nurse. ak1 20:15 Triage completed. ak1 20:16 Arm band placed on Patient placed in an exam room, on a stretcher, on pulse oximetry, ak1 Patient notified of wait time. 20:22 Walter Aguilar MD is Attending Physician. [facility] 20:29 Call light in reach. Side rails up X 1. Side rails up X2. Warm blanket given. Pulse ox jp3 on. NIBP on. 21:50 Inserted saline lock: 20 gauge in right antecubital area, using aseptic technique. ea Blood collected. 21:53 X-ray completed. Portable x-ray completed in exam room. Patient tolerated procedure ka well. 21:55 XRAY Chest (1 view) In Process Unspecified. EDMS 22:47 Comfort Tobar MD is Hospitalizing Provider. [facility] 22:57 No provider procedures requiring assistance completed. Patient admitted, IV remains in ak1 place. Administered Medications: 21:52 Drug: Luther-Synephrine [place] 0.5 % 2 sprays {Note: placed at bedside for provider use.} ak1 Route: Intranasal; Site: both nares; 22:01 Drug: Rocephin - (cefTRIAXone) 1 grams Route: IVPB; Infused Over: 30 mins; Site: right ea antecubital; 22:48 Follow up: Response: No adverse reaction; IV Status: Completed infusion ea 22:58 Drug: Magnesium Sulfate 1 grams Route: IVPB; Infused Over: 1 hrs; Site: right ea antecubital; 01/16 00:15 Follow up: Response: No adverse reaction; IV Status: Completed infusion ea Outcome: 01/15 20:18 Condition: good ak1 22:49 Decision to Hospitalize by Provider. dana 22:58 Instructed on the need for admit. ak1 01/16 00:34 Admitted to Med/surg accompanied by tech, family with patient, via wheelchair, room ak1 230, with chart, Report called to gene 00:52 Patient left the ED. [facility] Signatures: Dispatcher [employer] EDWalter Dewitt MD MD cha Krenek, Amber, RN RN ak1 Cate Llamas Elena, RN RN ea Love, Angelica al2 Pisarski, Jacob jp3 Corrections: (The following items were deleted from the chart) 01/15 21:39 20:13 Acuity: VICTORINO 4 ak1 ak1
--- NOTE | 2018-01-16 00:01 | P.HP ---
Certification for Inpatient Patient admitted to: Observation With expected LOS: <2 Midnights Practitioner: I am a practitioner with admitting privileges, knowledge of patient current condition, hospital course, and medical plan of care. Services: Services provided to patient in accordance with Admission requirements found in Title 42 Section 412.3 of the Code of Federal Regulations Patient History Date of Service: 01/15/18 Reason for admission: epistaxis History of Present Illness: Ms Junior is a 77 years old woman with history of HTN, Alzheimer's Dementia, Chronic A.Fib anticoagulated with Xarelto, who start with nose bleeding this afternoon, spontaneously, the patient has been with nose congestion last week. No history of trauma. She denied any fever or chills. The patient came to ER, had Afrin spry, bleeding stopped and was discharged home. A couple of hours later, she started bleeding again and came back to ER for further treatment. Lab work shows normal WBC count, Hgb 11.7, possible about her baseline. Allergies meperidine [From Demerol] Allergy (Unverified 06/05/16 20:11) Unknown Penicillins Allergy (Unverified 07/19/17 12:24) Unknown salicylates Allergy (Verified 03/31/16 20:26) Rash aspirin Adverse Reaction (Verified 03/31/16 20:26) bleeding -myocins Allergy (Intermediate, Uncoded 03/31/16 20:26) Itching OPIOID ANAL Allergy (Uncoded 08/07/16 18:56) Unknown OPIOID ANALG Allergy (Uncoded 07/24/16 22:10) Unknown OPIOID ANALGES Allergy (Uncoded 06/05/16 20:11) Unknown OPIOID ANALGESI Allergy (Uncoded 07/11/16 12:30) Unknown Home medications list reviewed: Yes Home Medications: Magnesium Oxide [Mag 0X*] 400 mg PO BID #60 tab 07/08/15 Gabapentin 1 tab PO BID 03/31/16 Rivaroxaban [Xarelto] 20 mg PO DAILY AT SUPPER #30 tablet 04/13/16 Rivastigmine Patch [Exelon 4.6 mg Patch*] 4.6 mg TD DAILY patch 04/13/16 Sotalol HCl [Betapace*] 80 mg PO BID 6AM 6PM tab 04/13/16 Ferrous Sulfate [Iron] 325 mg PO BID #60 tablet 05/25/18 Pantoprazole [Protonix Tab] 40 mg PO BID #60 tab 07/22/17 levoFLOXacin [Levaquin*] 250 mg PO DAILY #7 tab 07/22/17 - Past Medical/Surgical History Diabetic: No -: HTN -: A-fib -: Arthritis -: gastric ulcer with perforation -: Syncope -: last week in [facility]dx w/C-diff & Salmonella -: GERD -: Syncope -: L knee sx 2010 -: Perforated Peptic ulcer sx-2012 - Family History Mother -: Heart disease Notes: thyroid disease Brother -: Hypertension, Cancer - Social History Smoking Status: Never smoker Alcohol use: Yes CD- Drugs: No Caffeine use: Yes Place of Residence: Home Review of Systems 10-point ROS is otherwise unremarkable Physical Examination - Physical Exam General: Alert, In no apparent distress, Demented, Confused HEENT: Atraumatic, Other (right nostril anterior bleeding noted.), EOMI, Sclerae nonicteric Neck: Supple, 2+ carotid pulse no bruit, No LAD, Without JVD or thyroid abnormality Respiratory: Clear to auscultation bilaterally, Normal air movement Cardiovascular: Normal S1 S2, No gallops Gastrointestinal: Normal bowel sounds, No tenderness Musculoskeletal: No tenderness Integumentary: No rashes Neurological: Normal speech, Normal strength at 5/5 x4 extr, Normal tone, Normal affect Lymphatics: No axilla or inguinal lymphadenopathy - Studies Laboratory Data (last 24 hrs) 01/15/18 21:55: PT 20.6 H, INR 1.74 01/15/18 21:55: WBC 7.7, Hgb 11.7 L, Hct 34.4 L, Plt Count 367 01/15/18 21:55: Sodium 124 L, Potassium 4.7, BUN 12, Creatinine 1.10, Glucose 81 , Magnesium 1.6 L, Total Bilirubin 0.6, AST 19, ALT 14, Alkaline Phosphatase 115 , Troponin I < 0.02 Assessment and Plan - Problems (Diagnosis) (1) Epistaxis Current Visit: Yes Status: Acute (2) Hyponatremia Current Visit: Yes Status: Acute (3) Atrial fibrillation Current Visit: No Status: Chronic Qualifiers: Atrial fibrillation type: paroxysmal Qualified Code(s): I48.0 - Paroxysmal atrial fibrillation (4) HTN (hypertension) Onset Date: 06/14/16 Current Visit: No Status: Chronic Qualifiers: Hypertension type: essential hypertension Qualified Code(s): I10 - Essential (primary) hypertension - Plan The patient will be admitted to the hospital due to epistaxis. Already stopped with nasal balloon catheter. Consult Dr Cain. She was also found to be hyponatremic, possible volume depletion, will tray IV fluids. - Advance Directives Does patient have a Living Will: No Does patient have a Durable POA for Healthcare: Yes - Code Status/Comfort Care Code Status Assessed: Yes Code Status: Full Code
[2018-01-16] MEDS ORDERED: ACETAMINOPHEN 500 MG TAB PO PRN (00:49)
[2018-01-16] MEDS ORDERED: ONDANSETRON 4 MG/2 ML VIAL IV PRN (00:49)
[2018-01-16 01:06] VITALS: BMI 30.9
[2018-01-16] MEDS: NA CHLORIDE 0.9% 1,000 ML IV SCH ×4 (02:16→23:06)
[2018-01-16 02:42] LABS: Urine Appearance CLEAR; Urine Bilirubin NEGATIVE (NEG); Urine Blood TRACE (NEG); Urine Color YELLOW; Urine Glucose NEGATIVE (NEG); Urine Protein 2+ (NEG); Urine Specific Gravity <=1.005 (1.005-1.030); Urine Urobilinogen 0.2 mg/dL (0.2-1.0)
[2018-01-16 03:27] LABS: Urine Microscopic Reflex ORDER UMIC
[2018-01-16] MEDS: HYDRALAZINE HCL 20 MG/ML VIAL IV PRN ×3 (03:55→22:45)
[2018-01-16 06:06] LABS: Urine Bacteria <20 /HPF (<20); Urine Culture Reflex Order NOT NEEDED; Urine RBC NONE SEEN /HPF (NONE SEEN)
[2018-01-16 06:38] LABS: Absolute Lymphocytes (CBC) 1.3 K/uL (0.7-4.9); Absolute Monocytes 0.8 K/uL (0.1-1.3); Absolute Neutrophil 5.3 K/uL (1.8-8.0); Basophils % 0.8 % (0-1.3); Eosinophils % 1.1 % (0-4.4); Hematocrit 31.8 % (36.0-45.0); Lymphocytes % 17.3 % (15.3-44.8); MCH 31.7 pg (27.0-35.0); MCV 91.3 fL (80-100); MPV 7.3 fL (7.6-11.3); Monocytes % 10.3 % (3.3-12.3); RBC Red Blood Cell Count 3.49 M/uL (3.86-4.86)
[2018-01-16 06:46] LABS: Potassium 4.2 mmol/L (3.5-5.1)
--- NOTE | 2018-01-16 07:04 | EKG ---
Test Date: 2018-01-15 Test Time: 21:22:02 Telecommunications Linesworker: KENNETH MEASUREMENT RESULTS: Intervals: Rate: 62 [place]: QRSD: 112 QT: 438 QTc: 444 [place]: P: [place]: QRS: 0 T: 16 INTERPRETIVE STATEMENTS: Sinus rhythm Intraventricular conduction delay Abnormal ECG Compared to ECG 12/01/2017 10:18:31 Sinus bradycardia no longer present First degree AV block no longer present Left ventricular hypertrophy no longer present Myocardial infarct finding no longer present Electronically Signed On 01-16-18 07:04:10 MACHINE ADJUSTER by Kennedy Herrera
--- NOTE | 2018-01-16 12:41 | P.CNS ---
Date of Consult: 01/16/18 Notified by nurse, Joao, of consult. Right rhino rocket placed by ER. No active bleeding. Typically I leave packing in place for 48-72 hours to allow better coagulation/stabilization of clot prior to removal. Will plan to see patient Tues afternoon for packing removal. Please contact Dr. Cain if any active bleeding prior to that. Thank you.
--- NOTE | 2018-01-16 13:53 | P.PN ---
Subjective Date of Service: 01/16/18 Chief Complaint: epistaxis Patient seen and examined at bedside. No family at bedside. Chart reviewed and Case discussed with nursing staff. No active bleeding noted at the time my exam. Patient denies any new concerns or complaints. Denies any other active bleeding at this time, no dizziness, chest pain, shortness of breath or lightheadedness. Seems to have intermittent bouts of confusion, though she does have a history of Alzheimer's dementia and this may be baseline Review of Systems As noted Physical Examination - Vital Signs Temperature: 97.7 F Blood Pressure: 157/77 Pulse: 85 Respirations: 16 Pulse Ox (%): 95 - Physical Exam General: Alert, In no apparent distress, Oriented x3 HEENT: Atraumatic, PERRLA, Other (Rhino dressing noted in right nostril. No active bleeding), EOMI Neck: Supple, JVD not distended Respiratory: Clear to auscultation bilaterally, Normal air movement Cardiovascular: Regular rate/rhythm, Normal S1 S2 Gastrointestinal: Normal bowel sounds, No tenderness Musculoskeletal: No tenderness Integumentary: No rashes Neurological: Normal speech, Normal tone, Normal affect Lymphatics: No axilla or inguinal lymphadenopathy - Studies Laboratory Data (last 24 hrs) 01/15/18 21:55: PT 20.6 H, INR 1.74 01/15/18 21:55: WBC 7.7, Hgb 11.7 L, Hct 34.4 L, Plt Count 367 01/15/18 21:55: Sodium 124 L, Potassium 4.7, BUN 12, Creatinine 1.10, Glucose 81 , Magnesium 1.6 L, Total Bilirubin 0.6, AST 19, ALT 14, Alkaline Phosphatase 115 , Troponin I < 0.02 Assessment And Plan - Plan This is a 77-year-old female with: Epistaxis ENT, Dr. Moore consulted. Recommendations appreciated. Patient with rhino rocket dressing in right nostril, placed by ER. No evidence of active bleeding at this time. Plan is for the dressing to be removed tomorrow afternoon. Hypernatremia Atrial fibrillation Anticoagulated with Xarelto Stable otherwise Hypertension Elevated blood pressure noted. Restart home medications of pindolol and spironolactone. Will continue to monitor and adjust medications as needed Alzheimer Dementia, chronic Has intermittent bouts of confusion, the seems to be at baseline. Will continue to monitor. She is not on any home medications for her dementia DVT prophylaxis: Hold at this time GI prophylaxis: On Protonix. Diet: Heart healthy Disposition: Pending symptomatic improvement and nasal packing removal with ENT.
[2018-01-16] MEDS: GABAPENTIN 300 MG CAP PO SCH (20:48)
[2018-01-16] MEDS: PINDOLOL 10 MG PO SCH (21:00)
[2018-01-17] MEDS: NA CHLORIDE 0.9% 1,000 ML IV SCH ×4 (05:57→23:08)
[2018-01-17] MEDS: SPIRONOLACTONE 25 MG TABLET PO SCH (09:00)
[2018-01-17] MEDS: GABAPENTIN 300 MG CAP PO SCH ×2 (09:00→23:07)
[2018-01-17] MEDS: MAGNESIUM 500 MG PO SCH (09:00)
[2018-01-17] MEDS: PANTOPRAZOLE 40MG TABLET PO SCH (09:00)
[2018-01-17] MEDS: PINDOLOL 10 MG PO SCH ×2 (09:00→21:00)
--- NOTE | 2018-01-17 14:03 | P.PN ---
Subjective Date of Service: 01/17/18 Chief Complaint: epistaxis Patient seen and examined at bedside. No family at bedside. Chart reviewed and Case discussed with nursing staff. No active bleeding noted at the time my exam. Patient denies any new concerns or complaints. Denies any other active bleeding at this time, no dizziness, chest pain, shortness of breath or lightheadedness. Seems to have intermittent bouts of confusion, though she does have a history of Alzheimer's dementia and this may be baseline Review of Systems as noted Physical Examination - Vital Signs Temperature: 97.3 F Blood Pressure: 170/77 Pulse: 77 Respirations: 18 Pulse Ox (%): 95 - Physical Exam General: Alert, In no apparent distress, Confused (Intermittently) HEENT: Atraumatic, PERRLA, Other (Packing noted in nose, no active bleeding at this time), EOMI Neck: Supple, JVD not distended Respiratory: Clear to auscultation bilaterally, Normal air movement Cardiovascular: Regular rate/rhythm, Normal S1 S2 Gastrointestinal: Normal bowel sounds, No tenderness Musculoskeletal: No tenderness Integumentary: No rashes Neurological: Normal speech, Normal tone, Normal affect Lymphatics: No axilla or inguinal lymphadenopathy Assessment And Plan - Plan This is a 77-year-old female with: Epistaxis ENT, Dr. Cain consulted. Recommendations appreciated. Patient with rhino rocket dressing in right nostril, placed by ER. No evidence of active bleeding at this time. Plan is for the dressing to be removed this afternoon. May be able to be discharged home after that Atrial fibrillation Anticoagulated with Xarelto Stable otherwise Hypertension Elevated blood pressure noted. Restart home medications of pindolol and spironolactone. Will continue to monitor and adjust medications as needed Alzheimer Dementia, chronic Has intermittent bouts of confusion, the seems to be at baseline. Will continue to monitor. She is not on any home medications for her dementia DVT prophylaxis: Hold at this time GI prophylaxis: On Protonix. Diet: Heart healthy Disposition: Pending symptomatic improvement and nasal packing removal with ENT. Likely discharge after nasal packing removal today Discharge Plan: Home Plan to discharge in: 24 Hours Time Spent Managing PTS Care (In Minutes): 35
[2018-01-18] MEDS: PINDOLOL 10 MG PO SCH (09:00)
[2018-01-18] MEDS: MAGNESIUM 500 MG PO SCH (09:00)
[2018-01-18] MEDS: PANTOPRAZOLE 40MG TABLET PO SCH (09:16)
[2018-01-18] MEDS: SPIRONOLACTONE 25 MG TABLET PO SCH (09:16)
[2018-01-18] MEDS: GABAPENTIN 300 MG CAP PO SCH (09:17)
[2018-01-18 11:32] VITALS: O2SAT 94
--- NOTE | 2018-01-18 11:46 | PN ---
Date of Progress Note: 01/18/2018 Subjective: Over the last 48 hours, the patient has done well and not had any bleeding. She remains moderately hypertensive during her hospital stay, but no other significant medical interventions hav e been done. This morning, the patient is sleeping comfortably. After awakening, she is in no acute distress. She is alert and conversive without significant facial asymmetry. Pupils are equal, roun d, and reactive. Extraocular movements are intact. Her right naris contains a Rhino Rocket taped to the right cheek. Her oral cavity is unremarkable. The Rhino Rocket is deflated using a syringe and is carefully removed from the nasal cavity and disposed of. The bilateral nasal cavity is then exam ined with a headlight. There is no evidence of blood or clot within the anterior nasal cavity. The septum appears clean. Inferior and middle turbinates appear unremarkable. There is no significant c lot. Assessment: Epistaxis, status post Rhino Rocket removal without recurrence of bleeding. Plan: The patient can be discharged once cleared by the medical team. She is instructed to use sali ne nasal spray 3 to 4 times a day over the next 2 weeks. She is also instructed in nasal precautions including no nose blowing or heavy lifting, and if she needs to sneeze, she should do so with her mo uth open. She expresses understanding regarding the instruction. She can follow up with me on an as -needed basis. NANCY Voice ID: [id number] Report ID: [id number]
[2018-01-18 15:52] VITALS: BP 140/87; TEMP 97.1
--- NOTE | 2018-01-18 15:57 | P.DS ---
Admission Date: 01/15/18 Discharge Date: 01/18/18 Disposition: ROUTINE DISCHARGE Discharge Condition: GOOD Reason for Admission: epistaxis Consultations: ENT, Dr. Cain Procedures: Rhino pocket insertion and removal Brief History of Present Illness: Ms Junior is a 77 years old woman with history of HTN, Alzheimer's Dementia, Chronic A.Fib anticoagulated with Xarelto, who start with nose bleeding this afternoon, spontaneously, the patient has been with nose congestion last week. No history of trauma. She denied any fever or chills. The patient came to ER, had Afrin spry, bleeding stopped and was discharged home. A couple of hours later, she started bleeding again and came back to ER for further treatment. Lab work shows normal WBC count, Hgb 11.7, possible about her baseline. Hospital Course: Epistaxis ENT, Dr. Cain was consulted. Patient with rhino rocket dressing in right nostril, placed by ER. No evidence of active bleeding at this time. Rhino rocket dressing removed by ENT. No active bleeding/clot noted. Patient remained stable without any further bleeding. She was discharged home with instructions to use saline nasal spray 2 4 times a day over the next 2 weeks. She was also instructed on no nosebleed or heavy lifting for the next 2 weeks. She verbalized understanding of the instructions. She will follow up with Dr. Cain, ENT in 2 weeks. Atrial fibrillation Anticoagulated with Xarelto Stable throughout the hospitalization. No medication changes made Hypertension Elevated blood pressure noted. Stabilized after restarting home medications. No medication changes at the time of discharge. Alzheimer Dementia, chronic Has intermittent bouts of confusion, the seems to be at baseline. Vital Signs/Physical Exam: Temp Pulse Resp BP Pulse Ox 97.1 F 72 20 140/87 99 01/18/18 12:00 01/18/18 12:00 01/18/18 12:00 01/18/18 12:00 01/18/18 12:00 General: Alert, In no apparent distress, Oriented x3 HEENT: Atraumatic, PERRLA, Other (Nasal packing removed, no bleeding noted), EOMI Neck: Supple, JVD not distended Respiratory: Clear to auscultation bilaterally, Normal air movement Cardiovascular: Regular rate/rhythm, Normal S1 S2 Gastrointestinal: Normal bowel sounds, No tenderness Musculoskeletal: No tenderness Integumentary: No rashes Neurological: Normal speech, Normal tone, Normal affect Lymphatics: No axilla or inguinal lymphadenopathy Laboratory Data at Discharge: WBC 7.5 K/uL (4.3-10.9) 01/16/18 05:58 Hgb 11.1 g/dL (12.0-15.0) L 01/16/18 05:58 Hct 31.8 % (36.0-45.0) L 01/16/18 05:58 Plt Count 356 K/uL (152-406) 01/16/18 05:58 PT 20.6 SECONDS (9.5-12.5) H 01/15/18 21:55 INR 1.74 01/15/18 21:55 Sodium 124 mmol/L (136-145) L 01/16/18 05:58 Potassium 4.2 mmol/L (3.5-5.1) 01/16/18 05:58 BUN 13 mg/dL (7-18) 01/16/18 05:58 Creatinine 1.00 mg/dL (0.55-1.3) 01/16/18 05:58 Glucose 87 mg/dL (74-106) 01/16/18 05:58 Magnesium 1.6 mg/dL (1.8-2.4) L 01/15/18 21:55 Total Bilirubin 0.6 mg/dL (0.2-1.0) 01/15/18 21:55 AST 19 U/L (15-37) 01/15/18 21:55 ALT 14 U/L (12-78) 01/15/18 21:55 Alkaline Phosphatase 115 U/L (45-117) 01/15/18 21:55 Troponin I < 0.02 ng/mL (0.0-0.045) 01/15/18 21:55 Home Medications: Folic Acid/Vit B Complex and C [Folbee Plus Tablet] 5 mg PO DAILY 01/16/18 Gabapentin [Neurontin*] 600 mg PO BID 01/16/18 Magnesium [Magnesium Gluconate] 500 mg PO DAILY 01/16/18 Pantoprazole Sodium [Protonix] 40 mg PO DAILY 01/16/18 Pindolol 10 mg PO BID 01/16/18 Rivaroxaban [Xarelto*] 20 mg PO DAILY 01/16/18 Spironolactone [Aldactone*] 25 mg PO DAILY 01/16/18 Patient Discharge Instructions: Please follow up with Dr. Moreno, ENT in 2 weeks. Make sure to not blow your nose for the next 2 weeks. Diet: Regular Activity: Ad chacha Followup: Codi Cain MD [ACTIVE - CAN ADMIT] - 1-2 Weeks (Call for appointment.) Physician Review: Patient Assessed, Agree with Above Assessment and Plan Time spent managing pt's care (in minutes): 55
== END 2018-01-18 12:54 | disposition home or self-care (01) ==
LOC: ER 19:48 → ERHOLD 22:51 → 2ND 01-16 00:42
PROVIDERS: ADMIT Internal Medicine; ATTEND Internal Medicine
DX: R04.0 Epistaxis (principal); E87.1 Hypo-osmolality and hyponatremia; G30.9 Alzheimer's disease, unspecified; F02.80 Dementia in other diseases classified elsewhere, unspecified severity, without behavioral disturbance, psychotic disturbance, mood disturbance, and anxiety; I48.2 Chronic atrial fibrillation; I10 Essential (primary) hypertension; Z79.01 Long term (current) use of anticoagulants; Z88.6 Allergy status to analgesic agent; Z88.0 Allergy status to penicillin
CPT/HCPCS: 36415; 71045; 80048 ×2; 80076; 83735; 83880; 83930; 83935; 84300; 84484; 85025 ×2; 85610; 93005; 96365; 96367; 99285; J0360 ×3; J0696; J2405; J3475; J7030 ×6; 81003; 81015

== ENCOUNTER 2018-05-29 10:48 | Day surgery (SDC) | payer OTHER, MEDICARE ==
[2018-05-29] MEDS ORDERED: NS 0.9% VIAL 10 ML ONE (11:12)
[2018-05-29] MEDS ORDERED: DUOVISC 1 KIT OPTH ONE (11:12)
[2018-05-29] MEDS ORDERED: BALANCED SALT IRRIG PLAIN 500 ML BTL IRR ONE (11:12)
[2018-05-29] MEDS ORDERED: EPINEPHRINE/PF 1 MG/ML AMP ONE (11:12)
[2018-05-29] MEDS ORDERED: MOXIFLOXACIN HCL 10 DROPS/ML **OR USE OPTH ONE (11:13)
[2018-05-29] MEDS ORDERED: BUPIVACAINE 0.25% PF 10 ML VIAL ONE (11:47)
[2018-05-29] MEDS ORDERED: NA CHLORIDE 0.9% 500 ML ONE (11:47)
[2018-05-29] MEDS ORDERED: TETRACAINE HCL 0.5% 2ML OPTH ONE (11:47)
[2018-05-29] MEDS ORDERED: LIDOCAINE 2% MPF 5 ML VIAL ONE (11:47)
[2018-05-29] MEDS: PHENYLEPHRINE 10% OPTH 5ML ONE ×3 (11:49→12:05)
[2018-05-29] MEDS: CYCLOPENTOLATE 1% OPTH 2 ML ONE ×3 (11:49→12:05)
[2018-05-29] MEDS ORDERED: PROPOFOL 200 MG/20 ML VIAL IV ONE (12:23)
[2018-05-29] MEDS ORDERED: LIDOCAINE 1% MPF 2 ML AMPULE ONE (12:23)
--- NOTE | 2018-05-29 13:20 | P.BOP ---
Preoperative diagnosis: Nuclear sclerotic and posterior subcapsular cataract OS Postoperative diagnosis: Same Primary procedure: Phacoemulsification with IOL OS Estimated blood loss: None Anesthesia: Local (Subtenon's infusion with anesthesia for cataract surgery) Complications: None Implants: [id number] +22.5 Transferred to: Other (Day surgery) Condition: Good
[2018-05-29 14:14] VITALS: BP 163/59; TEMP 97.9; O2SAT 100
--- NOTE | 2018-05-29 23:40 | OP ---
Date of Procedure: 05/29/2018 Surgeon: Meghana Cardona MD Anesthesiologist: Jonathon Grier CRNA and Rafael Ngo MD. Preoperative Diagnoses: Nuclear sclerotic and posterior subcapsular cataract, left eye. Operation Performed: Phacoemulsification with intraocular lens implant, left eye. Anesthesia: Per cataract surgery. Complications: None. Description Of Procedure: In day surgery, the patient was prepped with Betadine and draped. A conju nctival incision was made in the inferior nasal quadrant with Mimi scissors. A sub-Tenon block c onsisting of a 1:1 mixture of 2% Xylocaine and 0.25% bupivacaine was placed through the conjunctival incision with a blunt cannula. A Honan balloon was placed over the eye and the patient was transferr ed to the operating room. In the operating room the patient was prepped and draped in the usual sterile fashion for ophthalmic surgery. A lid speculum was placed in the left eye. Two paracentesis sites were made superiorly and inferiorly in the limbal cornea. Viscoat was placed in the anterior chamber and a crescent blade wa s used to make a corneal groove and tunnel, and a keratome was used to enter the anterior chamber. P rovisc was placed in the anterior chamber and a 360 degree capsulotomy was performed with a cystitome . The lens was hydrodissected with BSS and rotated freely. The lens was removed with a stop and cho p technique. 6.76 phaco CDE was used to remove the lens. Residual cortex was removed with the irrig ation and aspiration. Provisc was placed in the capsular bag. An SN60WF +22.5 lens was placed in th e capsular bag without complications. Irrigation and aspiration were used to remove residual viscoel astic. The paracentesis sites were hydrated with BSS. The wound and paracentesis sites were inspect ed and found to be watertight. Vigamox 0.07 cc was placed intracamerally at the end of the procedure . The eye was irrigated with balanced salt solution. The eye was patched with a soft cotton patch a nd Rg metal shield. The patient was returned to day surgery in good condition. Comments: Residual PSC remained at the end of the surgery. Discharge Instructions: Ms. Junior is discharged to home in good condition and is to follow up with Tyler Cardona in the morning. DREA/DOMINIQUE Voice ID: [id number] Report ID: [id number]
== END 2018-05-29 14:10 | disposition home or self-care (01) ==
LOC: OR 10:48
PROVIDERS: ATTEND Ophthalmology Retina Specialist
PROC: 08RK3JZ Replacement of Left Lens with Synthetic Substitute, Percutaneous Approach (ICD-10-PCS; principal; 2018-05-29 11:00)
DX: H25.12 Age-related nuclear cataract, left eye (principal); H25.042 Posterior subcapsular polar age-related cataract, left eye; I10 Essential (primary) hypertension; K21.9 Gastro-esophageal reflux disease without esophagitis; M19.90 Unspecified osteoarthritis, unspecified site; Z79.899 Other long term (current) drug therapy
CPT/HCPCS: 66984; 36415; 84132; J2704; J0171; J2001

== ENCOUNTER 2018-09-28 08:49 | Emergency (ER) | payer OTHER, MEDICARE ==
[2018-09-28 10:12] LABS: Absolute Lymphocytes (CBC) 1.1 K/uL (0.7-4.9); Hematocrit 39.1 % (36.0-45.0); MPV 8.7 fL (7.6-11.3); RBC Red Blood Cell Count 4.16 M/uL (3.86-4.86)
[2018-09-28 10:14] LABS: Protime INR 1.04
--- NOTE | 2018-09-28 10:24 | RAD REPORT ---
EXAM DESCRIPTION: Vic Single View09/28/2018 10:06 am CLINICAL HISTORY: Chest pain COMPARISON: December 2017 FINDINGS: The lungs appear clear of acute infiltrate. The heart is borderline enlarged IMPRESSION: No acute abnormalities displayed
[2018-09-28] MEDS ORDERED: NA CHLORIDE 0.9% 500 ML ONE (11:30)
[2018-09-28 12:12] LABS: ALT/SGPT 17 U/L (12-78); AST/SGOT 20 U/L (15-37); Albumin 3.4 g/dL (3.4-5.0); Alkaline Phosphatase 114 U/L (45-117); BUN Blood Urea Nitrogen 20 mg/dL (7-18); Bicarbonate 21 mmol/L (21-32); Bilirubin Direct 0.2 mg/dL (0-0.2); Bilirubin Total 0.5 mg/dL (0.2-1.0); Glucose Level 67 mg/dL (74-106); Magnesium 1.7 mg/dL (1.8-2.4); NT PRO-BNP 1434 pg/mL (<450); Potassium 4.3 mmol/L (3.5-5.1); Protein, Total 7.6 g/dL (6.4-8.2); Sodium Level 140 mmol/L (136-145); Troponin (Emerg Dept Use Only) < 0.02 ng/mL (0.0-0.045)
[2018-09-28] MEDS ORDERED: D50W 25 GM/50 ML SYRINGE IV ONE (12:22)
--- NOTE | 2018-09-28 12:42 | EDPHYS ---
Physician Documentation [facility] Name: Peggy Junior Age: 78 yrs Sex: Female : 1940 Arrival Date: 09/28/2018 Time: 09:23 Bed 14 Private MD: ED Physician Candido Trinidad HPI: 09/28 18:48 This 78 yrs old Female presents to ER via EMS with complaints of Weakness. kdr 18:49 The patient states that since she change her magnesium medications, she has had kdr diarrhea and felt generally weak. Her s/s have been intermittent for a few days but became worse this morning. Onset: The symptoms/episode began/occurred suddenly. 18:50 Severity of symptoms: At their worst the symptoms were mild in the emergency department kdr the symptoms are unchanged. The patient has not experienced similar symptoms in the past. The patient has not recently seen a physician. Historical: - Allergies: 08:58 Aspirin; rb1 08:58 -myocins; rb1 08:58 Demerol; rb1 08:58 OPIOID ANALGESICS; rb1 08:58 PENICILLINS; rb1 08:58 SALICYLATES; rb1 - Home Meds: 08:58 Bystolic 5 mg Oral tab 1 tab once daily [Active]; Folbee Oral [Active]; gabapentin 600 rb1 mg Oral tab twice a day [Active]; magnesium oxide 500 mg Oral tab daily [Active]; pantoprazole 40 mg Oral TbEC 1 tab once daily [Active]; spironolactone 25 mg Oral tab 1 tab once daily [Active]; Xarelto 20 mg Oral tab 1 tab once daily [Active]; - PMHx: 08:58 Alzheimers; Atrial Fib; gastric ulcers; GI Bleed; GERD; Hypertension; tremors; Von rb1 Willebrand disease; - PSHx: 08:58 abdominal; rb1 - Immunization history:: Adult Immunizations up to date. - Social history:: Smoking status: Patient/guardian denies using tobacco. - Ebola Screening: : Patient negative for fever greater than or equal to 101.5 degrees Fahrenheit, and additional compatible Ebola Virus Disease symptoms. ROS: 18:50 Constitutional: Negative for fever, chills, and weight loss, Eyes: Negative for injury, kdr pain, redness, and discharge, Neck: Negative for injury, pain, and swelling, Cardiovascular: Negative for chest pain, palpitations, and edema, Respiratory: Negative for shortness of breath, cough, wheezing, and pleuritic chest pain, Back: Negative for injury and pain, : Negative for injury, bleeding, discharge, and swelling, MS/Extremity: Negative for injury and deformity, Skin: Negative for injury, rash, and discoloration, Neuro: Negative for headache, weakness, numbness, tingling, and seizure activity. Psych: Negative for depression, anxiety, suicide ideation, homicidal ideation, and hallucinations, Allergy/Immunology: Negative for hives, rash, and allergies, Endocrine: Negative for neck swelling, polydipsia, polyuria, polyphagia, and marked weight changes, Hematologic/Lymphatic: Negative for swollen nodes, abnormal bleeding, and unusual bruising. 18:50 Abdomen/GI: Positive for abdominal pain, nausea and vomiting, diarrhea, Negative for constipation, abdominal distension, black/tarry stool, rectal pain, rectal bleeding, bowel incontinence. Exam: 18:50 Constitutional: This is a well developed, well nourished patient who is awake, alert, kdr and in no acute distress. Head/Face: Normocephalic, atraumatic. Eyes: Pupils equal round and reactive to light, extra-ocular motions intact. Lids and lashes normal. Conjunctiva and sclera are non-icteric and not injected. Cornea within normal limits. Periorbital areas with no swelling, redness, or edema. Neck: Trachea midline, no thyromegaly or masses palpated, and no cervical lymphadenopathy. Supple, full range of motion without nuchal rigidity, or vertebral point tenderness. No Meningismus. Chest/axilla: Normal chest wall appearance and motion. Nontender with no deformity. No lesions are appreciated. Cardiovascular: Regular rate and rhythm with a normal S1 and S2. No gallops, murmurs, or rubs. Normal PMI, no JVD. No pulse deficits. Respiratory: Lungs have equal breath sounds bilaterally, clear to auscultation and percussion. No rales, rhonchi or wheezes noted. No increased work of breathing, no retractions or nasal flaring. Back: No spinal tenderness. No costovertebral tenderness. Full range of motion. Skin: Warm, dry with normal turgor. Normal color with no rashes, no lesions, and no evidence of cellulitis. MS/ Extremity: Pulses equal, no cyanosis. Neurovascular intact. Full, normal range of motion. Neuro: Awake and alert, GCS 15, oriented to person, place, time, and situation. Cranial nerves II-XII grossly intact. Motor strength 5/5 in all extremities. Sensory grossly intact. Cerebellar exam normal. Normal gait. Psych: Awake, alert, with orientation to person, place and time. Behavior, mood, and affect are within normal limits. 18:50 Abdomen/GI: Inspection: abdomen appears normal, Bowel sounds: active, all quadrants, Palpation: soft, nontender. Vital Signs: 08:58 BP 186 / 68; Pulse 55; Resp 17; Temp 97.6(O); Pulse Ox 99% on R/A; Weight 80.74 kg (R); rb1 Height 5 ft. 6 in. (167.64 cm); Pain 0/10; 09:50 BP 173 / 64; Pulse 58; Resp 16; Temp 97.9(O); Pulse Ox 100% on R/A; Pain 0/10; rb1 10:30 BP 182 / 66; Pulse 53; Resp 17; Temp 97.8(O); Pulse Ox 99% on R/A; Pain 0/10; rb1 11:30 BP 169 / 71; Pulse 56; Resp 16; Temp 97.7(O); Pulse Ox 99% on R/A; Pain 0/10; rb1 12:30 BP 172 / 67; Pulse 55; Resp 19; Temp 97.9; Pulse Ox 97% on R/A; Pain 0/10; rb1 13:30 BP 187 / 65; Pulse 57; Resp 17; Temp 97.9(O); Pulse Ox 100% on R/A; Pain 0/10; rb1 08:58 Body Mass Index 28.73 (80.74 kg, 167.64 cm) rb1 MDM: 12:40 Patient medically screened. kdr 18:50 Data reviewed: vital signs, nurses notes, old medical records, radiologic studies. kdr Counseling: I had a detailed discussion with the patient and/or guardian regarding: the historical points, exam findings, and any diagnostic results supporting the discharge/admit diagnosis, lab results, radiology results, the need for outpatient follow up. 09/28 09:38 Order name: Basic Metabolic Panel; Complete Time: 12:15 kdr 09/28 09:38 Order name: CBC with Diff; Complete Time: 10:39 kdr 09/28 09:38 Order name: LFT's; Complete Time: 12:15 kdr 09/28 09:38 Order name: Magnesium; Complete Time: 12:15 kdr 09/28 09:38 Order name: NT PRO-BNP; Complete Time: 12:15 kdr 09/28 09:38 Order name: PT-INR; Complete Time: 10:39 kdr 09/28 09:38 Order name: Troponin (emerg Dept Use Only); Complete Time: 12:15 kdr 09/28 09:38 Order name: XRAY Chest (1 view); Complete Time: 10:39 kdr 09/28 13:20 Order name: Glucose, Ancillary Testing EDMS 09/28 13:20 Order name: Glucose, Ancillary Testing EDMS 09/28 13:20 Order name: Glucose, Ancillary Testing EDMS 09/28 09:38 Order name: EKG; Complete Time: 09:39 kdr 09/28 09:38 Order name: Cardiac monitoring; Complete Time: 11:29 kdr 09/28 09:38 Order name: EKG - Nurse/Tech; Complete Time: 11:29 kdr 09/28 09:38 Order name: IV Saline Lock; Complete Time: 11:29 kdr 09/28 09:38 Order name: Labs collected and sent; Complete Time: 11:29 kdr 09/28 09:38 Order name: O2 Per Protocol; Complete Time: 11:29 kdr 09/28 09:38 Order name: O2 Sat Monitoring; Complete Time: 11:29 kdr Administered Medications: 11:37 Drug: NS 0.9% 500 ml Volume: 500 ml; Route: IV; Rate: 1 bolus; Site: right forearm; rb1 12:06 Follow up: IV Status: Completed infusion rb1 12:25 Drug: D50W 25 ml Route: IVP; Site: right antecubital; ss 13:15 Follow up: Response: No adverse reaction; Blood sugar is elevated rb1 12:45 Drug: D50W 25 ml Route: IVP; Site: right forearm; rb1 13:15 Follow up: Response: No adverse reaction; Blood sugar is elevated rb1 Point of Care Testing: Blood Glucose: 08:58 Blood Glucose: 70 mg/dL; rb1 Ranges: Critical Glucose Levels:Adult <50 mg/dl or >400 mg/dl <40 mg/dl or >180 mg/dl Disposition: 09/28/18 12:40 Discharged to Home. Impression: Diarrhea, unspecified, Weakness, Hypomagnesemia. - Condition is Stable. - Discharge Instructions: Hypomagnesemia, Fatigue, Diarrhea, Adult, Zklb-[id number]-[id number], Weakness, Iojb-ci-Vvhk, Dehydration, Adult, Bcpl-xq-Muyc. - Prescriptions for Lomotil 2.5- 0.025 mg Oral Tablet - take 1 tablet by ORAL route every 6 hours As needed; 20 tablet. - Medication Reconciliation Form, Thank You Letter form. - Follow up: Private Physician; When: 1 - 2 days; Reason: If symptoms return, Further diagnostic work-up, Recheck today's complaints, Continuance of care, Re-evaluation by your physician. - Problem is new. - Symptoms have improved. Signatures: Dispatcher [employer] EDMS Candido Trinidad MD MD kdr Purvi Shahid RN RN ss Marce Cortez RN RN rb1 Corrections: (The following items were deleted from the chart) 13:52 12:40 09/28/2018 12:40 Discharged to Home. Impression: Diarrhea, unspecified; Weakness; rb1 Hypomagnesemia. Condition is Stable. Forms are Medication Reconciliation Form, Thank You Letter, Antibiotic Education, Prescription Opioid Use. Follow up: Private Physician; When: 1 - 2 days; Reason: If symptoms return, Further diagnostic work-up, Recheck today's complaints, Continuance of care, Re-evaluation by your physician. Problem is new. Symptoms have improved. kdr 14:06 13:52 09/28/2018 12:40 Discharged to Home. Impression: Diarrhea, unspecified; Weakness; ss Hypomagnesemia. Condition is Stable. Discharge Instructions: Hypomagnesemia, Fatigue, Diarrhea, Adult, Xawy-ks-Fxei, Weakness, Vynl-vq-Zpct, Dehydration, Adult, Prew-ls-Yybb. Prescriptions for Lomotil 2.5-0.025 mg Oral Tablet - take 1 tablet by ORAL route every 6 hours As needed; 20 tablet. and Forms are Medication Reconciliation Form, Thank You Letter. Follow up: Private Physician; When: 1 - 2 days; Reason: If symptoms return, Further diagnostic work-up, Recheck today's complaints, Continuance of care, Re-evaluation by your physician. Problem is new. Symptoms have improved. rb1 18:51 18:49 The patient states that since she change her magnesium medications, she has had kdr diarrhea and felt generally weak. kdr
--- NOTE | 2018-09-28 12:42 | ER ---
Nurse's Notes [facility] Name: Peggy Junior Age: 78 yrs Sex: Female : 1940 Arrival Date: 09/28/2018 Time: 09:23 Bed 14 Private MD: Diagnosis: Diarrhea, unspecified;Weakness;Hypomagnesemia Presentation: 09/28 08:58 Presenting complaint: EMS states: Pt. was feeling weak this morning and has diarrhea rb1 and vomiting. Pt. denies falling. BS 48, EMS administered 0 G of D10 IV, BS 118. Pt. has history of hypoglycemia and UTI's, early dementia. Allergy to PENICILLIN. A \T\ O x 3. Pt. cannot remember if she took her morning medications. BP 190's/70-80, P 50's, 97-98% on RA. 08:58 Transition of care: patient was not received from another setting of care. Onset of rb1 symptoms was September 28, 2018. Risk Assessment: Do you want to hurt yourself or someone else? Patient reports no desire to harm self or others. Initial Sepsis Screen: Does the patient meet any 2 criteria? No. Patient's initial sepsis screen is negative. Does the patient have a suspected source of infection? No. Patient's initial sepsis screen is negative. Care prior to arrival: Medication(s) given: 10 g of D10 IV initiated. 20 GA, in the right antecubital area, Glucose check: 48 recheck of BS 118. 08:58 Method Of Arrival: EMS: [facility] rb1 08:58 Acuity: VICTORINO 3 rb1 Triage Assessment: 08:58 General: Appears in no apparent distress. comfortable, Behavior is calm, cooperative. rb1 Pain: Denies pain. Neuro: Level of Consciousness is awake, alert, obeys commands, Oriented to person, place, time, situation, Reports weakness in generalized. Cardiovascular: Capillary refill is > 3 seconds is brisk in bilateral fingers. Respiratory: Airway is patent Respiratory effort is even, unlabored, Respiratory pattern is regular, symmetrical. Respiratory: Reports cough that is productive, thick clear sputum. GI: No signs and/or symptoms were reported involving the gastrointestinal system. : No signs and/or symptoms were reported regarding the genitourinary system. Derm: Skin is pink, warm \T\ dry. Musculoskeletal: Range of motion: intact in all extremities. Historical: - Allergies: 08:58 Aspirin; rb1 08:58 -myocins; rb1 08:58 Demerol; rb1 08:58 OPIOID ANALGESICS; rb1 08:58 PENICILLINS; rb1 08:58 SALICYLATES; rb1 - Home Meds: 08:58 Bystolic 5 mg Oral tab 1 tab once daily [Active]; Folbee Oral [Active]; gabapentin 600 rb1 mg Oral tab twice a day [Active]; magnesium oxide 500 mg Oral tab daily [Active]; pantoprazole 40 mg Oral TbEC 1 tab once daily [Active]; spironolactone 25 mg Oral tab 1 tab once daily [Active]; Xarelto 20 mg Oral tab 1 tab once daily [Active]; - PMHx: 08:58 Alzheimers; Atrial Fib; gastric ulcers; GI Bleed; GERD; Hypertension; tremors; Von rb1 Willebrand disease; - PSHx: 08:58 abdominal; rb1 - Immunization history:: Adult Immunizations up to date. - Social history:: Smoking status: Patient/guardian denies using tobacco. - Ebola Screening: : Patient negative for fever greater than or equal to 101.5 degrees Fahrenheit, and additional compatible Ebola Virus Disease symptoms. Screenin:58 Abuse screen: Denies threats or abuse. Nutritional screening: No deficits noted. rb1 Tuberculosis screening: No symptoms or risk factors identified. Fall Risk Fall in past 12 months (25 points). Secondary diagnosis (15 points) Alzheimer's, dementia, IV access (20 points). Ambulatory Aid- Crutches/Cane/Walker (15 pts). Gait- Impaired (20 pts.). Mental Status- Oriented to own ability (0 pts). Total Pitts Fall Scale indicates High Risk Score (45 or more points). Fall prevention measures have been instituted. Side Rails Up X 2 Placed Close to Nursing Station 1:1 Attendant Assigned Frequent Obs/Assessments Occuring Family Present and informed to notify staff if the need to leave the bedside As available patient and family educated on Fall Prevention Program and Strategies. Assessment: 08:58 General: See triage assessment. rb1 09:40 Reassessment: Patient appears in no apparent distress at this time. No changes from rb1 previously documented assessment. 10:40 Reassessment: Patient appears in no apparent distress at this time. Patient and/or rb1 family updated on plan of care and expected duration. Pain level reassessed. Patient is alert, oriented x 3, equal unlabored respirations, skin warm/dry/pink. Patient denies pain at this time. 11:38 Reassessment: Patient appears in no apparent distress at this time. No changes from rb1 previously documented assessment. at bedside. 12:38 Reassessment: Patient appears in no apparent distress at this time. Patient and/or rb1 family updated on plan of care and expected duration. Pain level reassessed. Patient is alert, oriented x 3, equal unlabored respirations, skin warm/dry/pink. Patient denies pain at this time. 13:30 Reassessment: Patient appears in no apparent distress at this time. No changes from rb1 previously documented assessment. Pt. is watching TV. Vital Signs: 08:58 BP 186 / 68; Pulse 55; Resp 17; Temp 97.6(O); Pulse Ox 99% on R/A; Weight 80.74 kg (R); rb1 Height 5 ft. 6 in. (167.64 cm); Pain 0/10; 09:50 BP 173 / 64; Pulse 58; Resp 16; Temp 97.9(O); Pulse Ox 100% on R/A; Pain 0/10; rb1 10:30 BP 182 / 66; Pulse 53; Resp 17; Temp 97.8(O); Pulse Ox 99% on R/A; Pain 0/10; rb1 11:30 BP 169 / 71; Pulse 56; Resp 16; Temp 97.7(O); Pulse Ox 99% on R/A; Pain 0/10; rb1 12:30 BP 172 / 67; Pulse 55; Resp 19; Temp 97.9; Pulse Ox 97% on R/A; Pain 0/10; rb1 13:30 BP 187 / 65; Pulse 57; Resp 17; Temp 97.9(O); Pulse Ox 100% on R/A; Pain 0/10; rb1 08:58 Body Mass Index 28.73 (80.74 kg, 167.64 cm) rb1 ED Course: 08:58 Maintain EMS IV. Dressing intact. Good blood return noted. Site clean \T\ dry. Gauge \T\ rb 1 site: 20 G right forearm. 08:58 Arm band placed on right wrist. rb1 08:58 Patient has correct armband on for positive identification. Bed in low position. Call rb1 light in reach. Side rails up X2. school bus monitor on. Pulse ox on. NIBP on. Warm blanket given. 09:23 Patient arrived in ED. rb1 09:32 Triage completed. rb1 09:38 Candido Trinidad MD is Attending Physician. kdr 10:01 Marce Cortez, RN is Primary Nurse. rb1 10:04 X-ray completed. Portable x-ray completed in exam room. Patient tolerated procedure jb2 well. 10:06 XRAY Chest (1 view) In Process Unspecified. EDMS 10:28 EKG done, by technical operations manager. reviewed by Candido Trinidad MD. sm3 13:52 No provider procedures requiring assistance completed. IV discontinued, intact, rb1 bleeding controlled, No redness/swelling at site. Pressure dressing applied. 14:05 Primary Nurse role handed off by Marce Cortez, AILYN Administered Medications: 11:37 Drug: NS 0.9% 500 ml Volume: 500 ml; Route: IV; Rate: 1 bolus; Site: right forearm; rb1 12:06 Follow up: IV Status: Completed infusion rb1 12:25 Drug: D50W 25 ml Route: IVP; Site: right antecubital; ss 13:15 Follow up: Response: No adverse reaction; Blood sugar is elevated rb1 12:45 Drug: D50W 25 ml Route: IVP; Site: right forearm; rb1 13:15 Follow up: Response: No adverse reaction; Blood sugar is elevated rb1 Point of Care Testing: Blood Glucose: 08:58 Blood Glucose: 70 mg/dL; rb1 Ranges: Outcome: 12:40 Discharge ordered by . kdr 13:52 Patient left the ED. rb1 13:52 Patient left the ED. ss 13:52 Discharged to home via wheelchair, with family. rb1 13:52 Condition: stable 13:52 Discharge instructions given to patient, Instructed on discharge instructions, follow up and referral plans. medication usage, Demonstrated understanding of instructions, follow-up care, medications, Prescriptions given X 1. Signatures: Dispatcher [employer] EDMA Candido Trinidad MD MD [facility] [address] jb2 Purvi Shahid RN RN Marce Cortez, AILYN RN [facility] Glenda Ramirez sm3 Corrections: (The following items were deleted from the chart) 14:06 14:06 Patient left the ED. ss ss 19:38 13:52 Discharge instructions given to patient, Instructed on discharge instructions, rb1 follow up and referral plans. Demonstrated understanding of instructions, follow-up care, rb1
--- NOTE | 2018-09-28 13:00 | EKG ---
Test Date: 2018-09-28 Test Time: 10:25:23 Exerciser: JAMIE MEASUREMENT RESULTS: Intervals: Rate: 52 DE: 178 QRSD: 120 QT: 494 QTc: 459 [place]: P: 89 DE: 178 QRS: -14 T: 12 INTERPRETIVE STATEMENTS: Sinus bradycardia with fusion complexes Left ventricular hypertrophy with QRS widening Abnormal ECG Compared to ECG 01/15/2018 21:22:02 Fusion complex(es) now present Left ventricular hypertrophy now present Sinus rhythm no longer present Intraventricular conduction delay no longer present Electronically Signed On 09-28-18 12:59:35 CDT by Bobby Macdonald
[2018-09-28 14:15] VITALS: O2SAT 99
[2018-09-28 14:17] VITALS: BP 169/71; TEMP 97.7
== END 2018-09-28 14:06 | disposition home or self-care (01) ==
LOC: ER 08:49
DX: R53.1 Weakness (principal); R19.7 Diarrhea, unspecified; E83.42 Hypomagnesemia; I48.91 Unspecified atrial fibrillation; K21.9 Gastro-esophageal reflux disease without esophagitis; I10 Essential (primary) hypertension; D68.0 Von Willebrand disease; Z88.6 Allergy status to analgesic agent; Z88.5 Allergy status to narcotic agent; Z88.0 Allergy status to penicillin; Z79.01 Long term (current) use of anticoagulants
CPT/HCPCS: 36415; 71045; 80048; 80076; 82962; 83735; 83880; 84484; 85025; 85610; 93005; 99284

== ENCOUNTER 2018-12-20 16:36 | Emergency (ER) | payer OTHER, MEDICARE ==
[2018-12-20 17:33] LABS: Urine Blood NEGATIVE (NEG); Urine Glucose NEGATIVE (NEG); Urine Protein 2+ (NEG); Urine Specific Gravity >1.030 (1.005-1.030)
--- NOTE | 2018-12-20 17:38 | RAD REPORT ---
EXAM DESCRIPTION: RAD - Chest Single View - 12/20/2018 5:25 pm CLINICAL HISTORY: Diarrhea Chest pain. COMPARISON: Chest Single View dated 09/28/2018; Chest Single View dated 01/15/2018; Chest Single View dated 07/21/2017; Chest Single View dated 07/20/2017 FINDINGS: Portable technique limits examination quality. The lungs are grossly clear. The heart is upper limit of normal in size. No displaced fractures. IMPRESSION: No acute intrathoracic process suspected.
[2018-12-20] MEDS ORDERED: NA CHLORIDE 0.9% 500 ML ONE (17:50)
[2018-12-20 17:52] LABS: Urine Bacteria 20-50 /HPF (<20); Urine RBC <5 /HPF (NONE SEEN)
[2018-12-20 17:53] LABS: Urine Culture Reflex Order REFLEXED
[2018-12-20 17:58] LABS: Absolute Lymphocytes (CBC) 1.9 K/uL (0.7-4.9); Basophils % 1.4 % (0-1.3); Hematocrit 37.3 % (36.0-45.0); MPV 7.9 fL (7.6-11.3); RBC Red Blood Cell Count 3.99 M/uL (3.86-4.86)
[2018-12-20 18:04] LABS: Protime INR 0.96
[2018-12-20 18:18] LABS: ALT/SGPT 14 U/L (12-78); AST/SGOT 14 U/L (15-37); Albumin 3.4 g/dL (3.4-5.0); Alkaline Phosphatase 115 U/L (45-117); BUN Blood Urea Nitrogen 17 mg/dL (7-18); Bicarbonate 25 mmol/L (21-32); Bilirubin Direct 0.1 mg/dL (0-0.2); Bilirubin Total 0.5 mg/dL (0.2-1.0); CKMB Creatine Kinase MB < 1.0 ng/mL (0.3-3.6); Creatine Phosphokinase 44 U/L (26-192); Glucose Level 70 mg/dL (74-106); Lipase 121 U/L (73-393); Potassium 4.2 mmol/L (3.5-5.1); Sodium Level 141 mmol/L (136-145); Troponin (Emerg Dept Use Only) < 0.02 ng/mL (0.0-0.045)
--- NOTE | 2018-12-20 19:41 | EDPHYS ---
Physician Documentation [facility] Name: Peggy Junior Age: 78 yrs Sex: Female : 1940 Arrival Date: 12/20/2018 Time: 16:39 Bed 5 Private MD: ED Physician Candido Trinidad HPI: 12/21 09:39 This 78 yrs old Female presents to ER via EMS with complaints of feels poorly kdr and is having diarrhea for the last few days. 09:39 The patient states that for the past week or so, she has been feeling increasingly poor kdr and has also been having frequent diarrhea. She has no other focal c/o. Onset: The symptoms/episode began/occurred gradually, 1 week(s) ago. Severity of symptoms: At their worst the symptoms were mild moderate just prior to arrival, in the emergency department the symptoms are unchanged. The patient has experienced similar episodes in the past, a few times. It is unknown whether or not the patient has recently seen a physician. Historical: - Allergies: 12/20 16:56 Aspirin; jl7 16:56 Demerol; jl7 16:56 -myocins; jl7 16:56 OPIOID ANALGESICS; jl7 16:56 PENICILLINS; jl7 16:56 SALICYLATES; jl7 - Home Meds: 16:56 Folbee Oral [Active]; gabapentin 600 mg Oral tab twice a day [Active]; magnesium oxide jl7 500 mg Oral tab daily [Active]; pantoprazole 40 mg Oral TbEC 1 tab once daily [Active]; iron glycinate,fum-vit C-vit M17-auqlcgqzydavvmyjpqyixf oral oral [Active]; pindolol 10 mg Oral tab 1 tab 2 times per day [Active]; donepezil 10 mg oral tab 1 tab once daily [Active]; Restasis 0.05 % ophthalmic dpet [Active]; - PMHx: 16:56 Alzheimers; gastric ulcers; Atrial Fib; GI Bleed; Hypertension; GERD; tremors; Von jl7 Willebrand disease; - PSHx: 16:56 abdominal; jl7 - Immunization history:: Adult Immunizations up to date. - Social history:: Smoking status: Patient/guardian denies using tobacco. - Ebola Screening: : No symptoms or risks identified at this time. ROS: 12/21 09:39 Constitutional: Negative for fever, chills, and weight loss, Eyes: Negative for injury, kdr pain, redness, and discharge, ENT: Negative for injury, pain, and discharge, Neck: Negative for injury, pain, and swelling, Cardiovascular: Negative for chest pain, palpitations, and edema, Respiratory: Negative for shortness of breath, cough, wheezing, and pleuritic chest pain, Back: Negative for injury and pain, : Negative for injury, bleeding, discharge, and swelling, MS/Extremity: Negative for injury and deformity, Skin: Negative for injury, rash, and discoloration, Neuro: Negative for headache, numbness, tingling, and seizure activity. She has had weakness Psych: Negative for depression, anxiety, suicide ideation, homicidal ideation, and hallucinations, Allergy/Immunology: Negative for hives, rash, and allergies, Endocrine: Negative for neck swelling, polydipsia, polyuria, polyphagia, and marked weight changes, Hematologic/Lymphatic: Negative for swollen nodes, abnormal bleeding, and unusual bruising. 09:39 Abdomen/GI: Positive for diarrhea, abdominal cramps, Negative for abdominal distension, kdr black/tarry stool, rectal pain, rectal bleeding, bowel incontinence. Exam: 09:39 Constitutional: This is a well developed, well nourished patient who is awake, alert, kdr and in no acute distress. Head/Face: Normocephalic, atraumatic. Eyes: Pupils equal round and reactive to light, extra-ocular motions intact. Lids and lashes normal. Conjunctiva and sclera are non-icteric and not injected. Cornea within normal limits. Periorbital areas with no swelling, redness, or edema. Neck: Trachea midline, no thyromegaly or masses palpated, and no cervical lymphadenopathy. Supple, full range of motion without nuchal rigidity, or vertebral point tenderness. No Meningismus. Chest/axilla: Normal chest wall appearance and motion. Nontender with no deformity. No lesions are appreciated. Cardiovascular: Regular rate and rhythm with a normal S1 and S2. No gallops, murmurs, or rubs. Normal PMI, no JVD. No pulse deficits. Respiratory: Lungs have equal breath sounds bilaterally, clear to auscultation and percussion. No rales, rhonchi or wheezes noted. No increased work of breathing, no retractions or nasal flaring. Abdomen/GI: Soft, non-tender, with normal bowel sounds. No distension or tympany. No guarding or rebound. No evidence of tenderness throughout. Back: No spinal tenderness. No costovertebral tenderness. Full range of motion. Skin: Warm, dry with normal turgor. Normal color with no rashes, no lesions, and no evidence of cellulitis. MS/ Extremity: Pulses equal, no cyanosis. Neurovascular intact. Full, normal range of motion. Neuro: Awake and alert, GCS 15, oriented to person, place, time, and situation. Cranial nerves II-XII grossly intact. Motor strength 5/5 in all extremities. Sensory grossly intact. Cerebellar exam normal. Normal gait. Psych: Awake, alert, with orientation to person, place and time. Behavior, mood, and affect are within normal limits. Vital Signs: 12/20 16:56 BP 191 / 74; Pulse 58; Resp 19 S; Temp 98.3(O); Pulse Ox 98% on R/A; jl7 17:49 BP 175 / 68; Pulse 55; Resp 17; Pulse Ox 97% on R/A; mh5 18:55 BP 164 / 63; Pulse 58; Resp 21; Pulse Ox 100% on R/A; mh5 19:20 BP 160 / 65; Pulse 61; Resp 13 S; Temp 97.5(O); Pulse Ox 99% on R/A; Pain 0/10; cc3 20:10 BP 132 / 64; Pulse 63; Resp 15 S; Pulse Ox 99% on R/A; Pain 0/10; cc3 MDM: 19:40 Patient medically screened. tw4 12/21 09:43 Data reviewed: vital signs, nurses notes, lab test result(s), radiologic studies. kdr Counseling: I had a detailed discussion with the patient and/or guardian regarding: the historical points, exam findings, and any diagnostic results supporting the discharge/admit diagnosis, lab results, radiology results, the need for outpatient follow up. 12/20 17:08 Order name: Basic Metabolic Panel kdr 12/20 17:08 Order name: Blood Culture Adult (2) kdr 12/20 17:08 Order name: CBC with Diff; Complete Time: 19:36 kdr 12/20 19:37 Interpretation: Normal except: BASO% 1.4. tw4 12/20 17:08 Order name: Ckmb; Complete Time: 19:36 kdr 12/20 19:37 Interpretation: Within normal limits: CKMB < 1.0. 12/20 17:08 Order name: CPK; Complete Time: 19:36 kdr 12/20 19:37 Interpretation: Within normal limits: CPK 44. 12/20 17:08 Order name: Lactate; Complete Time: 19:36 kdr 12/20 19:37 Interpretation: Within normal limits: LAC 1.2. 12/20 17:08 Order name: LFT's; Complete Time: 19:36 kdr 12/20 19:37 Interpretation: Normal except: AST 14; GLOB 3.6; A/G 0.9. 12/20 17:08 Order name: Lipase; Complete Time: 19:36 kdr 12/20 19:38 Interpretation: Within normal limits: LIP 121. 12/20 17:08 Order name: Procalcitonin; Complete Time: 19:36 kdr 12/20 19:38 Interpretation: Within normal limits: Procalcitonin < 0.05. 12/20 17:08 Order name: Protime (+inr); Complete Time: 19:36 kdr 12/20 19:38 Interpretation: Within normal limits: PT 11.3. 12/20 17:08 Order name: Ptt, Activated; Complete Time: 19:36 kdr 12/20 19:38 Interpretation: Within normal limits: PTT 31.5. 12/20 17:08 Order name: Troponin (emerg Dept Use Only); Complete Time: 19:36 [facility] 12/20 19:38 Interpretation: Within normal limits: TROPED < 0.02. 12/20 17:08 Order name: Urine Microscopic Only; Complete Time: 19:36 kdr 12/20 19:37 Interpretation: Normal except: UBACT 20-50; SQEPI 5-10. 12/20 17:08 Order name: Chest Single View XRAY; Complete Time: 19:36 kdr 12/20 19:38 Interpretation: No acute disease. 12/20 17:08 Order name: Accucheck; Complete Time: 18:31 kdr 12/20 17:08 Order name: Cardiac monitoring; Complete Time: 18:31 kdr 12/20 17:08 Order name: EKG - Nurse/Tech; Complete Time: 18:31 kdr 12/20 17:08 Order name: IV Saline Lock - Large Bore; Complete Time: 17:53 kdr 12/20 17:08 Order name: Labs collected and sent; Complete Time: 17:52 kdr 12/20 17:09 Order name: Basic Metabolic Panel; Complete Time: 19:36 EDMS 12/20 19:37 Interpretation: Normal except: GLUC 70; CRE 1.35; GFR 38. tw4 12/20 17:09 Order name: Blood Culture EDMS 12/20 17:22 Order name: Urine Dipstick--Ancillary (enter results); Complete Time: 19:36 em1 12/20 19:37 Interpretation: USPGR >1.030; UKET 3+; UPROT 2+. tw4 12/20 17:54 Order name: EKG; Complete Time: 17:55 jl7 12/20 17:54 Order name: Urine Culture EDMS 12/20 17:08 Order name: O2 Per Protocol; Complete Time: 17:52 kdr 12/20 17:08 Order name: O2 Sat Monitoring; Complete Time: 17:52 kdr 12/20 17:08 Order name: Urine Dipstick-Ancillary (obtain specimen); Complete Time: 17:21 kdr 12/20 17:19 Order name: Straight Cath - Urine; Complete Time: 17:19 jl Administered Medications: 12/20 18:30 Drug: NS 0.9% 500 ml Route: IV; Rate: bolus; Site: left forearm; jl7 19:15 Follow up: Response: No adverse reaction; IV Status: Completed infusion; IV Intake: cc3 500ml 19:40 Drug: Rocephin - (cefTRIAXone) 1 grams Route: IVPB; Infused Over: 30 mins; Site: left cc3 hand; 20:15 Follow up: Response: No adverse reaction; IV Status: Completed infusion; IV Intake: [id number] Disposition: 12/20/18 19:40 Discharged to Home. Impression: Urinary tract infection, site not specified. - Condition is Stable. - Discharge Instructions: Food Choices to Help Relieve Diarrhea, Adult, Diarrhea, Adult, Urinary Tract Infection, Adult, [id number]. - Prescriptions for Pyridium 200 mg Oral Tablet - take 1 tablet by ORAL route every 8 hours for 3 days; 9 tablet. Zofran 4 mg Oral Tablet - take 1 tablet by ORAL route every 12 hours As needed; 20 tablet. Macrobid 100 mg Oral Capsule - take 1 capsule by ORAL route every 12 hours for 10 days; 20 capsule. Lomotil 2.5- 0.025 mg Oral Tablet - take 1 tablet by ORAL route every 6 hours As needed; 20 tablet. - Medication Reconciliation Form, Thank You Letter, Antibiotic Education, Prescription Opioid Use form. - Follow up: Private Physician; When: Upon discharge from the Emergency Department; Reason: Recheck today's complaints, Continuance of care. - Problem is new. - Symptoms have improved. Signatures: Dispatcher [employer] EDMS Candido Trinidad MD MD kdr Sarah Jackson RN RN jl7 Gonzalo Coffman MD MD tw4 Luisana Miramontes cc3 Corrections: (The following items were deleted from the chart) 20:16 19:40 12/20/2018 19:40 Discharged to Home. Impression: Urinary tract infection, site cc3 not specified. Condition is Stable. Forms are Medication Reconciliation Form, Thank You Letter, Antibiotic Education, Prescription Opioid Use. Follow up: Private Physician; When: Upon discharge from the Emergency Department; Reason: Recheck today's complaints, Continuance of care. Problem is new. Symptoms have improved. tw4
--- NOTE | 2018-12-20 19:41 | ER ---
Nurse's Notes [facility] Name: Peggy Junior Age: 78 yrs Sex: Female : 1940 Arrival Date: 12/20/2018 Time: 16:39 Bed 5 Private MD: Diagnosis: Urinary tract infection, site not specified Presentation: 12/20 16:47 Presenting complaint: EMS states: Diarrhea and UTI symptoms x 1 day. Transition of jl7 care: patient was not received from another setting of care. Onset of symptoms was December 20, 2018. Risk Assessment: Do you want to hurt yourself or someone else? Patient reports no desire to harm self or others. Initial Sepsis Screen: Does the patient meet any 2 criteria? No. Patient's initial sepsis screen is negative. Does the patient have a suspected source of infection? No. Patient's initial sepsis screen is negative. Care prior to arrival: None. 16:47 Method Of Arrival: EMS: [facility] 16:47 Acuity: VICTORINO 3 jl7 Historical: - Allergies: 16:56 Aspirin; jl7 16:56 Demerol; jl7 16:56 -myocins; jl7 16:56 OPIOID ANALGESICS; jl7 16:56 PENICILLINS; jl7 16:56 SALICYLATES; jl7 - Home Meds: 16:56 Folbee Oral [Active]; gabapentin 600 mg Oral tab twice a day [Active]; magnesium oxide jl7 500 mg Oral tab daily [Active]; pantoprazole 40 mg Oral TbEC 1 tab once daily [Active]; iron glycinate,fum-vit C-vit C95-tjjujmbyqqamhctqxrqhhr oral oral [Active]; pindolol 10 mg Oral tab 1 tab 2 times per day [Active]; donepezil 10 mg oral tab 1 tab once daily [Active]; Restasis 0.05 % ophthalmic dpet [Active]; - PMHx: 16:56 Alzheimers; gastric ulcers; Atrial Fib; GI Bleed; Hypertension; GERD; tremors; Von jl7 Willebrand disease; - PSHx: 16:56 abdominal; jl7 - Immunization history:: Adult Immunizations up to date. - Social history:: Smoking status: Patient/guardian denies using tobacco. - Ebola Screening: : No symptoms or risks identified at this time. Screenin:05 Abuse screen: Denies threats or abuse. Denies injuries from another. Nutritional jl7 screening: No deficits noted. Tuberculosis screening: No symptoms or risk factors identified. Fall Risk IV access (20 points). Total Pitts Fall Scale indicates No Risk (0-24 pts). Assessment: 16:45 General: Appears in no apparent distress. uncomfortable, ill, Behavior is calm, jl7 cooperative, appropriate for age. Pain: Denies pain. Neuro: Level of Consciousness is awake, alert, obeys commands, Oriented to person, place, time, situation. Cardiovascular: Heart tones present Patient's skin is warm and dry. Respiratory: Airway is patent Respiratory effort is even, unlabored, Respiratory pattern is regular, symmetrical. GI: Abdomen is round non-distended, Stools are reported to be diarrhea. Bowel sounds present X 4 quads. Reports diarrhea, Patient currently denies nausea, vomiting. : Urine is cloudy, Reports burning with urination. Derm: Skin is dry, Skin is pale, Skin temperature is warm. Musculoskeletal: No signs and/or symptoms reported regarding the musculoskeletal system. 17:45 Reassessment: Patient appears in no apparent distress at this time. No changes from jl7 previously documented assessment. Patient and/or family updated on plan of care and expected duration. Pain level reassessed. Patient is alert, oriented x 3, equal unlabored respirations, skin warm/dry/pink. 18:45 Reassessment: Patient appears in no apparent distress at this time. Patient and/or jl7 family updated on plan of care and expected duration. Pain level reassessed. Patient is alert, oriented x 3, equal unlabored respirations, skin warm/dry/pink. 19:15 Reassessment: Patient appears in no apparent distress at this time. Patient and/or cc3 family updated on plan of care and expected duration. Pain level reassessed. Patient is alert, oriented x 3, equal unlabored respirations, skin warm/dry/pink. Received this female patient from morning shift AILYN Smith as a case of UTI and diarrhea. With IV cannula gauge 22 at the left forearm saline locked. Patient denies pain at this time. General: Appears in no apparent distress. comfortable, Behavior is calm, cooperative, appropriate for age. Pain: Denies pain. Neuro: Level of Consciousness is awake, alert, obeys commands, Oriented to person, place, time, situation, Appropriate for age. Cardiovascular: Denies chest pain, Heart tones S1 S2 present Capillary refill < 3 seconds in bilateral fingers Patient's skin is warm and dry. Respiratory: Airway is patent Respiratory effort is even, unlabored, Respiratory pattern is regular, symmetrical, Breath sounds are clear bilaterally. GI: Abdomen is round non-distended, Bowel sounds present X 4 quads. Abd is soft and non tender X 4 quads. : No signs and/or symptoms were reported regarding the genitourinary system. EENT: No signs and/or symptoms were reported regarding the EENT system. Derm: Skin is intact, is healthy with good turgor, Skin is pink, warm \T\ dry. normal. Musculoskeletal: Circulation, motion, and sensation intact. Range of motion: intact in all extremities. 20:15 Reassessment: Patient appears in no apparent distress at this time. Patient and/or cc3 family updated on plan of care and expected duration. Pain level reassessed. Patient is alert, oriented x 3, equal unlabored respirations, skin warm/dry/pink. Dr. Coffman discharged the patient home with prescriptions given. IV cannula removed and patient left ER vitally stable by wheelchair escorted by me and her . No valuables left in the patient's room. Patient denies pain at this time. Patient states feeling better. Vital Signs: 16:56 BP 191 / 74; Pulse 58; Resp 19 S; Temp 98.3(O); Pulse Ox 98% on R/A; jl7 17:49 BP 175 / 68; Pulse 55; Resp 17; Pulse Ox 97% on R/A; mh5 18:55 BP 164 / 63; Pulse 58; Resp 21; Pulse Ox 100% on R/A; mh5 19:20 BP 160 / 65; Pulse 61; Resp 13 S; Temp 97.5(O); Pulse Ox 99% on R/A; Pain 0/10; cc3 20:10 BP 132 / 64; Pulse 63; Resp 15 S; Pulse Ox 99% on R/A; Pain 0/10; cc3 ED Course: 16:39 Patient arrived in ED. em1 16:44 Candido Trinidad MD is Attending Physician. kdr 16:47 Sarah Jackson RN is Primary Nurse. jl7 16:49 Triage completed. jl7 16:56 Arm band placed on right wrist. jl7 17:19 Straight cath inserted, using sterile technique, 16 Fr. Specimen obtained. Returned jl7 cloudy urine. Patient tolerated well. 17:21 Urine collected: straight cath specimen, clear. mh5 17:22 Patient has correct armband on for positive identification. Placed in gown. Bed in low mh5 position. Call light in reach. Side rails up X2. Adult w/ patient. Warm blanket given. Pulse ox on. NIBP on. 17:25 Chest Single View XRAY In Process Unspecified. EDMS 17:40 Inserted saline lock: 22 gauge in left forearm, using aseptic technique. Blood jl7 collected. 17:40 Initial lab(s) drawn, by me, sent to lab. First set of blood cultures drawn by me. jl7 18:07 EKG done, by marketing technologist. reviewed by Candido Trinidad MD. sm3 20:15 No provider procedures requiring assistance completed. IV discontinued, intact, cc3 bleeding controlled, No redness/swelling at site. Pressure dressing applied. Administered Medications: 18:30 Drug: NS 0.9% 500 ml Route: IV; Rate: bolus; Site: left forearm; jl7 19:15 Follow up: Response: No adverse reaction; IV Status: Completed infusion; IV Intake: cc3 500ml 19:40 Drug: Rocephin - (cefTRIAXone) 1 grams Route: IVPB; Infused Over: 30 mins; Site: left cc3 hand; 20:15 Follow up: Response: No adverse reaction; IV Status: Completed infusion; IV Intake: [id number] Intake: 19:15 IV: 500ml; Total: 500ml. cc3 20:15 IV: 10ml; Total: 510ml. cc3 Outcome: 19:40 Discharge ordered by . tw4 20:15 Discharged to home via wheelchair, with family. cc3 20:15 Condition: stable 20:15 Discharge instructions given to patient, family, Instructed on discharge instructions, follow up and referral plans. medication usage, Demonstrated understanding of instructions, follow-up care, medications, Prescriptions given X 4. 20:16 Patient left the ED. cc3 Signatures: Dispatcher [employer] GEOVANNIOR Candido Trinidad MD MD kdr Martinez, [facility] Yoanna Reese [facility] Sarah Jackson AILYN RN jl7 Gonzalo Coffman MD MD tw4 Glenda Ramirez sm3 Luisana Miramontes cc3
[2018-12-20] MEDS ORDERED: CEFTRIAXONE/SWI 1gm 1 GM/10 ML SYR ONE (19:43)
[2018-12-20 20:47] VITALS: TEMP 98.3
[2018-12-20 20:50] VITALS: BP 164/63; O2SAT 100
--- NOTE | 2018-12-20 22:08 | EKG ---
Test Date: 2018-12-20 Test Time: 18:01:00 Digital Cartographer: JAMIE MEASUREMENT RESULTS: Intervals: Rate: 54 KS: 170 QRSD: 118 QT: 494 QTc: 468 [place]: P: 30 KS: 170 QRS: -26 T: 14 INTERPRETIVE STATEMENTS: Sinus bradycardia with sinus arrhythmia with occasional premature ventricular complexes Left ventricular hypertrophy with QRS widening Abnormal ECG Compared to ECG 09/28/2018 10:25:23 Ventricular premature complex(es) now present Electronically Signed On 12-20-18 22:08:23 CDT by Kennedy Herrera
== END 2018-12-20 20:16 | disposition home or self-care (01) ==
LOC: ER 16:36
DX: N39.0 Urinary tract infection, site not specified (principal); I10 Essential (primary) hypertension; K21.9 Gastro-esophageal reflux disease without esophagitis; Z88.6 Allergy status to analgesic agent; Z88.0 Allergy status to penicillin; Z88.8 Allergy status to other drugs, medicaments and biological substances
CPT/HCPCS: 96365; 96361; 93005; 87040 ×2; 87088; 85025; 80048; 36415; 82550; 85610; 80076; 83605; 85730; 84484; 82553; 83690; 84145; 71045; 51702; 99284; J0696; J7040; 81003; 81015; 87086

== ENCOUNTER 2020-02-08 13:46 | Emergency (ER) | payer OTHER, MEDICARE ==
--- NOTE | 2020-02-08 14:46 | RAD REPORT ---
EXAM DESCRIPTION: RAD - Chest Single View - 02/08/2020 2:31 pm CLINICAL HISTORY: fallCOVID chest pain COMPARISON: November 2018 TECHNIQUE: AP portable chest image was obtained 02/08/2020 2:31 pm . FINDINGS: Lung volumes are low and the patient is rotated. No peripheral mass or consolidation. Heavy Truck Driver gumaro interstitial lung pattern matches comparison. Minimal edema or infiltrate potentially be masked. Heart and vasculature are normal. No measurable pleural effusion and no pneumothorax. No pulmonary co ntusion. Osteopenic changes are suspected. No displaced rib fractures seen. Rib detail is limited on portable examination. No acute aortic findings suspected. IMPRESSION: No pulmonary contusion, pneumothorax or acute chest finding. Chronic interstitial opacification is present which could potentially mask minimal edema or infiltrat e.
[2020-02-08] MEDS ORDERED: FENTANYL CITR 100 MCG/2 ML ONE ×2 (14:56→16:35)
--- NOTE | 2020-02-08 15:00 | RAD REPORT ---
EXAM DESCRIPTION: RAD - Humerus Left - 02/08/2020 2:46 pm CLINICAL HISTORY: Fall, shoulder and arm pain COMPARISON: None. FINDINGS: No fracture is identified. There is no dislocation or periosteal reaction noted. No forei gn body or other soft tissue abnormality. IMPRESSION: Negative left humerus examination.
--- NOTE | 2020-02-08 17:25 | RAD REPORT ---
EXAM DESCRIPTION: CT - CTHCSPWOC - 02/08/2020 4:43 pm CLINICAL HISTORY: fall, head and neck injury COMPARISON: No comparisonsHead C Spine Mpr Wo Con dated 03/30/2016 TECHNIQUE: Axial 5 mm thick images of the head were obtained. Axial 2 mm thick images of the cervic al spine were obtained with sagittal and coronal reconstruction images generated and reviewed. All CT scans are performed using dose optimization technique as appropriate and may include automated exposure control or mA/KV adjustment according to patient size. FINDINGS: No intracranial hemorrhage, mass, edema or acute intracranial finding. No suspicion for ac ken infarction. No cortical edema or sulcal effacement. Moderate atrophy is present. Patient has prom inent ventricles in proportion or slightly enlarged compared to the amount of volume loss. Normal pre ssure hydrocephalus would be a consideration. The ventricular size matches the 2017 study. Physiologi c calcifications are present. Mastoid air cells are clear. Chronic right-sided sphenoid sinus mucosal thickening present. No globe or orbit abnormality seen. Cervical bodies are normal in height. No subluxation changes since prior imaging. Progressive degener ative change at C3-4 since 2017 results in fusion of these vertebral bodies. Degenerative changes at the dens C1 level have progressed. No convincing evidence for dens fracture. There is advanced degene rative disc disease at C4-5, C5-6 and C6-7. No fracture identified. No pathologic bone process. Multi level facet and uncovertebral joint degenerative changes cause foraminal stenosis. Central canal det ail is inherently limited. No paraspinal mass or hematoma. Provided history indicates left scapula area pain from a fall, this a pedro is not imaged on this study. IMPRESSION: Negative CT head examination for acute finding. The enlarged ventricles are questionable for normal pressure hydrocephalus but have not changed since 2017. Advanced cervical spine degenerative change as detailed. No acute finding identifiable.
--- NOTE | 2020-02-08 17:29 | RAD REPORT ---
EXAM DESCRIPTION: CT - Thorax Wo Con - 02/08/2020 4:43 pm CLINICAL HISTORY: back pain, fall, left scapula and shoulder region pain COMPARISON: Thorax Wo Con dated 07/07/2015; CT CHEST ABD PELVIS WO CONT dated 05/09/2015 TECHNIQUE: Axial 5 mm thick images of the chest were obtained without IV contrast. All CT scans are performed using dose optimization technique as appropriate and may include automated exposure control or mA/KV adjustment according to patient size. FINDINGS: Minimal atelectasis changes are present. No pulmonary contusion, pneumothorax or suspiciou s lung parenchymal process. No pleural fluid collection. No abnormal mediastinal or hilar masses or lymphadenopathy seen. No gross aortic or pulmonary artery finding suspected. No pericardial thickening or effusion. Small a moderate size hiatal hernia prese nt. No chest wall mass or abnormal axillary lymphadenopathy. Comminuted left scapular fracture is present. Fracture extends primarily in a sagittal orientation al dung the medial aspect of the scapula. There several small fracture fragments along the main fracture line. No significant distraction or angulation deformity. No dislocation of the humeral head. IMPRESSION: Left scapula fracture is present as detailed in the body of the report. No significant d isplacement along the main fracture line. No rib fracture, pneumothorax, pulmonary contusion or other significant chest finding. Incidental note made of moderate size hiatal hernia and multi stone cholelithiasis.
--- NOTE | 2020-02-08 18:20 | ER ---
Nurse's Notes [facility] Name: Peggy Junior Age: 79 yrs Sex: Female : 1940 Arrival Date: 02/08/2020 Time: 13:47 Bed 17 Private MD: Diagnosis: Fracture of unspecified part of scapula, left shoulder;Fall on same level from slipping, tripping and stumbling Presentation: 02/07 13:47 Chief complaint: Patient states: tripped and fell from standing position. Pt c/o pain aa5 to left scapular area. 13:47 Coronavirus screen: Client denies travel out of the [place] in the last 14 days. At this aa5 time, the client does not indicate any symptoms associated with coronavirus-19. Ebola Screen: Patient negative for fever greater than or equal to 101.5 degrees Fahrenheit, and additional compatible Ebola Virus Disease symptoms. Initial Sepsis Screen: Does the patient meet any 2 criteria? No. Patient's initial sepsis screen is negative. Does the patient have a suspected source of infection? No. Patient's initial sepsis screen is negative. Risk Assessment: Do you want to hurt yourself or someone else? Patient reports no desire to harm self or others. Onset of symptoms was February 08, 2020. 13:47 Method Of Arrival: EMS: [facility] aa5 13:47 Acuity: VICTORINO 3 aa5 Historical: - Allergies: 13:50 Aspirin; aa5 13:50 Demerol; aa5 13:50 -myocins; aa5 13:50 OPIOID ANALGESICS; aa5 13:50 PENICILLINS; aa5 13:50 SALICYLATES; aa5 - Home Meds: 13:50 pantoprazole 40 mg Oral TbEC 1 tab once daily [Active]; pindolol 10 mg Oral tab 1 tab 2 aa5 times per day [Active]; donepezil 10 mg oral tab once daily [Active]; Restasis ophthalmic ophthalmic [Active]; Centrum Silver oral oral [Active]; gabapentin 300 mg oral cap twice a day [Active]; - PMHx: 13:50 Alzheimers; Atrial Fib; gastric ulcers; GERD; GI Bleed; Hypertension; tremors; Von aa5 Willebrand disease; - PSHx: 13:50 abdominal; aa5 - Immunization history:: Adult Immunizations unknown. - Social history:: Smoking status: Patient denies any tobacco usage or history of. Screenin:30 Abuse screen: Denies threats or abuse. Nutritional screening: No deficits noted. aa5 Tuberculosis screening: No symptoms or risk factors identified. 14:32 Fall Risk Fall in past 12 months (25 points). IV access (20 points). Ambulatory Aid- aa5 Crutches/Cane/Walker (15 pts). Total Pitts Fall Scale indicates High Risk Score (45 or more points). Fall prevention measures have been instituted. Side Rails Up X 2 Placed Close to Nursing Station. Assessment: 13:50 General: Appears comfortable, Behavior is calm, cooperative. Pain: Complains of pain in aa5 left scapular area Pain does not radiate. Pain currently is 10 out of 10 on a pain scale. Quality of pain is described as sharp, shooting, Is continuous, Aggravated by increased activity, repositioning. Neuro: Level of Consciousness is awake, alert, obeys commands, Oriented to person, place, time, situation. Cardiovascular: Patient's skin is warm and dry. Respiratory: Airway is patent Respiratory effort is even, unlabored, Respiratory pattern is regular, symmetrical. GI: No signs and/or symptoms were reported involving the gastrointestinal system. : No signs and/or symptoms were reported regarding the genitourinary system. EENT: No signs and/or symptoms were reported regarding the EENT system. Derm: Skin is pink, warm \\T\\ dry. Musculoskeletal: Reports pain in left scapular area. 15:20 Reassessment: Patient is alert, oriented x 3, equal unlabored respirations, skin aa5 warm/dry/pink. Pt cleaned of urinary incontinence, clean brief applied. . 16:20 Reassessment: Patient is alert, oriented x 3, equal unlabored respirations, skin aa5 warm/dry/pink. Patient states symptoms have not improved. PA notified of unchanged pain level. . 16:27 Reassessment: Patient is alert, oriented x 3, equal unlabored respirations, skin aa5 warm/dry/pink. Pt taken to CT via stretcher . 17:00 Reassessment: Patient states feeling better. Patient states symptoms have improved. Pt aa5 cleaned of urinary incontinence, clean brief applied. Pt now resting in bed with eyes closed, respirations even and unlabored.. 18:30 Reassessment: Patient is alert, oriented x 3, equal unlabored respirations, skin aa5 warm/dry/pink. Pt cleaned of urinary incontinence, clean brief applied. . 18:50 Reassessment: Attempted to d/c pt home, upon sitting up in bed pt became clammy and aa5 diaphoretic, pt c/o dizziness and feeling lightheaded. Stayed with pt for 15 minutes w/o improvement of symptoms, pt refused to lay down in bed several times after being encouraged to. Pt now lying down in bed and symptoms improved. PA was notified. . 19:00 Reassessment: Patient is alert, oriented x 3, equal unlabored respirations, skin aa5 warm/dry/pink. Pt reports symptoms have improved. Pt states feeling better. Pt states "My went home to go get me a change of clothes" . 20:15 Reassessment: pt given PO juice, and turkey sandwich tolerating well. sg 20:16 Reassessment: Linh TERESA notified of pt symptoms for hypoglycemia, FSBS of 50 reported sg to Linh PA, order to feed pt juice and tray, pt given juice and turkey sandwich. 20:22 Reassessment: Patient appears in no apparent distress at this time. pt reports feeling sg better, s/s have gone, pt getting dressed at this time. Vital Signs: 13:48 BP 176 / 66; Pulse 74; Resp 16 S; Temp 97.7(O); Pulse Ox 98% on R/A; Pain 10/10; aa5 15:06 BP 168 / 67; Pulse 68; Resp 16 S; Pulse Ox 98% on R/A; aa5 16:26 BP 142 / 80; Pulse 80; Resp 18 S; Pulse Ox 97% on R/A; aa5 18:00 BP 143 / 81; Pulse 84; Resp 16 S; Pulse Ox 97% on R/A; aa5 19:05 BP 154 / 75; Pulse 75; Resp 18 S; Temp 98.0(O); Pulse Ox 98% on R/A; aa5 ED Course: 13:47 Patient arrived in ED. aa5 13:47 Patient has correct armband on for positive identification. Bed in low position. Call aa5 light in reach. Side rails up X2. 13:47 Arm band placed on. aa5 13:50 Walter Barfield PA is PHCP. cp 13:50 Candido Trinidad MD is Attending Physician. cp 13:54 Nubia Whitehead, RN is Primary Nurse. aa5 14:31 XRAY Chest (1 view) In Process Unspecified. EDMS 14:32 Inserted saline lock: 20 gauge in right antecubital area, using aseptic technique. aa5 14:46 XRAY Humerus LEFT In Process Unspecified. EDMS 15:04 Triage completed. aa5 16:44 CT Head C Spine In Process Unspecified. EDMS 16:44 CT Chest Wo Con In Process Unspecified. EDMS 18:19 Vivek Patiño MD is Referral Physician. cp 18:40 No provider procedures requiring assistance completed. IV discontinued, intact, aa5 bleeding controlled, No redness/swelling at site. Pressure dressing applied. 19:05 Report given to Russ Red RN. aa5 Administered Medications: 14:45 Drug: fentaNYL (PF) 25 mcg Route: IVP; Site: right antecubital; aa5 15:00 Follow up: Response: No adverse reaction aa5 16:24 Drug: fentaNYL (PF) 25 mcg Route: IVP; Site: right antecubital; aa5 17:00 Follow up: Response: No adverse reaction; Pain is decreased aa5 Point of Care Testing: Blood Glucose: 20:15 Blood Glucose: 50 mg/dL; sg Ranges: Outcome: 18:20 Discharge ordered by MD. cp 20:46 Patient left the ED. sg Signatures: Dispatcher [employer] [facility] Russ Red RN RN Nubia Whitehead, RN RN aa5 Walter Barfield PA PA cp Corrections: (The following items were deleted from the chart) 16:06 14:30 Fall Risk Fall in past 12 months (25 points). IV access (20 points). Ambulatory aa5 Aid- Crutches/Cane/Walker (15 pts). Total Pitts Fall Scale indicates High Risk Score (45 or more points). Fall prevention measures have been instituted. Side Rails Up X 2 Placed Close to Nursing Station aa5 19:34 16:30 BP 142 / 80; Pulse 80bpm; Resp 18bpm; Spontaneous; Pulse Ox 97% RA; aa5 aa5
--- NOTE | 2020-02-08 18:20 | EDPHYS ---
Physician Documentation [facility] Name: Peggy Junior Age: 79 yrs Sex: Female : 1940 Arrival Date: 02/08/2020 Time: 13:47 Bed 17 Private MD: ED Physician Candido Trinidad HPI: 02/07 14:05 This 79 yrs old Female presents to ER via EMS with complaints of Fall Injury. cp 14:05 Details of fall: The patient fell from an upright position, while standing. cp 14:05 Onset: The symptoms/episode began/occurred just prior to arrival. cp 14:05 Patient c/o pain left upper arm and left scapula from fall. cp Historical: - Allergies: 13:50 Aspirin; aa5 13:50 Demerol; aa5 13:50 -myocins; aa5 13:50 OPIOID ANALGESICS; aa5 13:50 PENICILLINS; aa5 13:50 SALICYLATES; aa5 - Home Meds: 13:50 pantoprazole 40 mg Oral TbEC 1 tab once daily [Active]; pindolol 10 mg Oral tab 1 tab 2 aa5 times per day [Active]; donepezil 10 mg oral tab once daily [Active]; Restasis ophthalmic ophthalmic [Active]; Centrum Silver oral oral [Active]; gabapentin 300 mg oral cap twice a day [Active]; - PMHx: 13:50 Alzheimers; Atrial Fib; gastric ulcers; GERD; GI Bleed; Hypertension; tremors; Von aa5 Willebrand disease; - PSHx: 13:50 abdominal; aa5 - Immunization history:: Adult Immunizations unknown. - Social history:: Smoking status: Patient denies any tobacco usage or history of. ROS: 14:10 Constitutional: Negative for body aches, chills, fever, poor PO intake. cp 14:10 Eyes: Negative for injury, pain, redness, and discharge. cp 14:10 Neck: Negative for stiffness. 14:10 Cardiovascular: Negative for chest pain, edema, palpitations. 14:10 Respiratory: Negative for cough, shortness of breath, wheezing. 14:10 Abdomen/GI: Negative for abdominal pain, nausea, vomiting, and diarrhea. 14:10 MS/extremity: Positive for injury or acute deformity, decreased range of motion, pain, of the left scapular area and left upper arm. 14:10 Neuro: Negative for altered mental status, loss of consciousness, syncope, weakness. 14:10 All other systems are negative. Exam: 14:15 Constitutional: The patient appears in no acute distress, alert, awake, cp non-diaphoretic, non-toxic, well developed, well nourished, uncomfortable. 14:15 Head/Face: Normocephalic, atraumatic. cp 14:15 Eyes: Periorbital structures: appear normal, Conjunctiva: normal, no exudate, no injection, Lids and lashes: appear normal, bilaterally. 14:15 ENT: External ear(s): are unremarkable, Nose: is normal, Posterior pharynx: Airway: no evidence of obstruction, patent. 14:15 Neck: C-spine: C-collar placed in ED. 14:15 Chest/axilla: Inspection: normal, Palpation: is normal, no crepitus, no tenderness. 14:15 Cardiovascular: Rate: normal, Rhythm: regular, Pulses: Pulses are 2+ in right radial artery and left radial artery. 14:15 Respiratory: the patient does not display signs of respiratory distress, Respirations: normal, no use of accessory muscles, no retractions, labored breathing, is not present, Breath sounds: are clear throughout, no decreased breath sounds. 14:15 Abdomen/GI: Inspection: abdomen appears normal, Palpation: abdomen is soft and non-tender, in all quadrants. 14:15 Back: pain, that is severe, of the left scapular area. 14:15 Musculoskeletal/extremity: Extremities: grossly normal except: noted in the left upper arm: pain, ROM: limited passive range of motion due to pain, in the left shoulder. 14:15 Neuro: Orientation: to person, place \T\ time. Mentation: is normal. Vital Signs: 13:48 BP 176 / 66; Pulse 74; Resp 16 S; Temp 97.7(O); Pulse Ox 98% on R/A; Pain 10/10; aa5 15:06 BP 168 / 67; Pulse 68; Resp 16 S; Pulse Ox 98% on R/A; aa5 16:26 BP 142 / 80; Pulse 80; Resp 18 S; Pulse Ox 97% on R/A; aa5 18:00 BP 143 / 81; Pulse 84; Resp 16 S; Pulse Ox 97% on R/A; aa5 19:05 BP 154 / 75; Pulse 75; Resp 18 S; Temp 98.0(O); Pulse Ox 98% on R/A; aa5 MDM: 13:58 Patient medically screened. cp 18:20 Data reviewed: vital signs, nurses notes, radiologic studies, CT scan, plain films, I cp have discussed the patient's presentation/case with the attending Emergency Department Physician; and as a result, I will discharge patient. 18:20 Counseling: I had a detailed discussion with the patient and/or guardian regarding: the cp historical points, exam findings, and any diagnostic results supporting the discharge/admit diagnosis, radiology results, to return to the emergency department if symptoms worsen or persist or if there are any questions or concerns that arise at home. 18:20 Response to treatment: the patient's symptoms have markedly improved after treatment, cp VSS. Pain improved, will discharge to home for continued monitoring. 02/07 20:23 Order name: Glucose, Ancillary Testing EDMS 02/07 13:59 Order name: XRAY Chest (1 view); Complete Time: 17:42 02/07 13:59 Order name: XRAY Humerus LEFT; Complete Time: 17:42 02/07 15:33 Order name: CT Head C Spine; Complete Time: 17:42 02/07 15:33 Order name: CT Chest Wo Con; Complete Time: 17:42 02/07 13:59 Order name: IV; Complete Time: 14:34 02/07 17:45 Order name: Shoulder Immobilizer: left; Complete Time: 18:23 02/07 20:16 Order name: FSBS; Complete Time: 20:16 sg Administered Medications: 14:45 Drug: fentaNYL (PF) 25 mcg Route: IVP; Site: right antecubital; aa5 15:00 Follow up: Response: No adverse reaction aa5 16:24 Drug: fentaNYL (PF) 25 mcg Route: IVP; Site: right antecubital; aa5 17:00 Follow up: Response: No adverse reaction; Pain is decreased aa5 Point of Care Testing: Blood Glucose: 20:15 Blood Glucose: 50 mg/dL; sg Ranges: Critical Glucose Levels:Adult <50 mg/dl or >400 mg/dl <40 mg/dl or >180 mg/dl Disposition: 02/08/20 18:20 Discharged to Home. Impression: Fracture of unspecified part of scapula, left shoulder, Fall on same level from slipping, tripping and stumbling. - Condition is Stable. - Discharge Instructions: Scapular Fracture. - Prescriptions for Tramadol 50 mg Oral Tablet - take 1 tablet by ORAL route every 8 hours as needed; 20 tablet. - Medication Reconciliation Form, Thank You Letter, Antibiotic Education, Prescription Opioid Use form. - Follow up: Vivek Patiño MD; When: 2 - 3 days; Reason: Recheck today's complaints. - Problem is new. - Symptoms have improved. Addendum: 02/10/2020 17:45 Co-signature as Attending Physician, Candido Trinidad MD I agree with the assessment and k dr plan of care. Signatures: Dispatcher [employer] EDMS Russ Red RN RN sg Candido Trinidad MD MD [facility] Nubia Whitehead RN RN aa5 Walter Barfield PA PA cp Corrections: (The following items were deleted from the chart) 02/07 18:21 18:20 02/08/2020 18:20 Discharged to Home. Impression: Fracture of unspecified part of cp scapula, left shoulder. Condition is Stable. Forms are Medication Reconciliation Form, Thank You Letter, Antibiotic Education, Prescription Opioid Use. Follow up: Dr. Vivek Patiño; When: 2 - 3 days; Reason: Recheck today's complaints. Problem is new. Symptoms have improved. cp 20:46 18:21 02/08/2020 18:20 Discharged to Home. Impression: Fracture of unspecified part of sg scapula, left shoulder; Fall on same level from slipping, tripping and stumbling. Condition is Stable. Discharge Instructions: Scapular Fracture. Prescriptions for Tylenol-Codeine #3 300-30 mg Oral Tablet - take 2 tablets by ORAL route every 8-12 hours As needed; 20 tablet. and Forms are Medication Reconciliation Form, Thank You Letter, Antibiotic Education, Prescription Opioid Use. Follow up: Dr. Vivek Patiño; When: 2 - 3 days; Reason: Recheck today's complaints. Problem is new. Symptoms have improved. cp
[2020-02-13 07:57] VITALS: BP 154/75; TEMP 98; O2SAT 98
== END 2020-02-08 20:46 | disposition home or self-care (01) ==
LOC: ER 13:46
DX: S42.192A Fracture of other part of scapula, left shoulder, initial encounter for closed fracture (principal); W18.30XA Fall on same level, unspecified, initial encounter; Y93.89 Activity, other specified; Y92.9 Unspecified place or not applicable; I10 Essential (primary) hypertension; G30.9 Alzheimer's disease, unspecified; F02.80 Dementia in other diseases classified elsewhere, unspecified severity, without behavioral disturbance, psychotic disturbance, mood disturbance, and anxiety; I48.91 Unspecified atrial fibrillation; Z88.0 Allergy status to penicillin; Z88.3 Allergy status to other anti-infective agents; Z88.5 Allergy status to narcotic agent; Z88.6 Allergy status to analgesic agent; Z88.8 Allergy status to other drugs, medicaments and biological substances
CPT/HCPCS: 82947 ×2; 70450; 71250; 72125; 71045; 73060; 96374; 99284; J3010 ×2

== ENCOUNTER 2023-07-13 12:22 | Emergency (ER) | payer OTHER, MEDICARE ==
--- OUTSIDE RECORDS SUMMARY | 2023-07-13 12:24 | XMS REPORT | Continuity of Care Document ---
Author Name Unknown Address [address] [facility] [address] [place] [id number] [facility] thconnect Address [address] [facility] [address] [place] [address] Care Team Providers Care Outsole Skiver Name Role Phone [email or web address] Attending Clinician Unavaila ble [email or web address] Admitting Clinician Unavaila ble Payers Payer Name Policy Type Policy Number Effective Date Expirati on Date Source [id number] [facility] AAR C1 [id number] [facility] C1 [id number] [facility] MEDICARE [place] MB [id number] [facility] MEDICARE [place] MB [id number] [facility] C1 [id number] [facility] Problems Condition Name Condition Details Condition Category Status Onset Date Resolution Date Last Treatment Date Treating Clinician Comments Source [id number] Pain in joint of right knee Problem Active [facility] [id number] Primary osteoarthr itis of right knee Problem Active [facility] Social History Social Habit Start Date Stop Date Quantity Comments Source History of Tobacco Use [facility] Sex Assigned At [facility] Smoking Status Start Date Stop Date Source Never Smoker [facility] Medications Ordered Medication Name Filled Medication Name Start Date Stop Date Current Medication? Ordering Clinician Indication Dosage Frequency Signature (SIG) Comments Components Source Pindolol 10 MG Pindolol 10 MG No Pindolol 10 MG Pantoprazol e Sodium 40 MG Pantoprazol e Sodium 40 MG No Pantoprazo le Sodium 40 MG Gabapentin 300 MG Gabapentin 300 MG No Gabapentin 300 MG Folbee Folbee No Folbee Magnesium 500 MG Magnesium 500 MG No Magnesium 500 MG Donepezil HCl 10 MG Donepezil HCl 10 MG No Donepezil HCl 10 MG Vital Signs Vital Name Observation Time Observation Value Comments S sonny height 2020-02-27 09:00:00 66 [in_i] Commo n [facility] weight 2020-02-27 09:00:00 190 [lb_av] Comm on [facility] temperature 2020-02-27 09:00:00 97.1 [degF] Com mon [facility] bmi 2020-02-27 09:00:00 30.66 kg/m2 Comm on [facility] Encounters Start Date/Time End Date/Time Encounter Type Admission Type Attending Clinicians Care Facility Care Department Encounter ID Source 2021-03-25 12:16:53 Outpatient [facility] [id number] [facility] 2022-12-24 00:00:00 2022-12-24 00:00:00 Outpatient [email or web address] [facility] [id number] [facility] 2020-04-01 00:00:00 2020-04-01 00:00:00 (TEL) [facility] [id number] [facility] 2020-03-24 00:00:00 2020-03-24 00:00:00 (TEL) [facility] [id number] [facility] 2020-02-27 00:00:00 2020-02-27 00:00:00 OFFICE VISIT NEW PT LEVEL 4 [facility] [id number] [facility]
--- NOTE | 2023-07-13 13:21 | RAD REPORT ---
EXAM DESCRIPTION: CT - Head Brain Wo Cont - 07/13/2023 1:09 pm CLINICAL HISTORY: Syncope COMPARISON: 2017 TECHNIQUE: Computed axial tomography of the head was obtained. IV contrast was not requested. All CT scans are performed using dose optimization technique as appropriate and may include automated exposure control or mA/KV adjustment according to patient size. FINDINGS: An intracranial bleed is not seen Prominent cerebral atrophy. Dilatation of ventricles likely sequela of the atrophy. No extra-axial fluid collection is noted. Moderate low-density areas within periventricular, deep and subcortical white matter likely represent ischemic changes secondary to small vessel disease. Fluid within the sinuses/ mastoids is not seen. Mild chronic sinusitis IMPRESSION: No acute intracranial abnormality is seen If patient's symptoms persist MRI of the brain would be recommended
[2023-07-13 13:25] LABS: Absolute Basophils 0.1 K/uL (0-0.5); Absolute Eosinophils 0.2 K/uL (0-0.5); Absolute Lymphocytes (CBC) 1.8 K/uL (0.7-4.9); Absolute Monocytes 0.9 K/uL (0.1-1.3); Absolute Neutrophil 5.8 K/uL (1.8-8.0); Basophils % 0.9 % (0-1.3); Eosinophils % 2.6 % (0-4.4); Hematocrit 37.7 % (36.0-45.0); Hemoglobin 12.3 g/dL (12.0-15.0); Lymphocytes % 20.8 % (15.3-44.8); MCH 30.4 pg (27.0-35.0); MCHC 32.8 g/dL (32.0-36.0); MCV 92.8 fL (80-100); MPV 7.6 fL (7.6-11.3); Monocytes % 10.1 % (3.3-12.3); Neutrophils % 65.6 % (41.7-73.7); Platelets 371 thou/uL (152-406); RBC Red Blood Cell Count 4.06 M/uL (3.86-4.86); Red Cell Distribution Width 13.1 % (12.1-15.2)
[2023-07-13 13:35] LABS: Specific Gravity 1.014 (1.005-1.030); Sqamous Epithelial <5 /HPF (None Seen); Urine Bacteria 20-50 /HPF (<20); Urine Bilirubin 1+ (Negative); Urine Blood Trace (Negative); Urine Clarity Extremely Turbid (Clear); Urine Color Dark-Yellow (Yellow); Urine Culture Reflex Order REFLEXED; Urine Glucose NEGATIVE (Negative); Urine Ketones NEGATIVE (Negative); Urine Microscopic Reflex YN ORDER UMIC; Urine Mucus Slight /HPF (None Seen); Urine Nitrite 1+ (Negative); Urine Protein 2+ (Negative); Urine Urobilinogen 1+ (Normal); Urine WBC >50 /HPF (<5); Urine WBC Clump Many /HPF (None Seen); Urine pH 5.5 (5.0-7.0)
[2023-07-13 13:37] LABS: Protime INR 1.09
[2023-07-13 13:43] LABS: ALT/SGPT 16 U/L (13-56); AST/SGOT 12 U/L (15-37); Albumin 3.3 g/dL (3.4-5.0); Albumin/Globulin Ratio 0.9 (1.1-1.8); Alkaline Phosphatase 92 U/L (45-117); Anion Gap 7.8 mEq/L (5.0-15.0); BUN Blood Urea Nitrogen 16 mg/dL (7-18); Bicarbonate 28 mEq/L (21-32); Bilirubin Total 0.4 mg/dL (0.2-1.0); Globulin 3.7 g/dL (2.3-3.5); Glomerular Filtration Rate 32 ml/min (=/>90); Glucose Level 133 mg/dL (74-106); Magnesium 1.7 mg/dL (1.6-2.4); Potassium 3.8 mEq/L (3.5-5.1); Sodium Level 131 mEq/L (136-145); Troponin High Sensitivity 4.1 pg/mL (<58.9)
[2023-07-13 13:46] LABS: Bilirubin Direct < 0.2 mg/dL (0-0.2); Bilirubin Indirect, Calculated 0.2 mg/dL (0.2-0.8)
--- NOTE | 2023-07-13 13:59 | RAD REPORT ---
EXAM DESCRIPTION: Vic Single View07/13/2023 1:13 pm CLINICAL HISTORY: Hypertension, AFib, syncope COMPARISON: 2019 FINDINGS: The lungs appear clear of acute infiltrate. The heart is probably mildly enlarged IMPRESSION: No acute abnormalities displayed
[2023-07-13] MEDS ORDERED: Levofloxacin500mg IV 500 MG/100 ML BAG IV ONE (14:37)
--- NOTE | 2023-07-13 15:34 | ER ---
Nurse's Notes [facility] Name: Peggy Junior Age: 83 yrs Sex: Female : 1940 Arrival Date: 07/13/2023 Time: 12:22 Bed 3 Private MD: Diagnosis: Hypoglycemia resolved, UTI, near syncope Presentation: 07/12 12:28 Chief complaint: EMS states: " toned out EMS for near syncopal episode and rs5 possible low blood sugars. Pt ate a granola bar and blood sugars were 130 on arrival". 12:28 Coronavirus screen: At this time, the client does not indicate any symptoms associated rs5 with coronavirus-19. Ebola Screen: No symptoms or risks identified at this time. Initial Sepsis Screen: Does the patient meet any 2 criteria? No. Patient's initial sepsis screen is negative. Does the patient have a suspected source of infection? No. Patient's initial sepsis screen is negative. Risk Assessment: Do you want to hurt yourself or someone else? Patient reports no desire to harm self or others. Onset of symptoms was July 13, 2023. 12:28 Method Of Arrival: EMS: [facility] rs5 12:28 Acuity: VICTORINO 3 rs5 Triage Assessment: 12:34 General: Appears in no apparent distress. comfortable, Behavior is calm, cooperative. rs5 Pain: Denies pain. Historical: - Allergies: 12:34 Aspirin; rs5 12:34 Demerol; rs5 12:34 -myocins; rs5 12:34 OPIOID ANALGESICS; rs5 12:34 PENICILLINS; rs5 12:34 Salicylates; rs5 - PMHx: 12:34 gastric ulcers; GERD; GI Bleed; Hypertension; tremors; Von Willebrand disease; Atrial rs5 Fib; Alzheimers; - PSHx: 12:34 None; rs5 - Immunization history:: Adult Immunizations up to date. - Infectious Disease History:: Denies. - Social history:: Smoking status: Patient denies any tobacco usage or history of. Screenin:30 [facility] ED Fall Risk Assessment (Adult) History of falling in the last 3 months, bp including since admission No falls in past 3 months (0 pts). Abuse screen: Denies threats or abuse. Denies injuries from another. Nutritional screening: No deficits noted. Tuberculosis screening: No symptoms or risk factors identified. Assessment: 12:30 General: Appears in no apparent distress. obese, Behavior is calm, cooperative, bp appropriate for age. Pain: Denies pain. Neuro: Level of Consciousness is awake, alert, obeys commands, Oriented to Appropriate for age. Cardiovascular: No deficits noted. Rhythm is sinus bradycardia. Respiratory: No deficits noted. GI: No signs and/or symptoms were reported involving the gastrointestinal system. : No signs and/or symptoms were reported regarding the genitourinary system. EENT: No deficits noted. Derm: No deficits noted. Musculoskeletal: No deficits noted. 13:30 Reassessment: Patient appears in no apparent distress at this time. Patient is alert, bp oriented x 3, equal unlabored respirations, skin warm/dry/pink. 14:40 Reassessment: No changes from previously documented assessment. rs5 15:55 Reassessment: Patient and/or family updated on plan of care and expected duration. Pain rs5 level reassessed. Patient is alert, oriented x 3, equal unlabored respirations, skin warm/dry/pink. Patient states feeling better. Vital Signs: 12:28 BP 169 / 65; Pulse 51; Resp 18; Temp 97.8(O); Pulse Ox 97% ; rs5 13:30 BP 140 / 58; Pulse 51; Resp 16; Pulse Ox 98% ; bp 14:18 BP 147 / 58 Supine; Pulse 51; jg11 14:18 BP 159 / 63 Sitting; Pulse 57 MON; jg11 14:18 BP 157 / 69 Standing; Pulse 54 MON; jg11 15:50 BP 155 / 66; Pulse 61; Resp 18; Pulse Ox 99% on R/A; rs5 ED Course: 12:27 Patient arrived in ED. ll1 12:27 Irasema Christina MD is Attending Physician. sp3 12:28 Viral Freeman, AILYN is Primary Nurse. rs5 12:30 Maintain EMS IV. Dressing intact. Good blood return noted. Site clean \\T\\ dry. Gauge \\T\\ bp site: 20 GA R AC. 12:30 Arm band placed on. bp 12:33 Triage completed. rs5 13:00 Chest Single View XRAY Sent. bp 13:10 CT Head Brain wo Cont In Process Unspecified. EDMS 13:13 Chest Single View XRAY In Process Unspecified. EDMS 13:30 Patient has correct armband on for positive identification. bp 16:01 No provider procedures requiring assistance completed. IV discontinued, intact, rs5 bleeding controlled, No redness/swelling at site. Pressure dressing applied. Administered Medications: 14:42 Drug: levofloxacin IVPB 500 mg 100 ml IVPB once over 60 mins Volume: 100 ml; Route: bp IVPB; Infused Over: 60 mins; Site: right antecubital; 15:01 Follow up: Response: No adverse reaction rs5 Medication: 13:30 VIS not applicable for this client. bp Outcome: 15:33 Discharge ordered by . sp3 16:01 Patient left the ED. rs5 16:01 Discharged to home ambulatory, with family, rs5 16:01 Condition: stable 16:01 Discharge instructions given to patient, family, Instructed on discharge instructions, follow up and referral plans. Demonstrated understanding of instructions, follow-up care, Signatures: Dispatcher [employer] EDMS Lenin Cid RN RN bp Lewis, Lynsay, RN RN ll1 Irasema Christina MD MD sp3 Viral Freeman RN RN rs5 Adrien Kumar jg11 Corrections: (The following items were deleted from the chart) 17:33 16:24 Patient left the ED. rs5 rs5
--- NOTE | 2023-07-13 15:34 | EDPHYS ---
Physician Documentation [facility] Name: Peggy Junior Age: 83 yrs Sex: Female : 1940 Arrival Date: 07/13/2023 Time: 12:22 Bed 3 Private MD: ED Physician Irasema Christina HPI: 07/12 12:45 This 83 yrs old Female presents to ER via EMS with complaints of Near Syncope. sp3 12:45 83-year-old female with a history of hypertension, von Willebrand's disease, atrial sp3 fibrillation, gastric ulcers and prior spontaneous hypoglycemia now presents to the ED with chief complaint near syncope and probable hypoglycemic episode described as "about to pass out" with diaphoresis fully resolved after eating presents to the ED for the same symptoms. Symptoms are mostly resolved. EMS Accu-Chek was 132 after she had eaten. Currently she denies any ongoing symptoms including headache, near syncope, syncope, neck pain, URI symptoms, fever, chest pain, shortness of breath, back pain, abdominal pain, nausea, vomit, diarrhea, rash, focal neurological deficit, or any other signs or symptoms on ROS at this time.. Historical: - Allergies: 12:34 Aspirin; rs5 12:34 Demerol; rs5 12:34 -myocins; rs5 12:34 OPIOID ANALGESICS; rs5 12:34 PENICILLINS; rs5 12:34 Salicylates; rs5 - PMHx: 12:34 gastric ulcers; GERD; GI Bleed; Hypertension; tremors; Von Willebrand disease; Atrial rs5 Fib; Alzheimers; - PSHx: 12:34 None; rs5 - Immunization history:: Adult Immunizations up to date. - Infectious Disease History:: Denies. - Social history:: Smoking status: Patient denies any tobacco usage or history of. ROS: 12:46 Constitutional: Negative for fever, chills, and weight loss, Eyes: Negative for injury, sp3 pain, redness, and discharge, ENT: Negative for injury, pain, and discharge, Neck: Negative for injury, pain, and swelling, Cardiovascular: Negative for chest pain, palpitations, and edema, Respiratory: Negative for shortness of breath, cough, wheezing, and pleuritic chest pain, Abdomen/GI: Negative for abdominal pain, nausea, vomiting, diarrhea, and constipation, MS/Extremity: Negative for injury and deformity, Skin: Negative for injury, rash, and discoloration, Psych: Negative for depression, anxiety, suicide ideation, homicidal ideation, and hallucinations, Allergy/Immunology: Negative for hives, rash, and allergies, Hematologic/Lymphatic: Negative for swollen nodes, abnormal bleeding, and unusual bruising, 12:46 All other systems are negative, Exam: 12:46 Constitutional: This is a well developed, well nourished patient who is awake, alert, sp3 and in no acute distress. Head/Face: Normocephalic, atraumatic. Eyes: Pupils equal round and reactive to light, extra-ocular motions intact. Lids and lashes normal. Conjunctiva and sclera are non-icteric and not injected. Cornea within normal limits. Periorbital areas with no swelling, redness, or edema. ENT: Nares patent. No nasal discharge, no septal abnormalities noted. External auditory canals are clear. Oropharynx with no redness, swelling, or masses, exudates, or evidence of obstruction, uvula midline. Mucous membranes moist. Neck: Trachea midline, no thyromegaly or masses palpated, and no cervical lymphadenopathy. Supple, full range of motion without nuchal rigidity, or vertebral point tenderness. No Meningismus. Chest/axilla: Normal chest wall appearance and motion. Nontender with no deformity. No lesions are appreciated. Cardiovascular: Regular rate and rhythm with a normal S1 and S2. No gallops, murmurs, or rubs. Normal PMI, no JVD. No pulse deficits. Respiratory: Lungs have equal breath sounds bilaterally, clear to auscultation and percussion. No rales, rhonchi or wheezes noted. No increased work of breathing, no retractions or nasal flaring. Abdomen/GI: Soft, non-tender, with normal bowel sounds. No distension or tympany. No guarding or rebound. No evidence of tenderness throughout. Back: No spinal tenderness. No costovertebral tenderness. Full range of motion. Skin: Warm, dry with normal turgor. Normal color with no rashes, no lesions, and no evidence of cellulitis. MS/ Extremity: Pulses equal, no cyanosis. Neurovascular intact. Full, normal range of motion. Neuro: Awake and alert, GCS 15, oriented to person, place, time, and situation. Cranial nerves II-XII grossly intact. Motor strength 5/5 in all extremities. Sensory grossly intact. Cerebellar exam normal. Normal gait. Psych: Awake, alert, with orientation to person, place and time. Behavior, mood, and affect are within normal limits. 13:52 ECG was reviewed by the Attending Physician. EKG demonstrates sinus bradycardia 53 bpm sp3 with first-degree AV block with a SD interval of 230, occasional PVC, slightly leftward axis and nonspecific diffuse ST's ST changes without evidence of acute ischemia. EKG is not significantly changed from prior except for the first-degree AV block with last EKG September 2018. Vital Signs: 12:28 BP 169 / 65; Pulse 51; Resp 18; Temp 97.8(O); Pulse Ox 97% ; rs5 13:30 BP 140 / 58; Pulse 51; Resp 16; Pulse Ox 98% ; bp 14:18 BP 147 / 58 Supine; Pulse 51; jg11 14:18 BP 159 / 63 Sitting; Pulse 57 MON; jg11 14:18 BP 157 / 69 Standing; Pulse 54 MON; jg11 15:50 BP 155 / 66; Pulse 61; Resp 18; Pulse Ox 99% on R/A; rs5 MDM: 12:30 Patient medically screened. sp3 12:46 Data reviewed: vital signs, nurses notes, EMS record, old medical records, lab test sp3 result(s), EKG, radiologic studies. ED course: 83-year-old female with probable hypoglycemic episode. Differential diagnosis includes hypoglycemic episode, electrolyte abnormality, orthostatic hypotension, and to a lesser likelihood ACS, pulmonary/infection, arrhythmia, TIA/CVA. Workup will include CT scan of the head, laboratory values, urine analysis, orthostatic vital signs and ongoing mental status checks and blood sugar evaluation. Probable discharge home if workup is negative with general precautions and follow-up to PCP.. 15:32 ED course: Full workup negative including laboratory values and CT scan of the head. sp3 Urine does demonstrate UTI which she has had before. We will treat with Levaquin IV 1 dose and discharged home on Levaquin p.o. with follow-up to PCP. All symptoms resolved and patient feels back to her baseline status.. 07/12 12:31 Order name: Basic Metabolic Panel; Complete Time: 14:04 sp3 07/12 12:31 Order name: CBC with Diff; Complete Time: 14:04 sp3 07/12 12:31 Order name: Hepatic Function; Complete Time: 14:04 sp3 07/12 12:31 Order name: Magnesium; Complete Time: 14:04 sp3 07/12 12:31 Order name: Protime (+inr); Complete Time: 14:04 sp3 07/12 12:31 Order name: Troponin High Sensitivity; Complete Time: 14:04 sp3 07/12 12:31 Order name: Urinalysis w/ reflexes; Complete Time: 14:04 sp3 07/12 13:38 Order name: Urine Culture EDMS 07/12 12:31 Order name: CT Head Brain wo Cont; Complete Time: 14:04 sp3 07/12 12:31 Order name: Chest Single View XRAY; Complete Time: 14:04 sp3 07/12 12:31 Order name: EKG; Complete Time: 12:32 sp3 07/12 12:31 Order name: Cardiac monitoring; Complete Time: 13:00 sp3 07/12 12:31 Order name: EKG - Nurse/Tech; Complete Time: 13:44 sp3 07/12 12:31 Order name: IV Saline Lock; Complete Time: 13:00 sp3 07/12 12:31 Order name: Labs collected and sent; Complete Time: 13:44 sp3 07/12 12:31 Order name: NPO; Complete Time: 13:00 sp3 07/12 12:31 Order name: O2 Sat Monitoring; Complete Time: 13:00 sp3 07/12 12:31 Order name: Orthostatics; Complete Time: 14:43 sp3 Administered Medications: 14:42 Drug: levofloxacin IVPB 500 mg 100 ml IVPB once over 60 mins Volume: 100 ml; Route: bp IVPB; Infused Over: 60 mins; Site: right antecubital; 15:01 Follow up: Response: No adverse reaction rs5 Disposition Summary: 07/13/23 15:33 Discharge Ordered Notes: Location: Home sp3 Condition: Stable sp3 Diagnosis - Hypoglycemia resolved, UTI, near syncope sp3 Followup: sp3 - With: Private Physician - When: Upon discharge from the Emergency Department - Reason: Continuance of care Discharge Instructions: - Discharge Summary Sheet sp3 - Hypoglycemia sp3 - Urinary Tract Infection, Adult sp3 Forms: - Medication Reconciliation Form sp3 - Antibiotic Education sp3 - Prescription Opioid Use sp3 - Patient Portal Instructions sp3 - Leadership Thank You Letter sp3 Prescriptions: - levofloxacin 500 mg Oral tablet - take 1 tablet ORAL route once daily for 7 days; 6 tablet; Refills: 0, Product sp3 Selection Permitted Signatures: Dispatcher [employer] Lenin Jeffery, RN RN Irasema Espinoza MD MD sp3 Viral Freeman RN RN rs5
[2023-07-13 16:55] VITALS: BP 157/69; TEMP 97.8; O2SAT 98
== END 2023-07-13 16:24 | disposition home or self-care (01) ==
LOC: ER 12:22
DX: N39.0 Urinary tract infection, site not specified (principal); D68.00 Von Willebrand disease, unspecified; G30.9 Alzheimer's disease, unspecified; F02.80 Dementia in other diseases classified elsewhere, unspecified severity, without behavioral disturbance, psychotic disturbance, mood disturbance, and anxiety; Z88.0 Allergy status to penicillin; Z88.3 Allergy status to other anti-infective agents; Z88.5 Allergy status to narcotic agent; Z88.6 Allergy status to analgesic agent; Z88.8 Allergy status to other drugs, medicaments and biological substances
CPT/HCPCS: 36415; 70450; 71045; 80048; 80076; 81001; 83735; 84484; 85025; 85610; 87086; 87088; 93005